=== PATIENT | male | born 1945 | race Hispanic/Latino ===

== ENCOUNTER 2018-09-01 10:08 | Emergency (ER) | payer OTHER ==
--- OUTSIDE RECORDS SUMMARY | 2018-09-01 10:10 | XMS REPORT | Clinical Summary ---
:1945 Author Organization [facility] Address [address] [place] [address] Care Team Providers Name Role Phone Asked, No Pcp Primary Care Provider Unavailable Allergies Not on File Medications Not on file Active Problems Not on file Encounters Date Type Specialty Care Team Description 07/07/2018 Hospital Encounter Radiology Alberto Gavin MD Malignant neoplasm of cecum (HCC) 07/07/2018 Lab Lab Alberto Gavin MD Malignant neoplasm of cecum (HCC) (Primary Dx) 06/29/2018 Transcribe Orders Access Alberto Gavin MD Malignant neoplasm of cecum (HCC) (Primary Dx) after 08/31/2017 Social History Tobacco Use Types Packs/Day Years Used Date Never Assessed Sex Assigned at Date Recorded Not on file Job Start Date Occupation Industry Not on file Not on file Not on file Travel History Travel Start Travel End No recent travel history available. Last Filed Vital Signs Vital Sign Reading Time Taken Blood Pressure - - Pulse - - Temperature - - Respiratory Rate - - Oxygen Saturation - - Inhaled Oxygen Concentration - - Weight 88 kg (194 lb) 07/07/2018 9:54 AM RECORD FILING CLERK Height 167.6 cm (5' 6") 07/07/2018 9:54 AM RECORD FILING CLERK Body Mass Index 31.31 07/07/2018 9:54 AM RECORD FILING CLERK Plan of Treatment Health Maintenance Due Date Last Done Comments COLON CANCER SCREENING 1993 SHINGLES VACCINES (1 of 2) 1993 INFLUENZA VACCINE 03/02/2018 PNEUMOCOCCAL-13 Completed 12/18/2015 PNEUMOCOCCAL POLYSACCHARIDE VACCINE AGE 65 AND OVER Completed 11/05/2017 Procedures Procedure Name Priority Date/Time Associated Comments Diagnosis CT CHEST WO CONTRAST Routine 07/07/2018 11:41 Malignant neoplasm Results for this ABDOMEN WO CONTRAST AM RECORD FILING CLERK of cecum (HCC) procedure are in PELVIS WO CONTRAST the results section. ESTIMATED GFR Routine 07/07/2018 9:28 Results for this AM RECORD FILING CLERK procedure are in the results section. CARCINOEMBRYONIC ANTIGEN Routine 07/07/2018 9:28 Malignant neoplasm Results for this (CEA) AM RECORD FILING CLERK of cecum (HCC) procedure are in the results section. COMPREHENSIVE METABOLIC Routine 07/07/2018 9:28 Malignant neoplasm Results for this PANEL AM RECORD FILING CLERK of cecum (HCC) procedure are in the results section. HC COMPLETE BLD COUNT Routine 07/07/2018 9:00 Malignant neoplasm Results for this W/AUTO DIFF AM RECORD FILING CLERK of cecum (HCC) procedure are in the results section. after 08/31/[address] Chest Wo Contrast Abdomen Wo Contrast Pelvis Wo Contrast (07/07/2018 11:41 AM RECORD FILING CLERK) Narrative Performed At CT CHEST WO CONTRAST ABDOMEN WO CONTRAST PELVIS WO CONTRAST HM RADIANT CLINICAL INDICATION:C18.0 Malignant neoplasm of cecum, C18.0 TECHNIQUE: Multidetector CT examination of the chest, abdomen, and pelvis was performed without iodinated contrast with automated exposure control and/or iterative reconstruction techniques to radiation dose. . COMPARISON:06/17/2017 FINDINGS: Note, exam is limited without intravenous contrast evaluation for metastatic disease. CHEST: *There are multiple calcified granulomas , largest in the anterior right lower lobe 4 mm. There is a noncalcified 3 mm nodule in the right middle lobe anterior to this nodule which is unchanged from 05/27/2016. No new pulmonary nodules are identified. *There is no pathological adenopathy in the chest. *The heart is mildly enlarged with advanced calcific coronary disease with changes of CABG. The aorta and pulmonary arteries are stable with dilated central pulmonary arteries consistent with mild pulmonary arterial hypertension. *Tyroid, trachea and central airways within normal limits. ABDOMEN: *A stable 6 mm too small to characterize probable cyst involves the lateral left hepatic lobe unchanged from 2016. No new lesions identified in liver to suggest neoplasm. *Status post cholecystectomy with stable dilatation of the common bile duct and measures 10 mm. *Pancreas, spleen, adrenal glands, and kidneys are without suspicious mass or change noting chronic atrophy of the left kidney with compensatory hypertrophic changes. *The stomach, small bowel, and colon are unchanged with multiple diverticula through the left colon. The colon is collapsed with stable changes of partial colectomy and unremarkable appearance of the ileocolic anastomosis. *There is no pathological adenopathy in the abdomen. No ascites is apparent. PELVIS: *There are multiple large calculi involving the urinary bladder as before. *Prostate and seminal vesicles are unremarkable apart from stable nonspecific calcifications. *No free fluid. *No pathological adenopathy. BONES: *No lytic or blastic osseous lesion is identified. *There is mild levo dextrocurvature of the lumbar spine. Mild retrolisthesis of L1 on L2. IMPRESSION: No findings for metastatic disease in the chest, abdomen, or pelvis. Thank you for allowing us to participate in the care of your patient. [facility]-[id number] Procedure [address] [facility], Radiology Results Incoming - 07/07/2018 2:45 PM RECORD FILING CLERK CT CHEST WO CONTRAST ABDOMEN WO CONTRAST PELVIS WO CONTRAST CLINICAL INDICATION: C18.0 Malignant neoplasm of cecum, C18.0 TECHNIQUE: Multidetector CT examination of the chest, abdomen, and pelvis was performed without iodinated contrast with automated exposure control and/or iterative reconstruction techniques to radiation dose. . COMPARISON: 06/17/2017 FINDINGS: Note, exam is limited without intravenous contrast evaluation for metastatic disease. CHEST: * There are multiple calcified granulomas , largest in the anterior right lower lobe 4 mm. There is a noncalcified 3 mm nodule in the right middle lobe anterior to this nodule which is unchanged from 05/27/2016. No new pulmonary nodules are identified. * There is no pathological adenopathy in the chest. * The heart is mildly enlarged with advanced calcific coronary disease with changes of CABG. The aorta and pulmonary arteries are stable with dilated central pulmonary arteries consistent with mild pulmonary arterial hypertension. * Tyroid, trachea and central airways within normal limits. ABDOMEN: * A stable 6 mm too small to characterize probable cyst involves the lateral left hepatic lobe unchanged from 2016. No new lesions identified in liver to suggest neoplasm. * Status post cholecystectomy with stable dilatation of the common bile duct and measures 10 mm. * Pancreas, spleen, adrenal glands, and kidneys are without suspicious mass or change noting chronic atrophy of the left kidney with compensatory hypertrophic changes. * The stomach, small bowel, and colon are unchanged with multiple diverticula through the left colon. The colon is collapsed with stable changes of partial colectomy and unremarkable appearance of the ileocolic anastomosis. * There is no pathological adenopathy in the abdomen. No ascites is apparent. PELVIS: * There are multiple large calculi involving the urinary bladder as before. * Prostate and seminal vesicles are unremarkable apart from stable nonspecific calcifications. * No free fluid. * No pathological adenopathy. BONES: * No lytic or blastic osseous lesion is identified. * There is mild levo dextrocurvature of the lumbar spine. Mild retrolisthesis of L1 on L2. IMPRESSION: No findings for metastatic disease in the chest, abdomen, or pelvis. Thank you for allowing us to participate in the care of your patient. [facility]-[id number] Performing Organization Address City/[facility]/Zipcode Phone Number [facility] [address] [place] [phone] Estimated GFR (07/07/2018 9:28 AM RECORD FILING CLERK) Estimated GFR 37 (A) mL/min/1.73 m2 [facility] Comment: HOSPITAL CatergoryUnitsInterpretation G1 >=90 Normal or high G2 60-89Mildly decreased [id number] to moderately decreased [id number] to severely decreased G4 15-29Severely decreased G5 <15Kidney failure The eGFR was calculated using the Chronic Kidney Disease Epidemiology Collaboration (CKD-EPI) equation. Interpretation is based on recommendations of the National Kidney Foundation-Kidney Disease Outcomes Quality Initiative (NKF-KDOQI) published in 2014. Specimen Plasma specimen Performing Organization Address [facility] Hospital[facility] Phone Number [facility] DEPARTMENT OF PATHOLOGY AND [address] [place] [phone] [address] Carcinoembryonic antigen (CEA) (07/07/2018 9:28 AM RECORD FILING CLERK) CEA 4.2 (H) 0.0 - 3.8 ng/mL [facility] Comment: Reference range for heavy smokers:0.0 - 5.5 ng/mL The SANDRA Ernestina 8000 CEA immunoassay was used. Results obtained with different assay methods or kits should not be used interchangeably and may be different. Specimen Serum Performing Organization Address [facility]/Zipcode Phone Number [facility] DEPARTMENT OF PATHOLOGY AND [address] [place] [phone] [address] Comprehensive metabolic panel (07/07/2018 9:28 AM RECORD FILING CLERK) Sodium 140 135 - 148 mEq/L [facility] Potassium 4.8 3.5 - 5.0 mEq/L [facility] Chloride 102 98 - 112 mEq/L [facility] CO2 24 24 - 31 mEq/L [facility] Anion gap 14@ANIO 7 - 15 mEq/L [facility] BUN 27 (H) 8 - 23 mg/dL [facility] Creatinine 1.76 (H) 0.70 - 1.20 mg/dL [facility] Glucose 172 (H) 65 - 99 mg/dL [facility] Calcium 9.9 8.8 - 10.2 mg/dL [facility] Protein 7.5 6.3 - 8.3 g/dL [facility] Comment: HOSP[facility] [place] 4.6-7.0 g/dL 1 week 4.4-7.6 g/dL 7 months-1year5.1-7.3 g/dL 1-2 years5.6-7.5 g/dL >3 years6.0-8.0 g/dL 18-150 6.3-8.3 g/dL Albumin 4.1 3.5 - 5.0 g/dL [facility] A/G ratio 1.2 0.7 - 3.8 [facility] Alkaline phosphatase 85 40 - 129 U/L [facility] AST 30 10 - 50 U/L [facility] ALT 25 5 - 50 U/L [facility] Total bilirubin 0.7 0.0 - 1.2 mg/dL [facility] Specimen Plasma specimen Performing Organization Address City/State/Zipcode Phone Number [facility] DEPARTMENT OF PATHOLOGY AND [address] [place] [address] GENOMIC MEDICINE [address] [address] CBC with platelet and differential (07/07/2018 9:00 AM RECORD FILING CLERK) WBC 7.79 4.50 - 11.00 k/uL [facility] RBC 5.34 4.40 - 6.00 m/uL [facility] HGB 15.5 14.0 - 18.0 g/dL [facility] HCT 48.0 41.0 - 51.0 % [facility] MCV 89.9 82.0 - 100.0 fL [facility] MCH 29.0 27.0 - 34.0 pg [facility] MCHC 32.3 31.0 - 37.0 g/dL [facility] RDW - SD 46.5 37.0 - 55.0 fL [facility] MPV 10.3 8.8 - 13.2 fL [facility] Platelet count 129 (L) 150 - 400 k/uL [facility] Nucleated RBC 0.00 /100 WBC [facility] Neutrophils 65.6 39.0 - 69.0 % [facility] Lymphocytes 23.9 (L) 25.0 - 45.0 % [facility] Monocytes 8.0 0.0 - 10.0 % [facility] Eosinophils 1.7 0.0 - 5.0 % [facility] Basophils 0.4 0.0 - 1.0 % [facility] Immature granulocytes 0.4Comment: "Immature 0.0 - 1.0 % [facility] granulocytes" [facility] (promyelocytes, myelocytes, metamyelocytes) Specimen Blood Performing Organization Address City/State/Zipcode Phone Number [facility] DEPARTMENT OF PATHOLOGY AND [address] [place] [address] GENOMIC MEDICINE [address] [address] after 08/31/2017 Insurance Payer Benefit Plan / Group Subscriber ID Type Phone Address MEDICARE MEDICARE PART A AND B xxxxxxxxxxx Medicare [place], [place] (Home) [place] [address] Advance Directives Patient has advance care planning documents on file. For more information, please contact:[address] [address]
[2018-09-01 11:11] LABS: Absolute Lymphocytes (CBC) 0.8 K/uL (0.7-4.9); Absolute Monocytes 0.6 K/uL (0.1-1.3); Absolute Neutrophil 6.1 K/uL (1.8-8.0); Basophils % 0.2 % (0-1.3); Lymphocytes % 10.5 % (15.3-44.8); MPV 8.8 fL (7.6-11.3); Monocytes % 7.5 % (3.3-12.3); RBC Red Blood Cell Count 5.26 M/uL (4.33-5.43)
[2018-09-01 11:27] LABS: Albumin 3.7 g/dL (3.4-5.0); Bilirubin Total 0.5 mg/dL (0.2-1.0); Potassium 3.7 mmol/L (3.5-5.1)
--- NOTE | 2018-09-01 13:16 | EDPHYS ---
Physician Documentation [facility] Name: Penelope De Leon Age: 72 yrs Sex: Male : 1945 Arrival Date: 09/01/2018 Time: 10:11 Bed 19 Private MD: ED Physician Trey Headley HPI: 09/01 10:53 This 72 yrs old Male presents to ER via EMS with complaints of Low Blood Sugar.jmm 10:53 The patient or guardian reports hypoglycemia. Onset: The symptoms/episode jmm began/occurred acutely, today. Associated signs and symptoms: Pertinent negatives: vomiting. This is a 72 year old male with a history of IDDM, HTN, CAD that presents to the ED with low blood glucose. Patient states he took his blood glucose at home this morning which was 101. Patient states then injecting 38 units of soliqua. Patient states his blood glucose dropped. Patient states he normally does not administer on an empty stomach. Patient denies other symptoms. . Historical: - Allergies: 10:43 No Known Allergies; aj1 - Home Meds: 10:43 Multaq 400 mg oral tab 1 tab 2 times per day [Active]; aspirin 81 mg Oral chew 1 tab aj1 once daily [Active]; hydralazine 25 mg Oral tab 1 tab 3 times daily [Active]; losartan 100 mg oral tab 1 tab once daily [Active]; Synthroid 88 mcg Oral tab 1 tab once daily [Active]; Januvia 25 mg oral tab at lunchtime [Active]; pravastatin 40 mg oral tab 1 tab once daily [Active]; allopurinol 300 mg Oral tab 1 tab once daily [Active]; terazosin 2 mg oral cap 1 cap once daily [Active]; soliqua 38 units [Active]; alprazolam 0.25 mg Oral tab 1 tab as needed [Active]; - PMHx: 10:43 Diabetes - NIDDM; Hypertension; Hypothyroidism; bypass x6; Atrial Fib; Hyperlipidemia; aj1 Gout; - Immunization history:: Flu vaccine is up to date. - Social history:: Smoking status: Patient/guardian denies using tobacco. - Ebola Screening: : Patient denies travel to an Ebola-affected area in the 21 days before illness onset. ROS: 10:53 Constitutional: Negative for fever, chills, and weight loss, Cardiovascular: Negative jmm for chest pain, palpitations, and edema, Respiratory: Negative for shortness of breath, cough, wheezing, and pleuritic chest pain, Neuro: Negative for headache, weakness, numbness, tingling, and seizure. 10:53 All other systems are negative. Exam: 10:53 Constitutional: This is a well developed, well nourished patient who is awake, alert, jmm and in no acute distress. Head/Face: atraumatic. Eyes: EOMI, no conjunctival erythema appreciated ENT: Moist Mucus Membranes Neck: Trachea midline, Supple Chest/axilla: Normal chest wall appearance and motion. 10:53 Abdomen/GI: Non distended, soft Back: Normal ROM Skin: General appearance color normal MS/ Extremity: Moves all extremities, no obvious deformities appreciated, no edema noted to the lower extremities Neuro: Awake and alert, normal gait Psych: Behavior is normal, Mood is normal, Patient is cooperative and pleasant 10:53 Cardiovascular: Rate: normal, Rhythm: regular. 10:53 Respiratory: the patient does not display signs of respiratory distress, Respirations: normal, Breath sounds: are clear throughout. Vital Signs: 10:43 BP 147 / 97; Pulse 65; Resp 18; Temp 98.7; Pulse Ox 97% on R/A; Weight 88.9 kg (R); aj1 Height 5 ft. 6 in. (167.64 cm) (R); Pain 0/10; 12:49 BP 177 / 80; Pulse 72; Resp 18; Pulse Ox 97% on R/A; aj1 10:43 Body Mass Index 31.63 (88.90 kg, 167.64 cm) 1 MDM: 10:51 Patient medically screened. [facility] 13:14 Data reviewed: vital signs, nurses notes. Counseling: I had a detailed discussion with martin the patient and/or guardian regarding: the historical points, exam findings, and any diagnostic results supporting the discharge/admit diagnosis, lab results, the need for outpatient follow up, to return to the emergency department if symptoms worsen or persist or if there are any questions or concerns that arise at home. ED course: BGL stable in the ER. Patient is advised to hold Januvia today and eat small frequent meals and can then continue normal medication. Patient and family understood and agree with the plan of care. . 09/01 10:51 Order name: CBC with Diff [facility] 09/01 10:51 Order name: CMP [facility] 09/01 10:51 Order name: Saline Lock; Complete Time: 10:55 [facility] 09/01 13:01 Order name: Fingerstick Glucose; Complete Time: 13:09 [facility] Administered Medications: No medications were administered Point of Care Testing: Blood Glucose: 11:02 Blood Glucose: 165 mg/dL; aj1 11:50 Blood Glucose: 128 mg/dL; dh3 12:48 Blood Glucose: 144 mg/dL; aj1 Ranges: Critical Glucose Levels:Adult <50 mg/dl or >400 mg/dl <40 mg/dl or >180 mg/dl Disposition: 16:14 Co-signature as Attending Physician, Trey Headley MD I agree with the assessment and kdr plan of care. Disposition: 09/01/18 13:15 Discharged to Home. Impression: Hypoglycemia, unspecified. - Condition is Stable. - Discharge Instructions: Hypoglycemia. - Medication Reconciliation Form, Thank You Letter, Antibiotic Education, Prescription Opioid Use form. - Follow up: Private Physician; When: 2 - 3 days; Reason: Recheck today's complaints, Continuance of care, Re-evaluation by your physician. Signatures: Dispatcher [employer] Rina Fan RN RN aj1 Trey Headley MD MD kdr Mickail, Joel, PA PA jm Kristine Weber, TRACEY RN ss Corrections: (The following items were deleted from the chart) 13:43 13:15 09/01/2018 13:15 Discharged to Home. Impression: Hypoglycemia, unspecified. ss Condition is Stable. Forms are Medication Reconciliation Form, Thank You Letter, Antibiotic Education, Prescription Opioid Use. Follow up: Private Physician; When: 2 - 3 days; Reason: Recheck today's complaints, Continuance of care, Re-evaluation by your physician. [facility]
--- NOTE | 2018-09-01 13:16 | ER ---
Nurse's Notes [facility] Name: Penelope De Leon Age: 72 yrs Sex: Male : 1945 Arrival Date: 09/01/2018 Time: 10:11 Bed 19 Private MD: Diagnosis: Hypoglycemia, unspecified Presentation: 09/01 10:34 Presenting complaint: EMS states: When he got up this morning he checked his blood aj1 sugar and it was 101, so he took his insulin, but he did not eat breakfast. He told his he was not feeling good and when she rechecked his blood sugar it was 34. She gave him a Coke and some orange juice, on EMS arrival patient's FSBS was 38. Patient was given Glucose 25 Gms PO and FSBS increased to 415, but en route dropped again to 62. Patient was started on Dextrose 10% IV solution. FSBS upon arrival to ER is 291. Patient states that he is feeling better. Transition of care: patient was not received from another setting of care. Onset of symptoms was September 01, 2018. Risk Assessment: Do you want to hurt yourself or someone else? Patient reports no desire to harm self or others. Initial Sepsis Screen: Does the patient meet any 2 criteria? No. Patient's initial sepsis screen is negative. Does the patient have a suspected source of infection? No. Patient's initial sepsis screen is negative. Care prior to arrival: None. 10:34 Method Of Arrival: EMS: [facility] aj1 10:34 Acuity: FER 3 aj1 Triage Assessment: 10:43 General: Appears in no apparent distress. comfortable, Behavior is calm. Pain: Denies aj1 pain. Historical: - Allergies: 10:43 No Known Allergies; aj1 - Home Meds: 10:43 Multaq 400 mg oral tab 1 tab 2 times per day [Active]; aspirin 81 mg Oral chew 1 tab aj1 once daily [Active]; hydralazine 25 mg Oral tab 1 tab 3 times daily [Active]; losartan 100 mg oral tab 1 tab once daily [Active]; Synthroid 88 mcg Oral tab 1 tab once daily [Active]; Januvia 25 mg oral tab at lunchtime [Active]; pravastatin 40 mg oral tab 1 tab once daily [Active]; allopurinol 300 mg Oral tab 1 tab once daily [Active]; terazosin 2 mg oral cap 1 cap once daily [Active]; soliqua 38 units [Active]; alprazolam 0.25 mg Oral tab 1 tab as needed [Active]; - PMHx: 10:43 Diabetes - NIDDM; Hypertension; Hypothyroidism; bypass x6; Atrial Fib; Hyperlipidemia; aj1 Gout; - Immunization history:: Flu vaccine is up to date. - Social history:: Smoking status: Patient/guardian denies using tobacco. - Ebola Screening: : Patient denies travel to an Ebola-affected area in the 21 days before illness onset. Screenin:45 Abuse screen: Denies threats or abuse. Denies injuries from another. Nutritional aj1 screening: No deficits noted. Tuberculosis screening: No symptoms or risk factors identified. Assessment: 10:45 General: Appears in no apparent distress. comfortable, Behavior is calm, cooperative, aj1 appropriate for age. Pain: Denies pain. Neuro: Level of Consciousness is awake, alert, obeys commands, Oriented to person, place, time, situation, Moves all extremities. Full function Speech is normal. Cardiovascular: Patient's skin is warm and dry. Respiratory: Airway is patent Respiratory effort is even, unlabored, Respiratory pattern is regular, symmetrical. GI: No signs and/or symptoms were reported involving the gastrointestinal system. : No signs and/or symptoms were reported regarding the genitourinary system. EENT: No signs and/or symptoms were reported regarding the EENT system. Derm: No signs and/or symptoms reported regarding the dermatologic system. Skin is pink, warm \T\ dry. normal. Musculoskeletal: No signs and/or symptoms reported regarding the musculoskeletal system. Circulation, motion, and sensation intact. 10:47 Reassessment: Patient given a sandwich and fruit cup. aj1 11:45 Reassessment: Patient appears in no apparent distress at this time. No changes from aj1 previously documented assessment. Patient and/or family updated on plan of care and expected duration. Pain level reassessed. Patient is alert, oriented x 3, equal unlabored respirations, skin warm/dry/pink. 12:49 Reassessment: Patient appears in no apparent distress at this time. No changes from aj1 previously documented assessment. Patient and/or family updated on plan of care and expected duration. Pain level reassessed. Patient is alert, oriented x 3, equal unlabored respirations, skin warm/dry/pink. 13:43 Reassessment: Patient appears in no apparent distress at this time. No changes from aj1 previously documented assessment. Patient and/or family updated on plan of care and expected duration. Pain level reassessed. Patient is alert, oriented x 3, equal unlabored respirations, skin warm/dry/pink. Vital Signs: 10:43 BP 147 / 97; Pulse 65; Resp 18; Temp 98.7; Pulse Ox 97% on R/A; Weight 88.9 kg (R); aj1 Height 5 ft. 6 in. (167.64 cm) (R); Pain 0/10; 12:49 BP 177 / 80; Pulse 72; Resp 18; Pulse Ox 97% on R/A; aj1 10:43 Body Mass Index 31.63 (88.90 kg, 167.64 cm) [facility] ED Course: 10:11 Patient arrived in ED. 10:33 Scott Louis PA is PHCP. [facility] 10:33 Trey Headley MD is Attending Physician. [facility] 10:33 Rina Flores, RN is Primary Nurse. aj1 10:37 Triage completed. aj1 10:43 Arm band placed on. aj1 10:45 Patient has correct armband on for positive identification. Bed in low position. Call [facility] light in reach. Side rails up X 1. 10:45 No provider procedures requiring assistance completed. aj1 10:45 Maintain EMS IV. Dressing intact. Good blood return noted. Site clean \T\ dry. Gauge \T\ aj 1 site: 20g left hand. 13:41 IV discontinued, intact, bleeding controlled, No redness/swelling at site. Pressure ss dressing applied. Administered Medications: No medications were administered Point of Care Testing: Blood Glucose: 11:02 Blood Glucose: 165 mg/dL; aj1 11:50 Blood Glucose: 128 mg/dL; dh3 12:48 Blood Glucose: 144 mg/dL; aj1 Ranges: Outcome: 13:15 Discharge ordered by . [facility] 13:41 Discharged to home with family. ss 13:41 Condition: good 13:41 Discharge instructions given to patient, family, Instructed on discharge instructions, follow up and referral plans. Demonstrated understanding of instructions, follow-up care. 13:43 Patient left the ED. ss Signatures: Rina Flores RN RN aj1 Scott Louis PA PA jmm Smirch, Shelby, RN RN ss Eleni Jackman 3
[2018-09-01 14:45] VITALS: TEMP 98.7; O2SAT 97
[2018-09-01 14:46] VITALS: BP 177/80
== END 2018-09-01 13:43 | disposition home or self-care (01) ==
LOC: ER 10:08
DX: E11.649 Type 2 diabetes mellitus with hypoglycemia without coma (principal); I25.10 Atherosclerotic heart disease of native coronary artery without angina pectoris; I10 Essential (primary) hypertension; E03.9 Hypothyroidism, unspecified; I48.91 Unspecified atrial fibrillation; Z79.82 Long term (current) use of aspirin; E78.5 Hyperlipidemia, unspecified; M10.9 Gout, unspecified
CPT/HCPCS: 36415; 80053; 82962; 85025; 99283

== ENCOUNTER 2019-03-25 04:34 | Emergency (ER) | payer OTHER ==
--- NOTE | 2019-03-25 06:30 | ER ---
Nurse's Notes [facility] Name: Penelope De Leon Age: 73 yrs Sex: Male : 1945 Arrival Date: 03/25/2019 Time: 04:36 Bed 8 Private MD: Diagnosis: Pain in right knee Presentation: 03/25 04:45 Presenting complaint: states: that 1 1/2 years ago pt fell and hit right knee on fc the ground, it got better over some time. Then 3 weeks ago he started to have the same pain on and off but no injury this time. Feels as if his knee cap is moving. Then last night the pain became constant and is now radiated up and down his leg. Transition of care: patient was not received from another setting of care. Onset of symptoms was March 2019. Risk Assessment: Do you want to hurt yourself or someone else? Patient reports no desire to harm self or others. Initial Sepsis Screen: Does the patient meet any 2 criteria? No. Patient's initial sepsis screen is negative. Does the patient have a suspected source of infection? No. Patient's initial sepsis screen is negative. Care prior to arrival: Medication(s) given: Tylenol, last at 0030. 04:45 Method Of Arrival: Wheelchair fc 04:45 Acuity: FER 4 fc Triage Assessment: 04:45 General: Appears uncomfortable, obese, well groomed, Behavior is calm, cooperative, fc appropriate for age. Pain: Complains of pain in right knee Pain radiates to up and down right leg Pain currently is 8 out of 10 on a pain scale. at worst was 10 out of 10 on a pain scale. Quality of pain is described as aching, sharp, throbbing, Is continuous, Aggravated by increased activity, repositioning, weight bearing. EENT: No deficits noted. Neuro: Level of Consciousness is awake, alert, obeys commands, Oriented to person, place, time, situation, Appropriate for age. Cardiovascular: No deficits noted. Respiratory: No deficits noted. GI: No deficits noted. : No deficits noted. Derm: Skin is pink, warm \T\ dry. Musculoskeletal: Capillary refill Range of motion: limited in right knee Reports pain in right knee. Historical: - Allergies: 05:14 NSAIDS; fc - Home Meds: 05:14 allopurinol 300 mg Oral tab 1 tab once daily [Active]; aspirin 81 mg Oral chew 1 tab fc once daily [Active]; calcium carbonate with vit D 500-200 mg daily [Active]; Co Q-10 oral oral daily [Active]; hydralazine 25 mg Oral tab 1 tab 3 times daily [Active]; Januvia 25 mg Oral tab at lunchtime [Active]; losartan 100 mg Oral tab 1 tab once daily [Active]; pravastatin 40 mg Oral tab 1 tab once daily [Active]; Soliqua 60 units daily [Active]; Synthroid 88 mcg Oral tab 1 tab once daily [Active]; terazosin 2 mg Oral cap 1 cap twice a day [Active]; Vitamin D Oral 5000 unit daily [Active]; - PMHx: 05:14 Atrial Fib; Diabetes - NIDDM; Gout; bypass x6; Hypertension; Hyperlipidemia; fc Hypothyroidism; CAD; colon cancer; Kidney stones; - PSHx: 05:14 heart bypass; Bowel resection; fc - Immunization history:: Last tetanus immunization: up to date Pneumococcal vaccine is up to date, Flu vaccine is up to date. - Social history:: Smoking status: Patient/guardian denies using tobacco, Patient/guardian denies using alcohol, street drugs. - Ebola Screening: : Patient negative for fever greater than or equal to 101.5 degrees Fahrenheit, and additional compatible Ebola Virus Disease symptoms Patient denies exposure to infectious person Patient denies travel to an Ebola-affected area in the 21 days before illness onset. Screenin:45 Abuse screen: Denies threats or abuse. Denies injuries from another. Nutritional rr5 screening: No deficits noted. Tuberculosis screening: No symptoms or risk factors identified. Fall Risk Gait- Impaired (20 pts.). Total Coronado Fall Scale indicates No Risk (0-24 pts). Assessment: 04:45 General: Appears in no apparent distress. uncomfortable, Behavior is calm, cooperative, rr5 appropriate for age. 04:45 Pain: Complains of pain in right knee Pain radiates to right leg Pain currently is 8 rr5 out of 10 on a pain scale. Quality of pain is described as aching, Pain began gradually, Is intermittent. Neuro: Level of Consciousness is awake, alert, obeys commands, Oriented to person, place, time, situation, Appropriate for age. Cardiovascular: Capillary refill < 3 seconds Patient's skin is warm and dry. Respiratory: Airway is patent Respiratory effort is even, unlabored, Respiratory pattern is regular, symmetrical. GI: No signs and/or symptoms were reported involving the gastrointestinal system. : No signs and/or symptoms were reported regarding the genitourinary system. EENT: No signs and/or symptoms were reported regarding the EENT system. Derm: Skin is intact, Skin temperature is warm. Musculoskeletal: Circulation, motion, and sensation intact. Capillary refill < 3 seconds, Range of motion: limited in right knee Swelling present in right knee. 05:30 Reassessment: ED provider informed patient complaining of right knee pain. without rr5 orders made as of this time. cold compress applied and elevation.. 06:15 Reassessment: Patient appears in no apparent distress at this time. Patient is alert, rr5 oriented x 3, equal unlabored respirations, skin warm/dry/pink. Patient states feeling better. Patient states symptoms have improved. 07:00 Reassessment: Patient appears in no apparent distress at this time. Patient is alert, rr5 oriented x 3, equal unlabored respirations, skin warm/dry/pink. discharge instruction given and explained without complaints made, verbalized understanding. Vital Signs: 04:45 BP 173 / 91; Pulse 78; Resp 18; Temp 98.0(O); Pulse Ox 97% on R/A; Weight 90.72 kg (R); fc Height 5 ft. 6 in. (167.64 cm) (R); Pain 8/10; 06:20 BP 195 / 112; Pulse 79; Resp 16; Pulse Ox 100% ; Pain 8/10; rr5 07:00 BP 172 / 90; Pulse 75; Resp 17; Pulse Ox 99% ; Pain 4/10; rr5 04:45 Body Mass Index 32.28 (90.72 kg, 167.64 cm) ED Course: 04:36 Patient arrived in ED. ds1 04:45 Arm band placed on Patient placed in an exam room, on a stretcher. fc 04:45 Patient has correct armband on for positive identification. Bed in low position. Call rr5 light in reach. 05:06 Triage completed. fc 05:33 Knee Right 3 View XRAY In Process Unspecified. EDMS 05:34 Omar Molina RN is Primary Nurse. rr5 05:54 Darcie Anderson FNP-C is PHCP. kraig 05:54 Gustavo Benson MD is Attending Physician. kb 06:50 Knee immobilizer applied on right knee. rr5 07:04 No provider procedures requiring assistance completed. Patient did not have IV access rr5 during this emergency room visit. Administered Medications: 06:46 Drug: traMADol 50 mg Route: PO; rr5 07:05 Follow up: Response: Medication administered at discharge. rr5 Outcome: 06:30 Discharge ordered by . kraig 07:04 Discharged to home via wheelchair, with family. rr5 07:04 Condition: stable 07:04 Discharge instructions given to patient, family, Instructed on discharge instructions, follow up and referral plans. medication usage, Demonstrated understanding of instructions, follow-up care, medications, Prescriptions given X 1. 07:05 Patient left the ED. rr5 Signatures: Dispatcher [employer] EDMS Darcie Anderson FNP-C FNP-Ckb Chretien, Felicia, RN RN fc Sanford, Demi ds Omar Molina RN RN rr5
--- NOTE | 2019-03-25 06:31 | EDPHYS ---
Physician Documentation [facility] Name: Penelope De Leon Age: 73 yrs Sex: Male : 1945 Arrival Date: 03/25/2019 Time: 04:36 Bed 8 Private MD: ED Physician Gustavo Benson HPI: 03/25 06:23 This 73 yrs old Male presents to ER via Wheelchair with complaints of Knee kb Pain. 06:23 The patient presents with pain, that is acute, swelling, tenderness. The complaints kb affect the right knee. 06:26 Context: The problem was sustained at an unknown site, resulted from an unknown cause, kb believes it was from a fall 18 months ago, the patient can fully bear weight, the patient is able to ambulate. Onset: The symptoms/episode began/occurred 3 week(s) ago. Modifying factors: The symptoms are alleviated by nothing. the symptoms are aggravated by nothing. 06:26 Associated signs and symptoms: Pertinent positives: swelling, Pertinent negatives calf kb tenderness, fever, nausea, numbness, rash, tingling, vomiting, warmth, weakness. Treatment prior to arrival includes: no previous treatment. Severity of symptoms: At their worst the symptoms were moderate, in the emergency department the symptoms are unchanged. The patient has not experienced similar symptoms in the past. The patient has not recently seen a physician. reports pt fell 18 months ago onto the right knee and had pain for about 10 days that went away on its own. Started having the pain again 3 weeks ago without accident or trauma that has been getting worse. . Historical: - Allergies: 05:14 NSAIDS; fc - Home Meds: 05:14 allopurinol 300 mg Oral tab 1 tab once daily [Active]; aspirin 81 mg Oral chew 1 tab fc once daily [Active]; calcium carbonate with vit D 500-200 mg daily [Active]; Co Q-10 oral oral daily [Active]; hydralazine 25 mg Oral tab 1 tab 3 times daily [Active]; Januvia 25 mg Oral tab at lunchtime [Active]; losartan 100 mg Oral tab 1 tab once daily [Active]; pravastatin 40 mg Oral tab 1 tab once daily [Active]; Soliqua 60 units daily [Active]; Synthroid 88 mcg Oral tab 1 tab once daily [Active]; terazosin 2 mg Oral cap 1 cap twice a day [Active]; Vitamin D Oral 5000 unit daily [Active]; - PMHx: 05:14 Atrial Fib; Diabetes - NIDDM; Gout; bypass x6; Hypertension; Hyperlipidemia; fc Hypothyroidism; CAD; colon cancer; Kidney stones; - PSHx: 05:14 heart bypass; Bowel resection; fc - Immunization history:: Last tetanus immunization: up to date Pneumococcal vaccine is up to date, Flu vaccine is up to date. - Social history:: Smoking status: Patient/guardian denies using tobacco, Patient/guardian denies using alcohol, street drugs. - Ebola Screening: : Patient negative for fever greater than or equal to 101.5 degrees Fahrenheit, and additional compatible Ebola Virus Disease symptoms Patient denies exposure to infectious person Patient denies travel to an Ebola-affected area in the 21 days before illness onset. ROS: 06:22 Constitutional: Negative for fever, chills, and weight loss, Cardiovascular: Negative kb for chest pain, palpitations, and edema, Respiratory: Negative for shortness of breath, cough, wheezing, and pleuritic chest pain, Abdomen/GI: Negative for abdominal pain, nausea, vomiting, diarrhea, and constipation, Skin: Negative for injury, rash, and discoloration, Neuro: Negative for headache, weakness, numbness, tingling, and seizure. 06:22 MS/extremity: Positive for pain, swelling, tenderness, Negative for decreased range of motion. Exam: 06:21 Constitutional: This is a well developed, well nourished patient who is awake, alert, kb and in no acute distress. Head/Face: Normocephalic, atraumatic. Neck: Trachea midline, no thyromegaly or masses palpated, and no cervical lymphadenopathy. Supple, full range of motion without nuchal rigidity, or vertebral point tenderness. No Meningismus. Chest/axilla: Normal chest wall appearance and motion. Nontender with no deformity. No lesions are appreciated. Cardiovascular: Regular rate and rhythm with a normal S1 and S2. No gallops, murmurs, or rubs. Normal PMI, no JVD. No pulse deficits. Respiratory: Lungs have equal breath sounds bilaterally, clear to auscultation and percussion. No rales, rhonchi or wheezes noted. No increased work of breathing, no retractions or nasal flaring. Abdomen/GI: Soft, non-tender, with normal bowel sounds. No distension or tympany. No guarding or rebound. No evidence of tenderness throughout. Back: No spinal tenderness. No costovertebral tenderness. Full range of motion. Skin: Warm, dry with normal turgor. Normal color with no rashes, no lesions, and no evidence of cellulitis. Neuro: Awake and alert, GCS 15, oriented to person, place, time, and situation. Cranial nerves II-XII grossly intact. Motor strength 5/5 in all extremities. Sensory grossly intact. Cerebellar exam normal. Normal gait. 06:21 Musculoskeletal/extremity: Extremities: grossly normal except: noted in the right knee: pain, swelling, tenderness, ROM: intact in all extremities, Circulation is intact in all extremities. Sensation intact. Weight bearing: able to fully bear weight. Vital Signs: 04:45 BP 173 / 91; Pulse 78; Resp 18; Temp 98.0(O); Pulse Ox 97% on R/A; Weight 90.72 kg (R); fc Height 5 ft. 6 in. (167.64 cm) (R); Pain 8/10; 06:20 BP 195 / 112; Pulse 79; Resp 16; Pulse Ox 100% ; Pain 8/10; rr5 07:00 BP 172 / 90; Pulse 75; Resp 17; Pulse Ox 99% ; Pain 4/10; rr5 04:45 Body Mass Index 32.28 (90.72 kg, 167.64 cm) MDM: 05:54 Patient medically screened. kb 06:21 Data reviewed: vital signs, nurses notes. Data interpreted: Pulse oximetry: on room air kb is 97 %. Interpretation: normal. Counseling: I had a detailed discussion with the patient and/or guardian regarding: the historical points, exam findings, and any diagnostic results supporting the discharge/admit diagnosis, radiology results, the need for outpatient follow up, a family practitioner, a orthopedic surgeon, to return to the emergency department if symptoms worsen or persist or if there are any questions or concerns that arise at home. 03/25 05:14 Order name: Knee Right 3 View XRAY 03/25 06:31 Order name: Knee Immobilizer; Complete Time: 06:45 kb Administered Medications: 06:46 Drug: traMADol 50 mg Route: PO; rr5 07:05 Follow up: Response: Medication administered at discharge. rr5 Disposition: 03/26 01:54 Co-signature as Attending Physician, Gustavo Benson MD I agree with the assessment and tw4 plan of care. Disposition: 03/25/19 06:30 Discharged to Home. Impression: Pain in right knee. - Condition is Stable. - Discharge Instructions: Knee Pain, [id number]. - Prescriptions for Tramadol 50 mg Oral Tablet - take 1 tablet by ORAL route every 8 hours as needed; 12 tablet. - Medication Reconciliation Form, Thank You Letter, Antibiotic Education, Prescription Opioid Use form. - Follow up: Private Physician; When: 2 - 3 days; Reason: Recheck today's complaints, Continuance of care, Re-evaluation by your physician. Follow up: Emergency Department; When: As needed; Reason: Worsening of condition. Signatures: Dispatcher [employer] EDUT Darcie Anderson, Annabella Nguyen RN RN Gustavo Tavarez MD MD tw4 Omar Molina RN RN rr5 Corrections: (The following items were deleted from the chart) 03/25 07:05 06:30 03/25/2019 06:30 Discharged to Home. Impression: Pain in right knee. Condition is rr5 Stable. Forms are Medication Reconciliation Form, Thank You Letter, Antibiotic Education, Prescription Opioid Use. Follow up: Private Physician; When: 2 - 3 days; Reason: Recheck today's complaints, Continuance of care, Re-evaluation by your physician. Follow up: Emergency Department; When: As needed; Reason: Worsening of condition. kb
[2019-03-25] MEDS ORDERED: TRAMADOL HCL 50 MG TAB ONE (06:34)
[2019-03-25 07:34] VITALS: TEMP 98
[2019-03-25 07:36] VITALS: BP 172/90; O2SAT 99
--- NOTE | 2019-03-25 09:33 | RAD REPORT ---
EXAM DESCRIPTION: RAD - Knee Right 3 View - 03/25/2019 5:32 am CLINICAL HISTORY: Persistent nontraumatic right pain, history of knee injury remotely. COMPARISON: None. FINDINGS: No fracture, dislocation or periosteal reaction.Joint effusion is present [id number] in degree. No fat fluid level seen. No joint space narrowing. No abnormal bony spurring. No suspicio us soft tissue finding. IMPRESSION: Joint effusion without acute bone finding. Clinical concerns for internal derangement or occult bony injury could be further assessed with MR im aging.
== END 2019-03-25 07:05 | disposition home or self-care (01) ==
LOC: ER 04:34
DX: M25.561 Pain in right knee (principal); I10 Essential (primary) hypertension; E11.9 Type 2 diabetes mellitus without complications; I48.91 Unspecified atrial fibrillation; I25.10 Atherosclerotic heart disease of native coronary artery without angina pectoris; E03.9 Hypothyroidism, unspecified; Z95.1 Presence of aortocoronary bypass graft; Z85.038 Personal history of other malignant neoplasm of large intestine
CPT/HCPCS: 99284

== ENCOUNTER 2020-03-25 13:55 | Inpatient (IN) | payer OTHER ==
--- OUTSIDE RECORDS SUMMARY | 2020-03-25 14:00 | XMS REPORT | Clinical Summary ---
:1945 Author Organization [facility] Address [address] [place] [address] Care Team Providers Name Role Phone Barrett Harvey Primary Care Provider Allergies No Known Allergies Medications Not on file Active Problems Not on file Encounters Date Type Specialty Care Team Description 08/25/2019 Hospital Encounter Cardiology Kp Beavers Roberto, MD unspecified typ e (HCC) 08/24/2019 Outside Orders Central Scheduling Keri Beavers l Sundar moyer MD unspecified typ e (HCC) (Primary Dx) after 03/25/2019 Social History Tobacco Use Types Packs/Day Years Used Date Never Assessed Sex Assigned at Date Recorded Not on file Job Start Date Occupation Industry Not on file Not on file Not on file Travel History Travel Start Travel End No recent travel history available. Last Filed Vital Signs Vital Sign Reading Time Taken Blood Pressure 110/61 08/25/2019 3:25 PM [employer] Pulse 52 08/25/2019 3:25 PM [employer] Temperature - - Respiratory Rate 18 08/25/2019 3:25 PM [employer] Oxygen Saturation 96% 08/25/2019 3:25 PM [employer] Inhaled Oxygen Concentration - - Weight - - Height - - Body Mass Index - - Plan of Treatment Not on file Procedures Procedure Name Priority Date/Time Associated Comments Diagnosis RHYTHM STRIP - SCAN 08/29/2019 12:22 PM [employer] ECHOCARDIOGRAM REPORT - 08/28/2019 9:13 SCAN PM [employer] TRANSESOPHAGEAL ECHO Routine 08/25/2019 1:53 Atrial flutter, Results for this PM [employer] ENGINEER unspecified type procedure a re in (HCC) the results section. CARDIOVERSION Routine 08/25/2019 1:30 Atrial Flutter, PM [employer] ENGINEER Unspecified Type (Hcc) COLOR-FLOW MAPPING Routine 08/25/2019 1:30 Atrial Flutter, PM [employer]IST ENGINEER Unspecified Type (Hcc) CONT WAVE PULSED Routine 08/25/2019 1:30 Atrial Flutter, DOPPLER PM [employer]IST ENGINEER Unspecified Type (Hcc) after 03/25/2019 Results RHYTHM STRIP - SCAN (08/29/2019 12:22 PM METHODS SPECIALIST ENGINEER) Narrative Performed At This result has an attachment that is no t available. ECHOCARDIOGRAM REPORT - SCAN (08/28/2019 9:13 PM METHODS SPECIALIST ENGINEER) Narrative Performed At This result has an attachment that is no t available. 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 Clinical History A-FIB,DM,CKD,CABG X 5 10 YRS AGO, HTN Height: 65 inches Weight: 80.74 kg (178 lbs) BSA: 1.88 m^2 BMI: 29.62 kg/m^2 HR: 85 bpm BP: 217/98 mmHg Procedure Informed Consent NORMA procedure notes Moderate sedation by performing MD using 10 mg IV versed and 100 mcg IV fentanyl. . Signature Findings Rhythm/BPAtrial flutter with controlled ventricular response Left The left ventricle is chamber size (by vol index) is normal. VentricleOverall LV systolic function normal by available views. Left AtriumLA is enlarged but severity assessment is unreliable due to known NORMA sector size limitation. No LA appendage Thrombus visualized. LA appendage velocities are normal range (> 40 cm/s) . RightRV chamber size is mildly enlarged . Global RV systolic Ventriclefunction is normal . Right Atrium RA cavity size is enlarged but severity assessment is unreliable . Atrial Aneurysmal interatrial septum. IV saline contrast injection Septum demostrates a PFO (patent foramen ovale) at rest . Aortic Valve Mild AoV cusp thickening. Mild AoV cusp calcification. Mild aortic stenosis. AoV area by planimtery is in the range of 1.6 cm2. Mild aortic regurgitation. Mitral Valve Mild MV leaflet thickening. No evidence of mitral stenosis. Trace mitral regurgitation. TricuspidMild TV leaflet thickening. No evidence of tricuspid Valvestenosis. Mild tricuspid regurgitation. Estimated peak systolic PA pressure is 30-35 mmHg + RA pressure. (RA pressure indeterminate on this exam) Pulmonic Mild PV leaflet thickening. No evidence of PV stenosis. A Valvetrace of pulmonary regurgitation. AortaAortic root size (SInus of Valsalva diameter) is normal . Proximal ascending aorta size is normal . Grade 2 plaque (extensive intimal thickening) in the descending thoracic aorta . PericardiumNo pericardial effusion is visualized. Chambers/Structures Left Atrium LA Volume: 68.63 ml LA Area: 20.99 cm^2 LA Vol. Index: 37 ml/m^2 Left Ventricle LVEDV Farrell's:59.22 ml LVESV Farrell's:23.7 ml LVEF Farrell's: 60 % LVEDVI: 3 2 ml/m^2 LVESVI: 1 3 ml/m^2 Right Atrium RA Vol. (Sngl Plane): 3 2.06 ml Right Ventricle RV Diast Dim.: 4.45 cm RV Area Systolic: 11.98 cm^2 RV Area Diastolic: 20.84 cm^2 Aorta Ascending Aorta: 3.5 cm Doppler/Quantitative Measurements Aortic Valve Area (2D): 1 .59 cm^2 Tricuspid Valve TR Velocity: 2.86 m/s TR Gradient: 32.65 mmHg Procedure Note Interface, External Ris In - 08/28/2019 6:12 PM METHODS SPECIALIST ENGINEER Transesophageal Echocardiography Report (NORMA) Demographics Patient Name HERNANDEZ, Date of Study 08/25/2019 PENELOPE Gender Male Visit Number [id number] Race Other Room Num gisella OP Number Date of 1945 Young cordero Physician Ruthann Kwok Age 73 year(s) Sonograp her Tigre [facility] serene Jennifer Crowe MD Fellow PHUONG Gordon Procedure Type of Study NORMA procedure:TRANSESOPHAGEAL ECHO Indications:Atrial fibrillation. Clinical History A-FIB,DM,CKD,CABG X 5 10 YRS AGO, HTN Height: 65 inches Weight: 80.74 kg (178 lbs) BSA: 1.88 m^2 BMI: 29.62 kg/m^2 HR: 85 bpm BP: 217/98 mmHg Procedure Informed Consent NORMA procedure notes Moderate sedation by performing MD gricel cordero 10 mg IV versed and 100 mcg IV fentanyl. . Signature Findings Rhythm/BP Atrial flutter with contro lled ventricular response Left The left ventricle is anali gisella size (by vol index) is normal. Ventricle Overall LV systolic functi on normal by available views. Left Atrium LA is enlarged but severit y assessment is unreliable due to known NORMA sector size limi tation. No LA appendage Thrombus visualized. LA appendage v elocities are normal range (>40 cm/s) . Right RV chamber size is mildly enlarged . Global RV systolic Ventricle function is normal . Right Atrium RA cavity size is enlarged but severity assessment is unreliable . Atrial Aneurysmal interatrial sep ovidio. IV saline contrast injection Septum demostrates a PFO (patent foramen ovale) at rest . Aortic Valve Mild AoV cusp thickening. Mild AoV cusp calcification. Mild aortic stenosis. AoV area by planimtery is in the range of 1.6 cm2. Mild aortic regur gitation. Mitral Valve Mild MV leaflet thickening . No evidence of mitral stenosis. Trace mitral regurgitation . Tricuspid Mild TV leaflet thickening . No evidence of tricuspid Valve stenosis. Mild tricuspid r egurgitation. Estimated peak systolic PA pressure is 30 -35 mmHg + RA pressure. (RA pressure indeterminate on this exam) Pulmonic Mild PV leaflet thickening . No evidence of PV stenosis. A Valve trace of pulmonary regurgi tation. Aorta Aortic root size (SInus of Valsalva diameter) is normal . Proximal ascending aorta s ize is normal . Grade 2 plaque (extensive intimal thicken ing) in the descending thoracic aorta . Pericardium No pericardial effusion is visualized. Chambers/Structures Left Atrium LA Volume: 68.63 ml LA Area: 20.99 cm^2 LA Vol. Index: 37 ml/m^2 Left Ventricle LVEDV Farrell's:59.22 ml LVESV Farrell's:23.7 ml LVEF Farrell's: 60 % LVEDVI: 32 ml/m^2 LVESVI: 13 ml/m^2 Right Atrium RA Vol. (Sngl Plane): 32.06 ml Right Ventricle RV Diast Dim.: 4.45 cm RV Area Systolic: 11.98 cm^2 RV Area Diastolic: 20.84 cm^2 Aorta Ascending Aorta: 3.5 cm Doppler/Quantitative Measurements Aortic Valve Area (2D): 1.59 cm^2 Tricuspid Valve TR Velocity: 2.86 m/s TR Gradient: 32.65 mmHg Performing Organization Address City/State/Zipcode Phone Number [facility] after 03/25/2019 Insurance Payer Benefit Plan / Group Subscriber ID Type Phone A ddress MEDICARE MEDICARE A B xxxxxxxxxxx Medicare Advance Directives For more information, please contact:[address] [phone] Code Status Date Activated Date Inactivated Comments Full Code 06/26/2015 10:30 AM 06/26/2015 11:36 AM This code status was determined by: Patient
--- OUTSIDE RECORDS SUMMARY | 2020-03-25 14:00 | XMS REPORT | Clinical Summary ---
:1945 Author Organization [facility] Address [address] [place] [address] Care Team Providers Name Role Phone Asked, No Pcp Primary Care Provider Unavailable Allergies Not on File Medications Not on file Active Problems Not on file Encounters Date Type Specialty Care Team Description 07/12/2019 Hospital Encounter Radiology Alberto Gavin MD M alignant neoplasm of cecum (HCC) 07/12/2019 Lab Lab Alberto Gavin MD Maligna nt neoplasm of cecum (HCC) (Pr imary Dx) 06/07/2019 Transcribe Orders Access Alberto Gavin MD Ma lignant neoplasm of cecum (HCC) (Pr imary Dx) after 03/25/2019 Social History Tobacco Use Types Packs/Day Years Used Date Never Assessed Sex Assigned at Date Recorded Not on file Job Start Date Occupation Industry Not on file Not on file Not on file Travel History Travel Start Travel End No recent travel history available. Last Filed Vital Signs Not on file Plan of Treatment Health Maintenance Due Date Last Done Comments DIABETIC RETINAL EYE EXAM 1945 DIABETIC FOOT EXAM 1953 URINE MICROALBUMIN 1953 COLONOSCOPY SCREENING 1993 SHINGLES VACCINES (#1) 1993 INFLUENZA VACCINE 05/02/2020 65+ PNEUMOCOCCAL VACCINE Completed 11/05/2017, 12/18/2015 Procedures Procedure Name Priority Date/Time Associated Comments Diagnosis CT CHEST WO CONTRAST STAT 07/12/2019 11:41 Malignant neopla sm Results for this ABDOMEN WO CONTRAST AM [facility] of cecum (HCC) proced ure are in PELVIS WO CONTRAST the resul ts section. ESTIMATED GFR STAT 07/12/2019 10:18 Results fo r this AM [facility] procedure are i n the results section. CARCINOEMBRYONIC ANTIGEN STAT 07/12/2019 10:18 Malignant ne oplasm Results for this (CEA) AM [facility] of cecum (HCC) procedure are in the results section. HC COMPLETE BLD COUNT STAT 07/12/2019 10:18 Malignant neopl asm Results for this W/AUTO DIFF AM [facility] of cecum (HCC) procedure are in the results section. COMPREHENSIVE METABOLIC STAT 07/12/2019 10:18 Malignant frederick plasm Results for this PANEL AM [facility] of cecum (HCC) procedure are in the results section. 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 Absence of contrast decreases sensitivity for detection of focal lesions and vascular pathology. CT imaging was performed with iterative reconstruction techniques and/or automated exposure control to reduce rad iation dose. FINDINGS: CHEST: LUNGS and PLEURA: There is a 3 mm right middle lobe nodule (series 3, image 67) which is stable from 2016]. An adjacent 2 mm right middle lobe nodule (series 3, image 65) is new and nonspecific. A couple of tiny clustered nodules in the right lower lob e are new and may reflect some bronchiolitis. Attention on follow-up. There are a few scattered calcified granulomas. There are some mild areas of scarring and atelectasis bilaterally. No cons olidation or effusion. HEART and MEDIASTINUM: Midline sternotomy wires. Pro minent atherosclerotic disease in the thoracic aorta which is nonaneurysmal. The main pulmonary artery is slightly prominent measur ing 3.4 cm. Advanced coronary artery calcifications and moderate global cardiac enlargement, stable. No t horacic adenopathy. ABDOMEN AND PELVIS: HEPATOBILIARY: Subcentimeter hypodense lesion in seg ment 2/3 of the left lobe the liver is too small to characterize. It i s stable from 2016 and may represent a small cyst. Cholecys tectomy. SPLEEN: No splenomegaly. PANCREAS: No focal masses or ductal di lation. ADRENALS: No adrenal nodules. KIDNEYS: Left kidney is markedly atrophic, similar t o prior. 1.7 cm cyst right kidney. GI TRACT: Status post right hemicolectomy. The neote rminal ileum is in the right upper quadrant. There are some left-sided co lonic diverticula without CT evidence of diverticulitis. N o obstruction. PERITONEUM/RETROPERITONEUM: No free ai r or fluid. No lymphadenopathy. VASCULATURE: Prominent atherosclerotic disease of the abdominal aorta which is nonaneurysmal. PELVIC ORGANS/BLADDER: There are couple of large keanu culi within the bladder measuring up to 2.1 cm. Prostate is enlarged m easuring 6.3 cm with some mass effect on the base of the bladder. No p elvic adenopathy or fluid. BONES AND SOFT TISSUES: Degenerative changes in the spine and shoulders. IMPRESSION: 1.Status post right hemicolectomy with neoterminal ile um in the right upper quadrant with expectant postoperat claritza appearance. 2.There is no evidence of recurrent or metastatic dise ase within the chest, abdomen and pelvis. 3.Multiple additional findings as above. OPC-[id number] Procedure Note Hm Interface, Radiology Results Incoming - 07/12/2019 2:32 PM [facility] EXAMINATION: CT CHEST WO CONTRAST ABDOMEN WO CONTRAST PELVIS WO CONTRAST CLINICAL HISTORY: C18.0 Malignant neopl asm of cecum, C18.0 COMPARISON: Priors dating back to 05/27 TECHNIQUE: CT of the chest, abdomen and pelvis without intravenous contrast. Absence of contrast decreases sensitivity for detection of focal lesions and vascular pathology. CT imaging was performed with iterative reconstruction techniques and/or automated exposure control to reduce radiation dose. FINDINGS: CHEST: LUNGS and PLEURA: There is a 3 mm right middle lobe nodule (series 3, image 67) which is stable from 2016]. An adjacent 2 mm right middle lobe nodule (series 3, image 65) is new and nonspecific. A couple of tiny clustered nodules in the right lower lob e are new and may reflect some bronchioli tis. Attention on follow-up. There are a few scattered calcified granulomas. There are some mild areas of scarring and atelectasis bilaterally. No consolidation or effusion. HEART and MEDIASTINUM: Midline sternoto my wires. Prominent atherosclerotic disease in the thoracic aorta which is nonaneurysmal. The main pulmonary artery is slightly prominent measuring 3.4 cm. Advanced coronary artery calcifications and moderate global cardiac enlargement, stable. No t horacic adenopathy. ABDOMEN AND PELVIS: HEPATOBILIARY: Subcentimeter hypodense lesion in segment 2/3 of the left lobe the liver is too small to characterize. It is stable from 2016 and may represent a small cyst. Cholecystectomy. SPLEEN: No splenomegaly. PANCREAS: No focal masses or ductal dil ation. ADRENALS: No adrenal nodules. KIDNEYS: Left kidney is markedly atroph ic, similar to prior. 1.7 cm cyst right kidney. GI TRACT: Status post right hemicolecto my. The neoterminal ileum is in the right upper quadrant. There are some left-sided colonic diverticula without CT evidence of diverticulitis. No obstruction. PERITONEUM/RETROPERITONEUM: No free air or fluid. No lymphadenopathy. VASCULATURE: Prominent atherosclerotic d isease of the abdominal aorta which is nonaneurysmal. PELVIC ORGANS/BLADDER: There are couple of large calculi within the bladder measuring up to 2.1 cm. Prostate is enlarged measuring 6.3 cm with some mass effect on the base of the bladder. No pelvic adenopathy or fluid. BONES AND SOFT TISSUES: Degenerative ch anges in the spine and shoulders. IMPRESSION: 1.Status post right hemicolectomy with n eoterminal ileum in the right upper quadrant with expectant postoperative appearance. 2.There is no evidence of recurrent or m etastatic disease within the chest, abdomen and pelvis. 3.Multiple additional findings as above. [id number] Performing Organization Address City/[facility]/Zipcode Phone Number [facility] [address] [place] [phone] Estimated GFR (07/12/2019 10:18 AM [facility]) Estimated GFR 43 (A) mL/min/1.73 [facility] Comment: HOSPITAL Catergory Units Interpretation G1 >=90 Normal or high G2 60-89 Mildly decreased G3a 45-59 Mildly to moderately decreas ed G3b 30-44 Moderately to severely decre ased G4 15-29 Severely decreased G5 <15 Kidney failure The eGFR was calculated using the Chronic Kidney Disea se Epidemiology Collaboration (CKD-EPI) equation. Interpretation is based on recommendations of the National Kidney Foundation-Kidney Disease Outcomes Ankush lity Initiative (NKF-KDOQI) published in 2014. Specimen Plasma specimen Performing Organization Address City/State/Zipcode Phone Number [facility] DEPARTMENT OF PATHOLOGY AND [address], [place] [address] [facility] MEDICINE [address] [address] CBC with platelet and differential (07/12/2019 10:18 AM [facility]) WBC 7.71 4.50 - 11.00 [facility] k/uL HOSPITAL RBC 5.33 4.40 - 6.00 [facility] m/uL HOSPITAL HGB 14.9 14.0 - 18.0 [facility] g/dL [facility] HCT 48.2 41.0 - 51.0 % [facility] MCV 90.4 82.0 - 100.0 [facility] MCH 28.0 27.0 - 34.0 pg [facility] MCHC 30.9 (L) 31.0 - 37.0 [facility] g/dL [facility] RDW - SD 47.6 37.0 - 55.0 fL [facility] MPV 10.6 8.8 - 13.2 fL [facility] Platelet count 165 150 - 400 k/uL [facility] Nucleated RBC 0.00 /100 WBC [facility] Neutrophils 72.0 (H) 39.0 - 69.0 % [facility] Lymphocytes 18.4 (L) 25.0 - 45.0 % [facility] Monocytes 7.7 0.0 - 10.0 % [facility] Eosinophils 1.2 0.0 - 5.0 % [facility] Basophils 0.3 0.0 - 1.0 % [facility] Immature granulocytes 0.4Comment: 0.0 - 1.0 % [facility] "Immature [facility] granulocytes" (promyelocytes , myelocytes, metamyelocytes ) Specimen Blood Performing Organization Address City/[facility] Phone Number [facility] DEPARTMENT OF PATHOLOGY AND [address] [place] [address] 0 [facility] MEDICINE [address] [address] Carcinoembryonic antigen (CEA) (07/12/2019 10:18 AM [facility]) CEA 4.6 (H) 0.0 - 3.8 [facility] Comment: ng/mL HOSPITAL Reference range for heavy smokers: 0.0 - 5.5 ng/mL The SANDRA Ernestina 8000 CEA immunoassay was used. Results obtained with different assay methods or kits should not be used interchangeably and may be differen t. Specimen Serum Performing Organization Address City/[facility] Phone Number [facility] DEPARTMENT OF PATHOLOGY AND [address] [place], [place] [address] 0 [facility] [address] [place] [phone] Comprehensive metabolic panel (07/12/2019 10:18 AM [facility]) Sodium 140 135 - 148 [facility] mEq/L [facility] Potassium 4.8 3.5 - 5.0 [facility] mEq/[facility] Chloride 103 98 - 112 mEq/L [facility] CO2 28 24 - 31 mEq/L [facility] Anion gap 9@ANIO 7 - 15 mEq/L [facility] BUN 27 (H) 8 - 23 mg/dL [facility] Creatinine 1.55 (H) 0.70 - 1.20 [facility] mg/dL [facility] Glucose 139 (H) 65 - 99 mg/dL [facility] Calcium 9.6 8.8 - 10.2 [facility] mg/dL [facility] Protein 7.3 6.3 - 8.3 g/dL [facility] Comment: HOSPITAL Umaadoj3122.6-7.0 g/dL 1 zuqt1145.4-7.6 g/dL 7 months-4uumh892.1-7.3 g/dL 1-2 uytoc889.6-7.5 g/dL >3 xvnme275.0-8.0 g/dL 18-2974613.3-8.3 g/dL Albumin 3.9 3.5 - 5.0 g/dL [facility] A/G ratio 1.1 0.7 - 3.8 [facility] Alkaline phosphatase 84 40 - 129 U/L [facility] AST 22 10 - 50 U/L [facility] ALT 20 5 - 50 U/L [facility] Total bilirubin 0.7 0.0 - 1.2 [facility] mg/dL [facility] Specimen Plasma specimen Performing Organization Address City/State/Zipcode Phone Number [facility] DEPARTMENT OF PATHOLOGY AND [address], [place] [address] [address] after 03/25/2019 Insurance Payer Benefit Plan / Subscriber ID Effective Dates Phone Addre ss Type Group MEDICARE MEDICARE PART A xxxxxxxxxxx 2008-Present [facility] [place] B Advance Directives For more information, please contact: [phone] Type Date Recorded Patient Manager Community Explanati on Advance Directives, Living Will and Medical Power of Data Modeling Specialist
--- OUTSIDE RECORDS SUMMARY | 2020-03-25 14:01 | XMS REPORT ---
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.9 Active complications Problem Acute gout M10.9 Active Problem Hyperlipidemia E78.5 Active Problem Diabetes type 2, 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 36246709087 400 MG Orally Active 1 tabl et with Twice a day meals Azithromycin [facility] 64417303369 250 MG Orally Mar 21Mar Active 2 tablets on Once a day 2019, the first 2019, then 1 tablet daily for [address] [facility] 93986132738 25 MG Orally Active as dire cted Jublia [facility] 30809231981 10 % Externally Active 1 ap plication Once a day Losartan ND 47904827154 100 MG Orally Active 1 tab let Potassium Once a day Pravachol ND 92797068802 40 MG Orally Active 1 tab let Once a day Xarelto [facility] 15877477780 15 MG Orally Active 1 table t with Once a day food HydrALAZINE HCl [facility] 40468003376 25 MG Orally Active 1 tablet with Three times a food day Benicar [facility] 70834702961 40 MG Orally Active 1 table t Once a day Aspirin Adult [facility] 93388339717 81 MG Orally Active 1 tablet Low Dose Once a day Synthroid [facility] 93165099154 88 MCG Orally Active 1 ta blet in Once a day the morning on an empty stomach Allopurinol [facility] 41662168522 300 MG Orally Active 1 tablet Once a day Hytrin ND 0 Active not defined Tricor [facility] 40710279521 48 MG Orally Active 1 table t Once a day Terazosin HCl [facility] 37511355017 2 MG Orally Active 1 capsule at Once a day bedtime Amiodarone HCl [facility] 81315585050 200 MG Orally Active 1 tablet Once a day Benzonatate [facility] 82966546890 100 MG Orally Mar 23Apr Active 1 capsule as two times a day 2019, needed prn cough [address] [facility] 14111119492 100-33 Active as directed UNT-MCG/ML Subcutaneous Januvia [facility] 38142762201 25 MG Orally Active 1 table t Once a day Results No Known Results Summary Purpose [employer]ClinicalWorks Submission
--- OUTSIDE RECORDS SUMMARY | 2020-03-25 14:01 | XMS REPORT | Continuity of Care Document ---
:1945 Author Organization Formerly [facility] t Address [address] [place] [address] Care Team Providers Name Role Phone Violetteace Barrett Primary Care Physician Sundar Beavers MD Attending Clinician [phone] Stanley Gavin MD Attending Clinician Payers Payer Name Policy Policy Number Effective Expiration Source Type Date Date MEDICAREMEDICARE A xxxxxxxxxxx [facility] [place] [facility] [place] MEDICAREMEDICARE PART A xxxxxxxxxxx 2008 [place] AND 00:00:00 [facility] [place] Problems Condition Condition Condition Status Onset Resolution Last Treating Co mments Source Name Details Category Date Date Treatment Clinician Date Bladder Bladder Problem Active [facility] calculus calculus [facility] detention detention Problem Active [facility] (current) (current) [facility] - use of use of Memoria insulin insulin l [facility] BPH BPH Problem Active [facility] (benign (benign [facility] - prostatic prostatic Dario ana hyperplasi hyperplasi l a) a) [facility] Arterioscl Arterioscl Problem Active [facility] erosis of erosis of Luke s - coronary coronary Memori a artery artery l [facility] Hyperlipid Hyperlipid Problem Active [facility] emia emia [facility] Sexual Sexual Problem Active [facility] dysfunctio dysfunctio Janay kes - n n [facility] Benign Benign Problem Active [facility] essential essential [facility] - HTN HTN [facility] GERD GERD Problem Active [facility] (gastroeso (gastroeso Janay kes - phageal phageal Memoria reflux reflux l disease) disease) [facility]pat i ent Clinics Diabetes Diabetes Problem Active [facility] type 2, no type 2, no Janay kes - ocular ocular Memoria involvemen involvemen l t t [facility] Allergic Allergic Problem Active [facility] rh[facility]initis [facility] Anemia, Anemia, Problem Active [facility] chronic chronic [facility] - disease disease [facility] Chronic Chronic Problem Active [facility] atrial atrial [facility] fibrillati fibrillati Me moria on on l [facility] Acute gout Acute gout Problem Active [facility] Chronic Chronic Problem Active [facility] renal renal [facility] disease disease [facility] Depression Depression Problem Active [facility] with with [facility] anxiety anxiety [facility] Cholelithi Cholelithi Problem Active [facility] ases ases [facility] Nephrolith Nephrolith Problem Active [facility] iasis iasis [facility] Colon Colon Problem Active [facility] cancer cancer [facility] Osteoarthr Osteoarthr Problem Active [facility] itis itis [facility] Allergies, Adverse Reactions, Alerts Allergy Allergy Status Severity Reaction(s) Onset Inactive Treating Comm ents Source Name Type Date Date Clinician Lisinopr Adverse Active Info Not [facility] Reaction Available [facility] Social History Social Habit Start Date Stop Date Quantity Comments Source Sex Assigned At Ovidio Gonzalez Medications Ordered Filled Start Stop Current Ordering Indication Dosage Frequency Signature Comments Components Source Medication Medication Date Date Medication? Clinician (SIG) Name Name Benzonatate Benzonatate 2019- Yes Na Valencia [address] [facility] 03-23 as needed [facility] 00:[facility]: 00:00 [facility] 00 :[facility] Azithromyci Azithromyci 2020-0 2020- Yes Na Valencia [address] [facility] n n 8-03-26 on the [facility] - 00:00: 00:00 first day, Memori a 00 :00 then 1 l tablet Outpati daily for ent 4 days Clinics Otiliaok Letakyree 2020- No Na Valencia 1 [facility] 10[facility] applicatio [facility] - 00:[facility]: 00:00 n [facility]oria 00 :00 l [facility] ent [facility]ics HydrALAZINE HydrALAZINE Yes Na Valencia [address] [facility] HCl HCl with food [facility] Yes Na Valencia [address] [facility]ics Aspirin Aspirin Yes Na Valencia [address] Adult Low Adult Low [facility] - Dose Dose Memoria l [facility]pat[facility] ent Clinics [facility] Yes Na Valencia as [facility] directed [facility] Allopurinol Allopurinol Yes Na Valencia [address] [facility] Losartan Losartan Yes Na Valencia [address] [facility] Potassium Potassium [facility] Hytrin Hytrin Yes Na Valencia not [facility] defined [facility]ics Benicar Benicar Yes Na Valencia [address] [facility] Amiodarone Amiodarone Yes Na Valencia [address] [facility] HCl HCl [facility] Xarelto Xarelto Yes Na Valencia [address] with food [facility] Pravachol Pravachol Yes Na Valencia [address] [facility] Synthroid Synthroid Yes Na Valencia [address] [facility] in the [facility] - morning on Memoria an empty l stomach Outpati ent Clinics Multaq Multaq Yes Na Valencia [address] [facility] with meals [facility] Terazosin Terazosin Yes Na Valencia [address] [facility] HCl HCl at bedtime [facility] Tricor Tricor Yes Na Valencia [address] [facility] Vital Signs Vital Name Observation Time Observation Value Comments Source Systolic blood 2019-08-25 15:25:00 110 mm[Hg] [facility] Diastolic blood 2019-08-25 15:25:00 61 mm[Hg] [facility] Heart rate 2019-08-25 15:25:00 52 /min [facility] Respiratory rate 2019-08-25 15:25:00 18 /min [facility] Oxygen saturation in 2019-08-25 15:25:00 96 /min [facility] Arterial blood by Medical Ce nter Pulse oximetry Procedures Procedure Date / Time Performing Clinician Source Performed RHYTHM STRIP - SCAN 2019-08-29 12:22:11 Provider, Default [facility] ECHOCARDIOGRAM REPORT - 2019-08-28 21:13:14 Provider, Default [facility] TRANSESOPHAGEAL ECHO 2019-08-25 13:53:42 Ruthann [facility] COLOR-FLOW MAPPING 2019-08-25 13:30:28 Ruthann [facility] CARDIOVERSION 2019-08-25 13:30:28 Ruthann [facility] CONT WAVE PULSED DOPPLER 2019-08-25 13:30:27 Ruthann [facility] CT CHEST WO CONTRAST 2019-07-12 11:41:00 Stanley Gavin ABDOMEN WO CONTRAST PELVIS WO CONTRAST COMPREHENSIVE METABOLIC 2019-07-12 10:18:00 Stanley Gavin PANEL HC COMPLETE BLD COUNT 2019-07-12 10:18:00 Stanley Gavin on Confucianist W/AUTO DIFF CARCINOEMBRYONIC ANTIGEN 2019-07-12 10:18:00 Stanley Gavin (CEA) ESTIMATED GFR 2019-07-12 10:18:00 Stanley Gavin Met miguel Plan of Care Planned Activity Planned Date Details Comments Source Future Scheduled 2020-05-02 INFLUENZA VACCINE Guerda Gonzalez Test 00:00:00 [code = INFLUENZA VACCINE] Future Scheduled 1993 COLONOSCOPY SCREENING Faustino Gonzalez Test 00:00:00 [code = COLONOSCOPY SCREENING] Future Scheduled 1993 SHINGLES VACCINES (#1) [place] [facility] Test 00:00:00 [code = SHINGLES VACCINES (#1)] Future Scheduled 1953 DIABETIC FOOT EXAM [place] [facility] Test 00:00:00 [code = DIABETIC FOOT EXAM] Future Scheduled 1955 URINE MICROALBUMIN [place] [facility] Test 00:00:00 [code = URINE MICROALBUMIN] Future Scheduled 1945 DIABETIC RETINAL EYE Ovidio ston Confucianist Test 00:00:00 EXAM [code = DIABETIC RETINAL EYE EXAM] Encounters Start End Encounter Admission Attending Care Care Encounter Source Date/Time Date/Time Type Type Clinicians Facility Department ID 2020-03-23 2020-03-23 [facility] [id number] [facility] 12:42:00 12:42:00 [employer] [facility] 2020-03-21 2020-03-21 [facility] [id number] [facility] 12:00:00 12:00:00 [employer] [facility] Outpati ent Clinics 2020-03-21 2020-03-21 [facility] [id number] [address] 08:39[facility]00 08:39:00 [employer] [facility] 2019-10-04 2019-10-04 [facility] [id number] [address] 10:00:00 10:00:00 [employer] [facility] 2019-07-12 2019-07-12 Outpatient [facility] [id number] [address] [place] [address] 00:00:00 00:00:00 STANLEY [address] Results Test Description Test Test Results Result Source Time Comments Comments Transesophageal FractionSLE [facility] echo 27 ECHO [facility] - Medical 18:12:49 [facility] CPACSInterface, External Ris In - 08/28/2019 6:12 PM CSTTransesophageal Echocardiography Report (NORMA) Demographics Patient Name CULTRERA, Date of Study 08/25/2019 RON Gender Male Visit Number [id number] Race Other Room Number OP Number Date of 1945 Referring Physician Ruthann Kwok Age 73 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 . Signature Findings Rhythm/BP Atrial flutter with controlled ventricular response Left The left ventricle is chamber size (by vol index) is normal. Ventricle Overall LV systolic function normal by available views. Left Atrium LA is enlarged but severity assessment is unreliable due to known NORMA sector size limitation. No LA appendage Thrombus visualized. LA appendage velocities are normal range (>40 cm/s) . Right [...] evidence of mitral stenosis. Trace mitral regurgitation. Tricuspid Mild TV leaflet thickening. No evidence of tricuspid Valve stenosis. Mild tricuspid regurgitation. Estimated peak systolic PA pressure is 30-35 mmHg + RA pressure. (RA pressure indeterminate on this exam) Pulmonic Mild PV leaflet thickening. No evidence of PV stenosis. A Valve trace of pulmonary regurgitation. Aorta Aortic root size (SInus of Valsalva diameter) is normal . Proximal ascending aorta size is normal . Grade 2 plaque (extensive intimal thickening) in the descending thoracic aorta . Pericardium [...] Velocity: 2.86 m/s TR Gradient: 32.[address] Chest 2019-07- [facility] Contrast Abdomen Wo 11 Radiology Results Confucianist Contrast Pelvis Wo 14:29:29 Incoming - 07/12/2019 Contrast 2:32 PM CSTEXAMINATION: CT CHEST WO CONTRAST ABDOMEN WO CONTRAST PELVIS WO CONTRASTCLINICAL HISTORY: C18.0 Malignant neoplasm of cecum, C18.0COMPARISON: Priors dating back to 05/27/2016TECHNIQUE: CT of the chest, abdomen and pelvis without intravenous contrast. Absence of contrast decreases sensitivity for detection of focal lesions and vascular pathology. CT imaging was performed with iterative reconstruction techniques and/or automated exposure control to reduce radiation dose. FINDINGS:CHEST:LUNGS and PLEURA: There is a 3 mm right middle lobe nodule (series 3, image 67) which is stable from 2016]. An adjacent 2 mm right middle lobe nodule (series 3, image 65) is new and nonspecific. A couple of tiny clustered nodules in the right lower lobe are new and may reflect some bronchiolitis. Attention on follow-up. There are a few scattered calcified granulomas. There are some mild areas of scarring and atelectasis bilaterally. No consolidation or effusion.HEART and MEDIASTINUM: Midline sternotomy wires. Prominent atherosclerotic disease in the thoracic aorta which is nonaneurysmal. The main pulmonary artery is slightly prominent measuring 3.4 cm. Advanced coronary artery calcifications and moderate global cardiac enlargement, stable. No thoracic adenopathy.ABDOMEN AND PELVIS:HEPATOBILIARY: Subcentimeter hypodense lesion in segment 2/3 of the left lobe the liver is too small to characterize. It is stable from 2016 and may represent a small cyst. Cholecystectomy.SPLEEN : No splenomegaly.PANCREAS: No focal masses or ductal dilation.ADRENALS: No adrenal nodules.KIDNEYS: Left kidney is markedly atrophic, similar to prior. 1.7 cm cyst right kidney.GI TRACT: Status post right hemicolectomy. The neoterminal ileum is in the right upper quadrant. There are some left-sided colonic diverticula without CT evidence of diverticulitis. No obstruction.PERITONEUM /RETROPERITONEUM: No free air or fluid. No lymphadenopathy.VASCUL ATURE: Prominent atherosclerotic disease of the abdominal aorta which is nonaneurysmal.PELVIC ORGANS/BLADDER: There are couple of large calculi within the bladder measuring up to 2.1 cm. Prostate is enlarged measuring 6.3 cm with some mass effect on the base of the bladder. No pelvic adenopathy or fluid.BONES AND SOFT TISSUES: Degenerative changes in the spine and shoulders.IMPRESSION:1 .Status post right hemicolectomy with neoterminal ileum in the right upper quadrant with expectant postoperative appearance.2.There is no evidence of recurrent or metastatic disease within the chest, abdomen and pelvis.3.Multiple additional findings as above.[id number] Carcinoembryonic antigen (CEA) 2019-07-12 12:30:17 Test Item Value Reference Range Interpretation Comme nts CEA (test code = 2039-6) 4.6 ng/mL 0-3.8 H Ref erence range for heavy smokers: 0.0 - 5.5 ng/m LThe SANDRA Ernestina 8000 CEA immuno assay was used. Results obtaine d with different assay methods o r kits should not be used interch angeably and may be different. Lab Interpretation (test code = Abnormal 24467-3) [place] [facility] [id number] 11:21:51 Test Item Value Reference Range Interpretation Comments Sodium (test code = 140 135- 148 mEq/L 2951-2) Potassium (test code = 4.8 3.5- 5.0 mEq/L 2823-3) Chloride (test code = 103 98- 112 mEq/L 5-0) CO2 (test code = 2027-9) 28 24- 31 mEq/L Anion gap (test code = 9@ANIO 7- 15 mEq/L 00442-3) BUN (test code = 3094-0) 27 mg/dL 8-23 H Creatinine (test code = 1.55 mg/dL 0.7-1.2 H 2160-0) Glucose (test code = 139 mg/dL 65-99 H 2345-7) Calcium (test code = 9.6 mg/dL 8.8-10.2 76925-7) Protein (test code = 7.3 g/dL 6.3-8.3 [place] 9994.6-7.0 2885-2) g/dL1 drvx4325.4-7.6 g/dL7 months-9ykyw930 .1- 7.3 g/dL1-2 ricex109.6-7.5 g/dL>3 wnonh031.0-8.0 g/fQ98-3994050. 3-8 .3 g/dL Albumin (test code = 3.9 g/dL 3.5-5 1751-7) A/G ratio (test code = 1.1 0.7-3.8 1759-0) Alkaline phosphatase 84 U/L 40-129 (test code = 6768-6) AST (test code = 1920-8) 22 U/L 10-50 ALT (test code = 1742-6) 20 U/L 5-50 Total bilirubin (test 0.7 mg/dL 0-1.2 code = 1974-2) Lab Interpretation (test Abnormal code = 50086-4) [place] [facility] [id number] 11:21:50 Test Item Value Reference Range Interpretation Comments Estimated GFR (test 43 mL/min/1.73 m2 Ralph waite Units code = 5488) InterpretationG 1 >=90 Evangelina l or highG2 60-89 Mildly decrease dG3a 45-59 Mil dly to moderately decr cpfuiZ2w 30-44 Moderately to s everely decreasedG4 15-29 Severe ly decreasedG5 <15 Kidney esthela lureThe eGFR was calcul ated using the Chron ic Kidney Disease Epidemiology Collaboration ( CKD-EPI) equation. Interpretation is based on recommendati ons of the National dney [facility]-Kidn ey Disease Outcome s Quality Initiat claritza (NKF-KDOQI) pub lished in 2013. Lab Interpretation Abnormal (test code = 70860-2) Carlos GonzalezCBC with platelet and [id number] 11:05:29 Test Item Value Reference Range Interpretation Comments WBC (test code = 29284-9) 7.71 4.50- 11.00 k/uL RBC (test code = 30509-0) 5.33 m/uL 4.4-6 HGB (test code = 718-7) 14.9 g/dL 14-18 HCT (test code = 4544-3) 48.2 % 41-51 MCV (test code = 787-2) 90.4 fL 82-100 MCH (test code = 785-6) 28.0 pg 27-34 MCHC (test code = 786-4) 30.9 g/dL 31-37 L RDW - SD (test code = 47.6 fL 37-55 74861-6) MPV (test code = 38284-0) 10.6 fL 8.8-13.2 Platelet count (test code 165 150- 400 k/uL = 32066-6) Nucleated RBC (test code 0.00 /100 WBC = 02800-6) Neutrophils (test code = 72.0 % 39-69 H 91455-2) Lymphocytes (test code = 18.4 % 25-45 L 69748-2) Monocytes (test code = 7.7 % 0-10 54428-9) Eosinophils (test code = 1.2 % 0-5 13879-9) Basophils (test code = 0.3 % 0-1 52053-9) Immature granulocytes 0.4 % 0-1 "Immat ure (test code = 55155-6) granul ocytes" (promyelocytes, myelocytes, metamyelocytes) Lab Interpretation (test Abnormal code = 26585-1) Carlos Gonzalez
--- OUTSIDE RECORDS SUMMARY | 2020-03-25 14:01 | XMS REPORT ---
:1945 Author Organization [employer] Care Team Providers Name Role Phone Valencia, Na Provider Role Unavailable Allergies, Adverse Reactions, Alerts Substance Reaction Event Type Lisinopril Info Not Available Drug Allergy Problems Problem Type Condition Code Onset Dates Condition Statu s Problem Benign essential HTN I10 Active Problem Allergic rhinitis J30.9 Active Problem Diabetes E11.9 Active Problem porter head (current) use of insulin Z79.4 Active Problem [...] Problem BPH (benign prostatic hyperplasia) N40.0 Active Assessment Viral URI with cough J06.9 Active Problem Colon cancer C18.9 Active Problem Sexual dysfunction R37 Active Assessment Contact with and (suspected) Z20.828 Active exposure to other viral communicable diseases Problem Osteoarthritis M19.90 Active Problem GERD (gastroesophageal reflux K21.9 Active disease) Medications Medication Code Code Instructions Start End Status Dosage System Date Date Allopurinol [facility] 80048783442 300 MG Orally Active 1 tablet Once a day Soliqua [facility] 65275289216 100-33 Active as directed UNT-MCG/ML Subcutaneous Hytrin ND 0 Active not defined Amiodarone HCl [facility] 26003164072 200 MG Orally Active 1 tablet Once a day Pravachol [facility] 91747505452 40 MG Orally Active 1 tab let Once a day Aspirin Adult [facility] 63539774214 81 MG Orally Active 1 tablet Low Dose Once a day Januvia [facility] 61387131281 25 MG Orally Active as dire cted Benicar [facility] 26104590303 40 MG Orally Active 1 table t Once a day Xarelto [facility] 03696779803 15 MG Orally Active 1 table t with Once a day food Januvia [facility] 42216500237 25 MG Orally Active 1 table t Once a day Terazosin HCl [facility] 01754130127 2 MG Orally Active 1 capsule at Once a day bedtime Multaq [facility] 54659661515 400 MG Orally Active 1 tabl et with Twice a day meals Tricor [facility] 31236885855 48 MG Orally Active 1 table t Once a day Losartan ND 40483306315 100 MG Orally Active 1 tab let Potassium Once a day Jublia [facility] 63987717158 10 % Externally Active 1 ap plication Once a day Synthroid [facility] 90504191807 88 MCG Orally Active 1 ta blet in Once a day the morning on an empty stomach HydrALAZINE HCl [facility] 13817582845 25 MG Orally Active 1 tablet with Three times a food day Azithromycin [facility] 27503684504 250 MG Orally Mar 21Mar Active 2 tablets on Once a day 2019, the first 2019, then 1 tablet daily for 4 days Results No Known Results Summary Purpose eClinicalWorks Submission
--- OUTSIDE RECORDS SUMMARY | 2020-03-25 14:01 | XMS REPORT ---
:1945 Author Organization [employer] Care Team Providers Name Role Phone Valencia, Na Provider Role Unavailable Allergies No Known Allergies Problems Problem Type Condition Code Onset Dates Condition Statu s Problem Benign essential HTN I10 Active Problem Allergic rhinitis J30.9 Active Problem Diabetes E11.9 Active Problem intermediate (current) use of insulin Z79.4 Active Problem [...] GERD (gastroesophageal reflux K21.9 Active disease) Medications No Known Medications Results No Known Results Summary Purpose eClinicalWorks Submission
[2020-03-25] MEDS ORDERED: dexAMETHasone 4 MG/ML VIAL ONE (14:50)
[2020-03-25] MEDS ORDERED: LEVALBUTEROL 0.63 MG/3 ML NEB ONE (14:52)
[2020-03-25] MEDS ORDERED: CEFTRIAXONE/SWI 1gm 1 GM/10 ML SYR ONE (14:53)
[2020-03-25 15:31] LABS: Absolute Lymphocytes (CBC) 0.2 K/uL (0.7-4.9); Basophils % 0.2 % (0-1.3); Lymphocytes % 3.5 % (15.3-44.8); MPV 9.7 fL (7.6-11.3); RBC Red Blood Cell Count 5.02 M/uL (4.33-5.43)
[2020-03-25 15:32] LABS: Protime INR 3.71
[2020-03-25 16:01] LABS: Albumin 3.2 g/dL (3.4-5.0); Bilirubin Direct 0.5 mg/dL (0-0.2); Bilirubin Total 1.2 mg/dL (0.2-1.0); Ferritin 1956.9 ng/mL (26-388); Potassium 4.4 mmol/L (3.5-5.1); Protein, Total 7.7 g/dL (6.4-8.2); Troponin (Emerg Dept Use Only) 0.09 ng/mL (0.0-0.045)
[2020-03-25 16:14] LABS: Blood Morphology Comment NOT SEEN (NOT SEEN); Platelet Estimate DECR; White Blood Cell Scan OK
--- NOTE | 2020-03-25 16:32 | RAD REPORT ---
EXAM DESCRIPTION: Penny Single View03/25/2020 4:24 pm CLINICAL HISTORY: Shortness breath COMPARISON: 1999 FINDINGS: Bilateral patchy lung opacities The heart is moderately enlarged. Postsurgical changes involve the chest. IMPRESSION: Bilateral patchy lung opacities likely pneumonia
--- NOTE | 2020-03-25 16:41 | ER ---
Nurse's Notes [facility] Name: Penelope De Leon Age: 74 yrs Sex: Male : 1945 Arrival Date: 03/25/2020 Time: 13:59 Bed 13 Private MD: Carol Valencia Diagnosis: Pneumonia, unspecified organism Presentation: 03/25 14:13 Chief complaint: Patient states: Tested positive for covid last . Started to ll1 have SOB past two days getting progressively worse. + fever. Coronavirus screen: Client denies travel out of the [place] in the last 14 days. cough unrelated to allergies, difficulty breathing, fatigue, fever, shortness of breath, sore throat, Client presents with at least one sign or symptom that may indicate coronavirus-19. Standard/surgical mask placed on the client. Ebola Screen: Patient denies travel to an Ebola-affected area in the 21 days before illness onset. Initial Sepsis Screen: Does the patient meet any 2 criteria? RR > 20 per min. HR > 90 bpm. Yes. Risk Assessment: Do you want to hurt yourself or someone else? Patient reports no desire to harm self or others. Onset of symptoms was March 22, 2020. 14:13 Method Of Arrival: Ambulatory ll1 14:13 Acuity: FER 2 ll1 16:26 Initial Sepsis Screen: Does the patient have a suspected source of infection? No. jd3 Patient's initial sepsis screen is negative. Triage Assessment: 14:22 Respiratory: Onset: The symptoms/episode began/occurred gradually, the patient has jd3 moderate shortness of breath. Historical: - Allergies: 14:16 NSAIDS; ll1 - PMHx: 14:16 Gout; CAD; Hypertension; Kidney stones; Hyperlipidemia; colon cancer; Diabetes - NIDDM; ll1 Hypothyroidism; Atrial Fib; bypass x6; - PSHx: 14:16 heart bypass; Bowel resection; ll1 - Immunization history:: Adult Immunizations up to date. - Social history:: Smoking status: Patient denies any tobacco usage or history of. Screenin:25 Abuse screen: Denies threats or abuse. Nutritional screening: No deficits noted. jd3 Tuberculosis screening: No symptoms or risk factors identified. Fall Risk Ambulatory Aid- None/Bed Rest/Nurse Assist (0 pts). Gait- Normal/Bed Rest/Wheelchair (0 pts) Mental Status- Oriented to own ability (0 pts). Total Coronado Fall Scale indicates No Risk (0-24 pts). Assessment: 14:33 General: Appears uncomfortable, Behavior is cooperative, appropriate for age. Pain: jd3 Denies pain. Neuro: Level of Consciousness is awake, alert, obeys commands, Oriented to person, place, time, situation. Cardiovascular: Denies chest pain, Capillary refill < 3 seconds Patient's skin is warm and dry. Rhythm is irregular. Respiratory: Reports shortness of breath at rest Airway is patent Respiratory effort is labored, shallow, Respiratory pattern is symmetrical, tachypnea Breath sounds are diminished bilaterally. GI: No signs and/or symptoms were reported involving the gastrointestinal system. : No signs and/or symptoms were reported regarding the genitourinary system. EENT: No signs and/or symptoms were reported regarding the EENT system. Derm: Skin is intact, Skin is dry, Skin is normal, Skin temperature is warm. Musculoskeletal: Circulation, motion, and sensation intact. Range of motion: intact in all extremities. 15:42 Reassessment: No changes from previously documented assessment. Patient and/or family jd3 updated on plan of care and expected duration. Pain level reassessed. pt with continued shortness of breath, provider notified. 16:20 Reassessment: pt finished breathing tx at 1513. O2 sats dropped to 86%, Dr. Headley was jd3 notified and patient was placed on nasal cannula at 5L. O2 sats increased to 95%. 17:44 Reassessment: Patient and/or family updated on plan of care and expected duration. Pain jd3 level reassessed. Patient states symptoms have improved. Neuro: Level of Consciousness is awake, alert, obeys commands, Oriented to person, place, time, situation. Cardiovascular: Capillary refill < 3 seconds Patient's skin is warm and dry. Respiratory: Airway is patent Respiratory effort is even, labored, Respiratory pattern is symmetrical, tachypnea Breath sounds are diminished bilaterally. 19:09 Reassessment: Assumed patient care from TRACEY Conroy. vc 19:19 Reassessment: Patient and/or family updated on plan of care and expected duration. Pain vc level reassessed. Patient states feeling better. Patient states symptoms have improved. 20:00 Reassessment: Patient appears in no apparent distress at this time. Patient and/or vc family updated on plan of care and expected duration. Pain level reassessed. Patient states symptoms have improved. Vital Signs: 14:13 BP 188 / 87; Pulse 93; Resp 26; Temp 99.9; Pulse Ox 84% on R/A; Pain 0/10; ll1 15:45 BP 137 / 65; Pulse 99; Resp 26 S; Pulse Ox 96% on 5 lpm NC; jd3 16:45 BP 142 / 58; Pulse 97; Resp 20 S; Temp 101.1(O); Pulse Ox 97% on 5 lpm NC; jd3 17:45 BP 135 / 71; Pulse 97; Resp 20 S; Pulse Ox 95% on 5 lpm NC; jd3 19:10 BP 131 / 80; Pulse 83; Resp 20; Pulse Ox 100% on R/A; vc 19:17 Temp 98.1(O); vc 20:40 BP 146 / 93; Pulse 97; Resp 21; Pulse Ox 97% on R/A; vc ED Course: 13:59 Patient arrived in ED. mr 14:00 Carol Valencia MD is Private Physician. mr 14:11 Trey Headley MD is Attending Physician. kdr 14:16 Triage completed. ll1 14:16 Arm band placed on Patient placed in an exam room, on a stretcher. ll1 14:22 Patient has correct armband on for positive identification. Bed in low position. Call jd3 light in reach. Side rails up X2. Adult w/ patient. 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 Pulse ox on. NIBP on. 14:33 Donato Alvarado RN is Primary Nurse. jd3 14:33 Inserted saline lock: 20 gauge in right forearm, using aseptic technique. Blood jd3 collected. 16:25 CXR XRAY In Process Unspecified. EDMS 16:40 Dinesh Tse MD is Hospitalizing Provider. kdr 17:11 CT Chest For PE Angio In Process Unspecified. EDMS 22:23 No provider procedures requiring assistance completed. Patient admitted, IV remains in vc place. Administered Medications: 14:34 CANCELLED (Patient Refused): Decadron - Dexamethasone 10 mg IVP once jd3 15:07 Drug: Decadron - Dexamethasone 6 mg Route: IVP; Site: right forearm; jd3 16:00 Follow up: Response: No adverse reaction jd3 19:19 Follow up: Response: No adverse reaction vc 15:08 Drug: Rocephin - (cefTRIAXone) 1 grams Route: IVPB; Infused Over: 30 mins; Site: right jd3 forearm; 16:00 Follow up: Response: No adverse reaction; IV Status: Completed infusion jd3 15:08 Drug: Xopenex (3) 0.63 mg Route: Inhalation; jd3 16:00 Follow up: Response: No adverse reaction jd3 16:54 Drug: NS 0.9% 500 ml Route: IV; Rate: bolus; Site: right forearm; jd3 17:00 Follow up: Response: No adverse reaction; IV Status: Completed infusion jd3 16:55 Drug: Tylenol 1000 mg Route: PO; jd3 19:18 Follow up: Response: Temperature is decreased vc Outcome: 16:40 Decision to Hospitalize by Provider. kdr 22:23 Admitted to ICU accompanied by nurse, accompanied by tech, via stretcher, room 3, with vc oxygen, on monitor, with chart, Report called to TRACEY gasca 22:23 Condition: good 22:23 Instructed on the need for admit. 22:28 Patient left the ED. tt3 Signatures: Dispatcher [employer] EDMS Trye Headley MD MD [facility], Xenia ChristianoDonato RN RN jd3 Calcote, Vanessa, RN RN vc Lewis, Lynsay, RN RN llTed Osborn tt3 Corrections: (The following items were deleted from the chart) 15:46 15:45 BP 137 / 65; Pulse 99bpm; Resp 26bpm; Spontaneous; Pulse Ox 96% RA; jd3 jd3 16:26 16:26 Patient has correct armband on for positive identification. Bed in low position. jd3 Call light in reach. Side rails up X2. Adult w/ patient. 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 Pulse ox on. NIBP on. jd3 jd3 16:43 16:42 Inserted saline lock: 20 gauge in right forearm, using aseptic technique. Blood jd3 collected. jd3 17:56 16:45 BP 142 / 58; Pulse 97bpm; Resp 20bpm; Pulse Ox 97% 5 lpm Nasal Cannula; jd3 jd3
--- NOTE | 2020-03-25 16:41 | EDPHYS ---
Physician Documentation [facility] Name: Penelope De Leon Age: 74 yrs Sex: Male : 1945 Arrival Date: 03/25/2020 Time: 13:59 Bed 13 Private MD: Carol Valencia ED Physician Trey Headley HPI: 03/25 14:34 This 74 yrs old Male presents to ER via Ambulatory with complaints of COVID+, kdr Breathing Difficulty, Cough. 14:34 The patient has shortness of breath at rest, with light activity. Onset: The kdr symptoms/episode began/occurred gradually, 1 week(s) ago. Duration: The symptoms are continuous, and are steadily getting worse. The patient's shortness of breath is aggravated by coughing, eating, exertion, light activity, talking, walking. Associated signs and symptoms: Pertinent positives: productive cough, fever. Severity of symptoms: At their worst the symptoms were moderate severe just prior to arrival, incapacitating in the emergency department the symptoms are unchanged. The patient has not experienced similar symptoms in the past. The patient began to have symptoms last Wednesday () and was swabbed on () and confirmed positive on Wednesday (). The patient continues to be SOB with fevers to 102 and aches all over.. 16:44 Micheal patient was 84% on RA on arrival and with talking and on oxygen, his saturation was kdr no more than 90%. Historical: - Allergies: 14:16 NSAIDS; ll1 - PMHx: 14:16 Gout; CAD; Hypertension; Kidney stones; Hyperlipidemia; colon cancer; Diabetes - NIDDM; ll1 Hypothyroidism; Atrial Fib; bypass x6; - PSHx: 14:16 heart bypass; Bowel resection; ll1 - Immunization history:: Adult Immunizations up to date. - Social history:: Smoking status: Patient denies any tobacco usage or history of. ROS: 14:37 Constitutional: Negative for weight loss - has had fever and chills Eyes: Negative for kdr injury, pain, redness, and discharge, Neck: Negative for injury, pain, and swelling, Cardiovascular: Negative for chest pain, palpitations, and edema, Abdomen/GI: Negative for abdominal pain, nausea, vomiting, diarrhea, and constipation, Back: Negative for injury and pain, : Negative for injury, bleeding, discharge, and swelling, MS/Extremity: Negative for injury and deformity, Skin: Negative for injury, rash, and discoloration, Neuro: Negative for headache, weakness, numbness, tingling, and seizure activity. Psych: Negative for depression, anxiety, suicide ideation, homicidal ideation, and hallucinations, Allergy/Immunology: Negative for hives, rash, and allergies, Endocrine: Negative for neck swelling, polydipsia, polyuria, polyphagia, and marked weight changes, Hematologic/Lymphatic: Negative for swollen nodes, abnormal bleeding, and unusual bruising. 14:37 Respiratory: Positive for cough, with clear sputum, dyspnea on exertion, hemoptysis, shortness of breath, at rest. Exam: 14:39 Constitutional: This is a well developed, well nourished patient who is awake, alert, kdr and in mild to moderate distress. Head/Face: Normocephalic, atraumatic. Eyes: Pupils equal round and reactive to light, extra-ocular motions intact. Lids and lashes normal. Conjunctiva and sclera are non-icteric and not injected. Cornea within normal limits. Periorbital areas with no swelling, redness, or edema. Neck: Trachea midline, no thyromegaly or masses palpated, and no cervical lymphadenopathy. Supple, full range of motion without nuchal rigidity, or vertebral point tenderness. No Meningismus. Chest/axilla: Normal chest wall appearance and motion. Nontender with no deformity. No lesions are appreciated. Respiratory: Lungs have equal breath sounds bilaterally, clear to auscultation and percussion. No rales, rhonchi or wheezes noted. No increased work of breathing, no retractions or nasal flaring. Abdomen/GI: Soft, non-tender, with normal bowel sounds. No distension or tympany. No guarding or rebound. No evidence of tenderness throughout. Back: No spinal tenderness. No costovertebral tenderness. Full range of motion. Skin: Warm, dry with normal turgor. Normal color with no rashes, no lesions, and no evidence of cellulitis. MS/ Extremity: Pulses equal, no cyanosis. Neurovascular intact. Full, normal range of motion. Neuro: Awake and alert, GCS 15, oriented to person, place, time, and situation. Cranial nerves II-XII grossly intact. Motor strength 5/5 in all extremities. Sensory grossly intact. Cerebellar exam normal. Normal gait. Psych: Awake, alert, with orientation to person, place and time. Behavior, mood, and affect are within normal limits. 14:39 Cardiovascular: Rate: normal, Rhythm: irregularly irregular, Pulses: no pulse deficits are appreciated, Heart sounds: normal, Edema: is not appreciated, JVD: is not appreciated. 14:39 ECG was reviewed by the Attending Physician. Vital Signs: 14:13 BP 188 / 87; Pulse 93; Resp 26; Temp 99.9; Pulse Ox 84% on R/A; Pain 0/10; ll1 15:45 BP 137 / 65; Pulse 99; Resp 26 S; Pulse Ox 96% on 5 lpm NC; jd3 16:45 BP 142 / 58; Pulse 97; Resp 20 S; Temp 101.1(O); Pulse Ox 97% on 5 lpm NC; jd3 17:45 BP 135 / 71; Pulse 97; Resp 20 S; Pulse Ox 95% on 5 lpm NC; jd3 19:10 BP 131 / 80; Pulse 83; Resp 20; Pulse Ox 100% on R/A; vc 19:17 Temp 98.1(O); vc 20:40 BP 146 / 93; Pulse 97; Resp 21; Pulse Ox 97% on R/A; vc MDM: 15:35 ED course: The patient will be admitted. kdr 16:40 Patient medically screened. kdr 16:40 Data reviewed: vital signs, nurses notes, lab test result(s), EKG, radiologic studies. kdr Counseling: I had a detailed discussion with the patient and/or guardian regarding: the historical points, exam findings, and any diagnostic results supporting the discharge/admit diagnosis, lab results, radiology results, the need for further work-up and treatment in the hospital. 03/25 14:31 Order name: Blood Culture Adult (2) kdr 03/25 14:31 Order name: BMP; Complete Time: 16:32 kdr 03/25 14:31 Order name: C-Reactive Protein; Complete Time: 16:32 kdr 03/25 14:31 Order name: CBC with Diff; Complete Time: 16:32 kdr 03/25 14:31 Order name: D-Dimer; Complete Time: 16:32 kdr 03/25 14:31 Order name: Ferritin; Complete Time: 16:32 kdr 03/25 14:31 Order name: Flu; Complete Time: 16:32 kdr 03/25 14:31 Order name: Lactate; Complete Time: 16:32 kdr 03/25 14:31 Order name: LFT's; Complete Time: 16:32 kdr 03/25 14:31 Order name: Lipase; Complete Time: 16:32 kdr 03/25 14:31 Order name: Procalcitonin; Complete Time: 16:32 kdr 03/25 14:31 Order name: PT-INR; Complete Time: 16:32 kdr 03/25 14:31 Order name: Ptt, Activated; Complete Time: 16:32 kdr 03/25 14:31 Order name: Troponin (emerg Dept Use Only); Complete Time: 16:32 kdr 03/25 15:42 Order name: CBC Smear Scan; Complete Time: 16:32 EDMS 03/25 17:25 Order name: CBC with Automated Diff EDMS 03/25 17:25 Order name: CBC with Automated Diff EDMS 03/25 17:25 Order name: Comprehensive Metabolic Panel EDMS 03/25 17:25 Order name: Comprehensive Metabolic Panel EDMS 03/25 17:25 Order name: Lactate EDMS 03/25 17:25 Order name: Lactate EDMS 03/25 17:25 Order name: Lipid Profile EDMS 03/25 17:25 Order name: Lipid Profile EDMS 03/25 17:25 Order name: Magnesium EDMS 03/25 17:25 Order name: Magnesium EDMS 03/25 17:25 Order name: NT PRO-BNP EDMS 03/25 17:26 Order name: NT PRO-BNP EDMS 03/25 17:26 Order name: Phosphorus EDMS 03/25 17:26 Order name: Phosphorus EDMS 03/25 17:27 Order name: C-Reactive Protein EDMS 03/25 14:31 Order name: CXR XRAY; Complete Time: 16:43 kdr 03/25 14:31 Order name: EKG; Complete Time: 14:31 kdr 03/25 14:31 Order name: Cardiac monitoring; Complete Time: 15:06 kdr 03/25 14:31 Order name: Document PUI#; Complete Time: 15:06 kdr 03/25 14:31 Order name: Droplet/Contact Precautions; Complete Time: 15: kdr 03/25 14:31 Order name: EKG - Nurse/Tech; Complete Time: 15:06 [facility] 03/25 14:31 Order name: IV Start; Complete Time: 15:06 [facility] 03/25 14:31 Order name: Labs collected and sent; Complete Time: 15:06 [facility] 03/25 14:31 Order name: Notify Health Dept [phone]/ ; Complete Time: 15:06 kdr 03/25 14:31 Order name: O2 Per Protocol; Complete Time: 15:06 [facility] 03/25 14:31 Order name: O2 Sat Monitoring; Complete Time: 15:06 kdr 03/25 14:31 Order name: Urine Dipstick-Ancillary (obtain specimen); Complete Time: 22:20 kdr 03/25 16:38 Order name: CT Chest For PE Angio [facility] 03/25 17:25 Order name: CONS Physician Consult [facility] 03/25 17:25 Order name: Regular [facility] 03/25 17:27 Order name: D-Dimer [facility] 03/25 17:27 Order name: Ferritin [facility] 03/25 17:27 Order name: Lactic Dehydrogenase [facility] 03/25 17:27 Order name: Procalcitonin [facility] 03/25 21:08 Order name: Urine Dipstick-Ancillary [facility] 03/25 21:22 Order name: Urine Dipstick--Ancillary (enter results) tt3 03/25 21:33 Order name: Urine Dipstick-Ancillary EDMI EC:39 Rate is 95 beats/min. Rhythm is irregularly irregular, A fib with No ectopy, Right kdr bundle branch block. QRS Lee is Normal. [place] interval is normal. QRS interval is normal. QT interval is normal. Clinical impression: Atrial Fibrillation. Administered Medications: 14:34 CANCELLED (Patient Refused): Decadron - Dexamethasone 10 mg IVP once jd3 15:07 Drug: Decadron - Dexamethasone 6 mg Route: IVP; Site: right forearm; jd3 16:00 Follow up: Response: No adverse reaction jd3 19:19 Follow up: Response: No adverse reaction vc 15:08 Drug: Rocephin - (cefTRIAXone) 1 grams Route: IVPB; Infused Over: 30 mins; Site: right jd3 forearm; 16:00 Follow up: Response: No adverse reaction; IV Status: Completed infusion jd3 15:08 Drug: Xopenex (3) 0.63 mg Route: Inhalation; jd3 16:00 Follow up: Response: No adverse reaction jd3 16:54 Drug: NS 0.9% 500 ml Route: IV; Rate: bolus; Site: right forearm; jd3 17:00 Follow up: Response: No adverse reaction; IV Status: Completed infusion jd3 16:55 Drug: Tylenol 1000 mg Route: PO; jd3 19:18 Follow up: Response: Temperature is decreased vc Disposition: 03/25/20 16:40 Hospitalization ordered by Dinesh Tse for Inpatient Admission. Preliminary diagnosis is Pneumonia, unspecified organism. - Bed requested for Intensive Care Unit. - Status is Inpatient Admission. tt3 - Condition is Serious. - Problem is an ongoing problem. - Symptoms have improved. Signatures: Dispatcher [employer] EDMS Michaelle Calvert Kevin, MD MD kdr Leigh Morris RN RN cg Donato Alvarado RN RN jMady Amos RN RN ll1 Trim, Ted tt3 Viri Fitzgerald RN vc Corrections: (The following items were deleted from the chart) 14:34 14:32 Decadron - Dexamethasone 10 mg IVP once ordered. kdr jd3 17:27 17:27 Magnesium ordered. EDMS EDMS 17:27 17:27 Phosphorus ordered. EDMI EDMS 18:00 16:40 Hospitalization Ordered by Dinesh Tse MD for Inpatient Admission. Preliminary bd diagnosis is Pneumonia, unspecified organism. Bed requested for Telemetry/MedSurg (Inpatient). Status is Inpatient Admission. Condition is Serious. Problem is an ongoing problem. Symptoms have improved. kdr 19:21 14:31 Velasquez ordered. kdr vc 21:53 18:00 03/25/2020 16:40 Hospitalization Ordered by Dinesh Tse MD for Inpatient cg Admission. Preliminary diagnosis is Pneumonia, unspecified organism. Bed requested for Intensive Care Unit. Status is Inpatient Admission. Condition is Serious. Problem is an ongoing problem. Symptoms have improved. bd 22:28 21:53 03/25/2020 16:40 Hospitalization Ordered by Dinesh Tse MD for Inpatient tt3 Admission. Preliminary diagnosis is Pneumonia, unspecified organism. Bed requested for Intensive Care Unit. Status is Inpatient Admission. Condition is Serious. Problem is an ongoing problem. Symptoms have improved. cg
[2020-03-25] MEDS ORDERED: NA CHLORIDE 0.9% 500 ML ONE (16:58)
[2020-03-25] MEDS ORDERED: ACETAMINOPHEN 500 MG TAB ONE (17:03)
[2020-03-25] MEDS ORDERED: ONDANSETRON 4 MG/2 ML VIAL IV PRN (17:20)
[2020-03-25] MEDS ORDERED: ACETAMINOPHEN 500 MG TAB PO PRN (17:20)
[2020-03-25] MEDS ORDERED: ALBUTEROL INHALER 60 PUFF/8 GM IH PRN (17:20)
[2020-03-25] MEDS ORDERED: D50W 25 GM/50 ML SYRINGE/VIAL IV PRN (17:25)
[2020-03-25] MEDS ORDERED: GLUCAGON 1 MG/VIAL IM PRN (17:25)
--- NOTE | 2020-03-25 17:31 | RAD REPORT ---
EXAM DESCRIPTION: CT - Chest For Pe Angio - 03/25/2020 5:11 pm CLINICAL HISTORY: cough . TECHNIQUE: Dynamically enhanced axial 3 mm thick images of the chest were obtained during administra tion of <100> mL Isovue 370 IV contrast. Coronal and oblique reconstruction images were generated and reviewed. Exam utilizes a protocol for optimal evaluation of pulmonary arterial tree. The creatinine is 2.2. The referring physician wanted to proceed with the IV contrast in order to detect a pulmonar y embolus. Maximum intensity projections 3D imaging was utilized All CT scans are performed using dose optimization technique as appropriate and may include automated exposure control or mA/KV adjustment according to patient size. FINDINGS: A pulmonary embolus is not seen. A thoracic aortic aneurysm is not noted. Small pleural effusions. A pericardial effusion is not seen. Mild to moderate left and [id number] right ground-glass opacities. IMPRESSION: Negative for a pulmonary embolism. Mild to moderate left and [id number] right ground-glass opacities can be seen with Covid pneu monia
[2020-03-25] MEDS ORDERED: clonazePAM 0.5 MG TAB PO SCH (18:00)
[2020-03-25] MEDS: METHYLPREDNISOLONE 125 MG INJ IV SCH ×2 (18:00→23:19)
[2020-03-25] MEDS ORDERED: ATORVASTATIN 10 MG TAB PO SCH (21:00)
[2020-03-25] MEDS ORDERED: PRAVASTATIN PO SCH (21:00)
[2020-03-25 21:08] LABS: Urine Blood TRACE (NEG); Urine Glucose NEGATIVE (NEG); Urine Protein 2+ (NEG); Urine Specific Gravity 1.025 (1.005-1.030)
[2020-03-25 21:33] LABS: Urine Blood NEGATIVE (NEG); Urine Glucose NEGATIVE (NEG); Urine Protein 1+ (NEG); Urine pH 5.5 (5.0-7.0)
[2020-03-25] MEDS: AZITHROMYCIN IV 500 MG in NA CHLORIDE 0.9% 250 ML IVPB SCH (23:10)
[2020-03-25] MEDS: HYDRALAZINE HCL 25 MG TABLET PO SCH (23:15)
[2020-03-25] MEDS: SOTALOL HCL 80 MG TAB PO SCH (23:15)
[2020-03-25] MEDS: CEFTRIAXONE/SWI 1gm 1 GM/10 ML SYR IVP SCH (23:19)
[2020-03-25] MEDS: ENOXAPARIN 100 MG/ML SYR SQ SCH (23:54)
[2020-03-26] MEDS: METHYLPREDNISOLONE 125 MG INJ IV SCH ×4 (05:19→23:54)
[2020-03-26 05:34] LABS: Absolute Lymphocytes (CBC) 0.3 K/uL (0.7-4.9); Basophils % 0.1 % (0-1.3); Hematocrit 39.9 % (39.6-49.0); Lymphocytes % 4.2 % (15.3-44.8); MPV 9.1 fL (7.6-11.3); RBC Red Blood Cell Count 4.63 M/uL (4.33-5.43)
--- NOTE | 2020-03-26 05:50 | P.HP ---
Certification for Inpatient Patient admitted to: Inpatient With expected LOS: >2 Midnights Patient will require the following post-hospital care: None Practitioner: I am a practitioner with admitting privileges, knowledge of patient current condition, hospital course, and medical plan of care. Services: Services provided to patient in accordance with Admission requirements found in Title 42 Section 412.3 of the Code of Federal Regulations Patient History Date of Service: 03/25/20 Reason for admission: COVID-19 PNEUMONIA History of Present Illness: PATIENT IS A 74-YEAR-OLD GENTLEMAN WHO CAME THE HOSPITAL WITH SHORTNESS OF BREATH WITH LIGHT ACTIVITY. PATIENT HAS BEEN DIAGNOSED WITH COVID-19. HIS SYMPTOMS HAVE BEEN GETTING GRADUALLY WORSE. PATIENT CAME INTO THE ER FOR FURTHER EVALUATION. IN THE ER PATIENT HAD CT OF THE CHEST AND CHEST X-RAY WHICH REVEALED DIFFUSE INFILTRATES BILATERALLY. PATIENT IS HYPOXIC AND HIS INFLAMMATORY MARKERS ARE SIGNIFICANTLY ELEVATED. PATIENT WILL BE ADMITTED TO THE HOSPITAL FOR IV ANTIBIOTIC AND IV STEROID THERAPY. PATIENT WILL NEED AGGRESSIVE TREATMENT AT THIS TIME AND HOPEFULLY HE WILL TURN AROUND. WE WILL GET PULMONARY CONSULTATION TO ASSIST IN PATIENT'S CARE. WE WILL ALSO DISCUSS WITH PLASMA FOR PATIENT WELL. Allergies No Known Allergies Allergy (Verified 03/26/20 00:56) Home Medications: Allopurinol 300 mg PO DAILY 03/26/20 Amiodarone HCl [Cordarone Tab] 200 mg PO BID 03/26/20 Benzonatate 100 mg PO BID PRN 03/26/20 Hydralazine [Apresoline] 25 mg PO TID 03/26/20 Insulin Glargine/Lixisenatide [Soliqua 100 Unit-33 Mcg/ml Pen] 60 units SQ DAILY 03/26/20 Levothyroxine Sodium [Euthyrox] 100 mcg PO DAILY 03/26/20 Loratadine [Claritin] 10 mg PO DAILY 03/26/20 Losartan Potassium 100 mg PO DAILY 03/26/20 Pravastatin Sodium 40 mg PO BEDTIME 03/26/20 Rivaroxaban [Xarelto] 15 mg PO BID 03/26/20 Sitagliptin Phosphate [Januvia] 100 mg PO DAILY 03/26/20 Terazosin HCl 2 mg PO BID 03/26/20 - Past Medical/Surgical History Has patient received pneumonia vaccine in the past: No Diabetic: Yes -: DM -: KIDNEY STONES -: HTN -: AFIB -: CAD -: hyperlipidemia -: hypothyroidism -: CABG -: HEART CATH -: TONSILECTOMY -: KIDNEY STONES REMOVED -: bowel resection - Family History Father Family History: Reviewed- Non-Contributory - Social History Smoking Status: Never smoker Alcohol use: No CD- Drugs: No Caffeine use: No Place of Residence: Home Review of Systems 10-point ROS is otherwise unremarkable Physical Examination - Vital Signs Temperature: 98.3 F Blood Pressure: 145/91 Pulse: 65 Respirations: 28 Pulse Ox (%): 91 - Physical Exam General: Alert, In no apparent distress, Oriented x3 HEENT: Atraumatic, PERRLA, Mucous membr. moist/pink, EOMI, Sclerae nonicteric Neck: Supple, 2+ carotid pulse no bruit, No LAD, Without JVD or thyroid abnormality Respiratory: Diminished, Expiratory wheezes Cardiovascular: Regular rate/rhythm, Normal S1 S2, Systolic murmur Gastrointestinal: Normal bowel sounds, Soft and benign, Non-distended, No tenderness Musculoskeletal: No clubbing, No swelling, No tenderness Integumentary: No rashes Neurological: Normal gait, Normal speech, Normal tone, Sensation intact, Cranial nerves 3-12 intact, Normal affect, Abnormal strength Lymphatics: No axilla or inguinal lymphadenopathy - Studies Laboratory Data (last 24 hrs) 03/25/20 14:52: PT 42.7 H, INR 3.71, APTT 40.1 H 03/25/20 14:52: WBC 6.9, Hgb 14.1, Hct 43.0, Plt Count 103 L 03/25/20 14:52: Sodium 133 L, Potassium 4.4, BUN 45 H, Creatinine 2.20 H, Glucose 240 H, Total Bilirubin 1.2 H, AST 70 H, ALT 60, Alkaline Phosphatase 95, Lipase 50 L Microbiology Data (last 24 hrs): 03/25/20 14:54 Nasopharnyx Influenza Type A Antigen Screen - Final 03/25/20 14:54 Nasopharnyx Influenza Type B Antigen Screen - Final Assessment & Plan - Problems (Diagnosis) (1) Pneumonia due to COVID-19 virus Current Visit: Yes Status: Acute (2) Hypoxemia Current Visit: Yes Status: Acute (3) Diabetes mellitus Onset Date: 09/25/14 Current Visit: No Status: Acute - Plan PLAN: 1. CHECK COVID-19 TEST RESULTS 2. IV STEROIDS 3. ZITHROMYCIN 250 MG IVPB DAILY TIMES 24-48 HOURS 4. FULL DOSE LOVENOX THERAPY 5. O2 PER PROTOCOL; HIGH-FLOW OXYGEN/BIPAP IF NECESSARY 6. CHECK LABS INCLUDING FERRITIN, CRP, D-DIMER, LACTIC ACID, LDH, PROCALCITONIN 7. PULMONARY CONSULTATION 8. GI PROPHYLAXIS Discharge Plan: Home Plan to discharge in: Greater than 2 days - Advance Directives Does patient have a Living Will: No Does patient have a Durable POA for Healthcare: No - Code Status/Comfort Care Code Status Assessed: Yes Code Status: Full Code Critical Care: No Time Spent Managing PTS Care (In Minutes): 45
[2020-03-26 05:55] LABS: Albumin 2.7 g/dL (3.4-5.0); Bilirubin Total 0.6 mg/dL (0.2-1.0); Magnesium 2.6 mg/dL (1.8-2.4); Phosphorus 4.7 mg/dL (2.5-4.9); Potassium 4.9 mmol/L (3.5-5.1)
[2020-03-26 06:22] LABS: Troponin I 0.08 ng/mL (0.0-0.045)
[2020-03-26] MEDS ORDERED: PNEUMOCOCCAL VACCINE 0.5 ML IMVAC ONE (08:00)
--- NOTE | 2020-03-26 08:49 | P.CNS ---
Date of Consult: 03/26/20 Chief Complaint: COVID-19 PNEUMONIA History of Present Illness: Patient is 74 years a sense Congolese-speaking only admitted with shortness of breath history of castelan virus infection in became progressively worse hypoxic chest x-ray consistent with castelan virus pneumonia he is currently stable patient is diabetic hypertensive Allergies No Known Allergies Allergy (Verified 03/26/20 00:56) Home Medications: Allopurinol 300 mg PO DAILY 03/26/20 Amiodarone HCl [Cordarone Tab] 200 mg PO BID 03/26/20 Benzonatate 100 mg PO BID PRN 03/26/20 Hydralazine [Apresoline] 25 mg PO TID 03/26/20 Insulin Glargine/Lixisenatide [Soliqua 100 Unit-33 Mcg/ml Pen] 60 units SQ DAILY 03/26/20 Levothyroxine Sodium [Euthyrox] 100 mcg PO DAILY 03/26/20 Loratadine [Claritin] 10 mg PO DAILY 03/26/20 Losartan Potassium 100 mg PO DAILY 03/26/20 Pravastatin Sodium 40 mg PO BEDTIME 03/26/20 Rivaroxaban [Xarelto] 15 mg PO BID 03/26/20 Sitagliptin Phosphate [Januvia] 100 mg PO DAILY 03/26/20 Terazosin HCl 2 mg PO BID 03/26/20 - Past Medical/Surgical History Diabetic: Yes -: DM -: KIDNEY STONES -: HTN -: AFIB -: CAD -: hyperlipidemia -: hypothyroidism -: CABG -: HEART CATH -: TONSILECTOMY -: KIDNEY STONES REMOVED -: bowel resection - Family History Father Family History: Reviewed- Non-Contributory - Social History Alcohol use: No CD- Drugs: No Caffeine use: No Place of Residence: Home Review of Systems General: Weakness Respiratory: Shortness of Breath Physical Examination Temp Pulse Resp BP Pulse Ox 98.3 F 72 24 H 99/83 96 03/26/20 05:50 03/26/20 08:00 03/26/20 08:00 03/26/20 08:00 03/26/20 08:00 Laboratory Data (last 24 hrs) 03/25/20 14:52: PT 42.7 H, INR 3.71, APTT 40.1 H 03/25/20 14:52: WBC 6.9, Hgb 14.1, Hct 43.0, Plt Count 103 L 03/25/20 14:52: Sodium 133 L, Potassium 4.4, BUN 45 H, Creatinine 2.20 H, Glucose 240 H, Total Bilirubin 1.2 H, AST 70 H, ALT 60, Alkaline Phosphatase 95, Lipase 50 L - Problems (1) Pneumonia due to COVID-19 virus Current Visit: Yes Status: Acute Plan: Patient is 74 years of age admitted with pneumonia due to castelan virus does have acute on chronic renal failure no evidence of infection can Dc antibiotics continue with steroids monitor CRP and ferritin levels vital signs are stable he is 90% sat on 6 L once is down to 4 L can be discharged home on prednisone antibiotics not needed
[2020-03-26] MEDS ORDERED: OLMESARTAN MEDOXOMIL 40 MG PO SCH (09:00)
[2020-03-26] MEDS ORDERED: HOME MED 1 EA UNK (Linagliptin [Tradjenta] 5 MG) PO SCH (09:00)
[2020-03-26] MEDS: FENOFIBRATE 48 MG TAB PO SCH (10:01)
[2020-03-26] MEDS: CEFTRIAXONE/SWI 1gm 1 GM/10 ML SYR IVP SCH ×2 (10:02→20:49)
[2020-03-26] MEDS: INSULIN GLARGINE 100 UNITS/ML SQ SCH (10:02)
[2020-03-26] MEDS: AZITHROMYCIN IV 500 MG in NA CHLORIDE 0.9% 250 ML IVPB SCH (10:02)
[2020-03-26] MEDS: THIAMINE 200 MG/2 ML INJ IVP SCH (10:03)
[2020-03-26] MEDS: SOTALOL HCL 80 MG TAB PO SCH ×2 (10:03→20:50)
[2020-03-26] MEDS: VITAMIN D 1000 UNIT TAB PO SCH (10:03)
[2020-03-26] MEDS: VALSARTAN 160 MG TAB PO SCH (10:04)
[2020-03-26] MEDS: HYDRALAZINE HCL 25 MG TABLET PO SCH ×3 (10:04→20:49)
[2020-03-26] MEDS: ASCORBIC ACID 500 MG TABLET PO SCH ×3 (10:04→20:49)
[2020-03-26] MEDS: ASPIRIN 81 MG CHEWABLE TABLET PO SCH (10:05)
--- NOTE | 2020-03-26 10:46 | EKG ---
Test Date: 2020-03-25 Test Time: 14:37:31 [employer]: HOMER MEASUREMENT RESULTS: Intervals: Rate: 95 [place]: QRSD: 156 QT: 396 QTc: 497 [place]: P: [place]: QRS: 192 T: 29 INTERPRETIVE STATEMENTS: Atrial fibrillation Right bundle branch block Possible Lateral infarct, age undetermined Inferior infarct, age undetermined Abnormal ECG Compared to ECG 09/26/2014 06:40:39 Right bundle-branch block now present Myocardial infarct finding now present Sinus bradycardia no longer present Sinus arrhythmia no longer present First degree AV block no longer present Left-axis deviation no longer present ST (T wave) deviation no longer present Possible ischemia no longer present Electronically Signed On 03-26-20 10:43:34 CDT by Quang Perez
[2020-03-26] MEDS: allopurinoL 300 MG TAB PO SCH (11:05)
[2020-03-26] MEDS ORDERED: D50W 25 GM/50 ML SYRINGE/VIAL IV PRN (16:11)
[2020-03-26] MEDS ORDERED: GLUCAGON 1 MG/VIAL IM PRN (16:11)
[2020-03-26] MEDS: INSULIN -REGULAR HUMAN 50 UNIT/0.5 ML ML SQ SCH ×2 (17:24→20:48)
[2020-03-26] MEDS: MELATONIN 3 MG TABLET PO SCH (20:49)
[2020-03-26] MEDS: ATORVASTATIN 40 MG TAB PO SCH (20:49)
[2020-03-26] MEDS: ENOXAPARIN 100 MG/ML SYR SQ SCH (23:08)
[2020-03-27] MEDS: METHYLPREDNISOLONE 125 MG INJ IV SCH ×4 (05:55→23:26)
[2020-03-27] MEDS: INSULIN -REGULAR HUMAN 50 UNIT/0.5 ML ML SQ SCH ×4 (07:30→20:30)
--- NOTE | 2020-03-27 08:01 | P.PN ---
Subjective Date of Service: 03/26/20 Patient is very short of breath. We tried high-flow but he was still tachypneic so we went ahead and started BiPAP support. CT scan with diffuse bilateral infiltrates. Review of Systems 10-point ROS is otherwise unremarkable Physical Examination - Vital Signs Temperature: 97.9 F Blood Pressure: 115/64 Pulse: 72 Respirations: 25 Pulse Ox (%): 93 - Physical Exam General: Alert, In no apparent distress, Oriented x3 Respiratory: Other (Patient tachypneic) Cardiovascular: Regular rate/rhythm, Normal S1 S2 Musculoskeletal: No tenderness Neurological: Sensation intact, Cranial nerves 3-12 intact, Abnormal strength - Studies Medications List Reviewed: Yes Assessment & Plan - Problems (Diagnosis) (1) Pneumonia due to COVID-19 virus Current Visit: Yes Status: Acute (2) Hypoxemia Current Visit: Yes Status: Acute (3) Diabetes mellitus Onset Date: 09/25/14 Current Visit: No Status: Acute - Plan PLAN: 1. TRIED HIGH-FLOW AND HAD TO GO UP TO BIPAP SUPPORT 2. IV STEROIDS 3. PULMONARY RECOMMENDED DC ANTIBIOTICS 4. FULL DOSE LOVENOX THERAPY 5. BIPAP 6. CHECK LABS INCLUDING FERRITIN, CRP, D-DIMER, LACTIC ACID, LDH, PROCALCITONIN 7. PULMONARY CONSULTATION 8. GI PROPHYLAXIS Discharge Plan: Home Plan to discharge in: Greater than 2 days - Advance Directives Does patient have a Living Will: No Does patient have a Durable POA for Healthcare: No - Code Status/Comfort Care Code Status: Full Code Critical Care: No Time Spent Managing PTS Care (In Minutes): 35
[2020-03-27 09:11] LABS: Ferritin 4176.4 ng/mL (26-388); Magnesium 2.7 mg/dL (1.8-2.4); Phosphorus 4.2 mg/dL (2.5-4.9); Potassium 4.6 mmol/L (3.5-5.1)
[2020-03-27] MEDS: AZITHROMYCIN IV 500 MG in NA CHLORIDE 0.9% 250 ML IVPB SCH (10:18)
[2020-03-27] MEDS: CEFTRIAXONE/SWI 1gm 1 GM/10 ML SYR IVP SCH (10:18)
[2020-03-27] MEDS: allopurinoL 300 MG TAB PO SCH (10:19)
[2020-03-27] MEDS: FENOFIBRATE 48 MG TAB PO SCH (10:19)
[2020-03-27] MEDS: THIAMINE 200 MG/2 ML INJ IVP SCH (10:19)
[2020-03-27] MEDS: SOTALOL HCL 80 MG TAB PO SCH ×2 (10:19→20:30)
[2020-03-27] MEDS: ASPIRIN 81 MG CHEWABLE TABLET PO SCH (10:19)
[2020-03-27] MEDS: VALSARTAN 160 MG TAB PO SCH (10:20)
[2020-03-27] MEDS: HYDRALAZINE HCL 25 MG TABLET PO SCH ×3 (10:21→20:31)
[2020-03-27] MEDS: ASCORBIC ACID 500 MG TABLET PO SCH ×3 (10:21→20:31)
[2020-03-27] MEDS: VITAMIN D 1000 UNIT TAB PO SCH (10:21)
[2020-03-27] MEDS: INSULIN GLARGINE 100 UNITS/ML SQ SCH (11:14)
--- NOTE | 2020-03-27 11:44 | P.PN ---
Subjective Date of Service: 03/27/20 Chief Complaint: COVID-19 PNEUMONIA Patient's condition is stable he is requiring BiPAP did non tolerate high-flow oxygen ever he does not appear to be any distress currently on 50% FiO2 Physical Examination - Vital Signs Temperature: 97.9 F Blood Pressure: 133/74 Pulse: 67 Respirations: 25 Pulse Ox (%): 93 - Physical Exam General: Alert, Cooperative - Studies Medications List Reviewed: Yes Assessment & Plan - Problems (Diagnosis) (1) Pneumonia due to COVID-19 virus Current Visit: Yes Status: Acute Plan: Patient admitted with pneumonia due to respiratory failure agree with high doses of steroids patient's CRP is declining still has respiratory distress continue with BiPAP halted with high-flow as tolerated Dc antibiotics renal function is worse agree with full-dose anticoagulation
[2020-03-27] MEDS: ATORVASTATIN 40 MG TAB PO SCH (20:30)
[2020-03-27] MEDS: MELATONIN 3 MG TABLET PO SCH (20:31)
[2020-03-27] MEDS: ENOXAPARIN 100 MG/ML SYR SQ SCH (23:26)
[2020-03-28] MEDS: METHYLPREDNISOLONE 125 MG INJ IV SCH ×4 (05:04→23:31)
[2020-03-28 06:01] LABS: Absolute Lymphocytes (CBC) 0.4 K/uL (0.7-4.9); Hematocrit 38.9 % (39.6-49.0); Lymphocytes % 3.4 % (15.3-44.8); MPV 9.4 fL (7.6-11.3); RBC Red Blood Cell Count 4.53 M/uL (4.33-5.43)
[2020-03-28 06:27] LABS: Bilirubin Total 0.4 mg/dL (0.2-1.0); Phosphorus 5.3 mg/dL (2.5-4.9); Potassium 4.6 mmol/L (3.5-5.1); Protein, Total 6.3 g/dL (6.4-8.2)
[2020-03-28 06:28] LABS: Albumin 2.3 g/dL (3.4-5.0); Ferritin 4310.8 ng/mL (26-388); Magnesium 2.7 mg/dL (1.8-2.4)
[2020-03-28 07:04] LABS: Blood Morphology Comment NOT SEEN (NOT SEEN); Platelet Estimate ADEQ; Platelets, Giant FEW
[2020-03-28] MEDS: INSULIN GLARGINE 100 UNITS/ML SQ SCH (08:07)
[2020-03-28] MEDS: THIAMINE 200 MG/2 ML INJ IVP SCH (08:07)
[2020-03-28] MEDS: VITAMIN D 1000 UNIT TAB PO SCH (08:08)
[2020-03-28] MEDS: SOTALOL HCL 80 MG TAB PO SCH ×2 (08:08→20:17)
[2020-03-28] MEDS: INSULIN -REGULAR HUMAN 50 UNIT/0.5 ML ML SQ SCH ×4 (08:08→21:43)
[2020-03-28] MEDS: VALSARTAN 160 MG TAB PO SCH (08:09)
[2020-03-28] MEDS: FENOFIBRATE 48 MG TAB PO SCH (08:09)
[2020-03-28] MEDS: ASPIRIN 81 MG CHEWABLE TABLET PO SCH (08:09)
[2020-03-28] MEDS: allopurinoL 300 MG TAB PO SCH (08:09)
[2020-03-28] MEDS: ASCORBIC ACID 500 MG TABLET PO SCH ×3 (08:09→20:17)
[2020-03-28] MEDS: HYDRALAZINE HCL 25 MG TABLET PO SCH ×2 (08:09→14:00)
[2020-03-28] MEDS: NA CHLORIDE 0.9% 1,000 ML IV SCH (08:14)
--- NOTE | 2020-03-28 09:12 | P.PN ---
Subjective Date of Service: 03/27/20 Patient is very short of breath. We tried high-flow but he was still tachypneic so we went ahead and started BiPAP support. CT scan with diffuse bilateral infiltrates. Physical Examination - Vital Signs Temperature: 97.5 F Blood Pressure: 127/63 Pulse: 61 Respirations: 20 Pulse Ox (%): 93 - Studies Medications List Reviewed: Yes Assessment & Plan - Problems (Diagnosis) (1) Pneumonia due to COVID-19 virus Current Visit: Yes Status: Acute (2) Hypoxemia Current Visit: Yes Status: Acute (3) Diabetes mellitus Onset Date: 09/25/14 Current Visit: No Status: Acute - Plan PLAN: 1. TRIED HIGH-FLOW AND HAD TO GO UP TO BIPAP SUPPORT 2. IV STEROIDS 3. PULMONARY RECOMMENDED DC ANTIBIOTICS 4. FULL DOSE LOVENOX THERAPY 5. BIPAP 6. CHECK LABS INCLUDING FERRITIN, CRP, D-DIMER, LACTIC ACID, LDH, PROCALCITONIN 7. PULMONARY CONSULTATION 8. GI PROPHYLAXIS - Advance Directives Does patient have a Living Will: No Does patient have a Durable POA for Healthcare: No - Code Status/Comfort Care Code Status: Full Code
[2020-03-28] MEDS: HYDRALAZINE HCL 10 MG TABLET PO SCH (20:17)
[2020-03-28] MEDS: ATORVASTATIN 40 MG TAB PO SCH (20:17)
[2020-03-28] MEDS: MELATONIN 3 MG TABLET PO SCH (20:17)
[2020-03-28] MEDS: ENOXAPARIN 100 MG/ML SYR SQ SCH (23:30)
[2020-03-29] MEDS: NA CHLORIDE 0.9% 1,000 ML IV SCH (02:08)
[2020-03-29 05:50] LABS: Absolute Lymphocytes (CBC) 0.3 K/uL (0.7-4.9); Basophils % 0.3 % (0-1.3); Hematocrit 38.8 % (39.6-49.0); Lymphocytes % 2.1 % (15.3-44.8); MPV 9.3 fL (7.6-11.3); RBC Red Blood Cell Count 4.48 M/uL (4.33-5.43)
[2020-03-29] MEDS: METHYLPREDNISOLONE 125 MG INJ IV SCH ×2 (05:51→17:02)
[2020-03-29 06:01] LABS: Albumin 2.2 g/dL (3.4-5.0); Bilirubin Total 0.4 mg/dL (0.2-1.0); Magnesium 2.9 mg/dL (1.8-2.4); Potassium 4.6 mmol/L (3.5-5.1)
[2020-03-29] MEDS: INSULIN GLARGINE 100 UNITS/ML SQ SCH (08:13)
[2020-03-29] MEDS: INSULIN -REGULAR HUMAN 50 UNIT/0.5 ML ML SQ SCH ×4 (08:14→21:18)
[2020-03-29] MEDS: ASCORBIC ACID 500 MG TABLET PO SCH ×3 (08:15→20:53)
[2020-03-29] MEDS: ASPIRIN 81 MG CHEWABLE TABLET PO SCH (08:15)
[2020-03-29] MEDS: allopurinoL 100 MG TAB PO SCH (08:15)
[2020-03-29] MEDS: THIAMINE 200 MG/2 ML INJ IVP SCH (08:16)
[2020-03-29] MEDS: HYDRALAZINE HCL 10 MG TABLET PO SCH ×3 (08:16→21:00)
[2020-03-29] MEDS: SOTALOL HCL 80 MG TAB PO SCH ×2 (08:16→20:52)
[2020-03-29] MEDS: FENOFIBRATE 48 MG TAB PO SCH (08:17)
[2020-03-29] MEDS: VITAMIN D 1000 UNIT TAB PO SCH (08:18)
--- NOTE | 2020-03-29 10:00 | P.PN ---
Subjective Date of Service: 03/29/20 Chief Complaint: COVID-19 PNEUMONIA Condition stable no change still requiring high concentrations of oxygen renal function is worse Physical Examination - Vital Signs Temperature: 97.2 F Blood Pressure: 126/64 Pulse: 67 Respirations: 22 Pulse Ox (%): 92 - Studies Medications List Reviewed: Yes Assessment & Plan - Problems (Diagnosis) (1) Pneumonia due to COVID-19 virus Current Visit: Yes Status: Acute Plan: Patient admitted with respiratory failure secondary to castelan virus also has acute on chronic renal failure patient's CRP is declining (2) Renal failure (ARF), acute on chronic Current Visit: Yes Status: Acute Plan: Patient has acute on chronic renal failure I suspect is combination of diabetes hypertension I have added some Lasix Consul nephrology renal function is becoming worse renal ultrasound urinary creatinine and sodium Qualifiers: Chronic kidney disease stage: unspecified stage
[2020-03-29] MEDS: FUROSEMIDE 40 MG/4 ML VIAL IV SCH (10:54)
--- NOTE | 2020-03-29 12:17 | RAD REPORT ---
EXAM DESCRIPTION: US - Renal Ultrasound-Complete - 03/29/2020 11:30 am CLINICAL HISTORY: Renal failure COMPARISON: RP EXAM COMPLETE dated 09/25/2014 FINDINGS: The right kidney measures 11.6 x 6.1 x 4.5 cm. The left kidney measures 8.9 x 3.9 x 3.5 c m. Right renal cortical thickness and echogenicity are normal. No right-sided hydronephrosis or mass lesion. Left kidney is atrophic relative to the right with thin cortex and increased cortical echogen icity. No hydronephrosis or mass. Multiple echogenic foci air seen in the bladder with dense posterior acoustic shadowing. These are mo st likely multiple bladder calcifications. These appear to be within the lumen and not within the wal l of the bladder. IMPRESSION: No right kidney abnormality identifiable. Left kidney is atrophic relative to the right and shows evidence for medical renal disease. Cortex is thinned. No left-sided hydronephrosis or mass. Multiple bladder calculi present. Bladder is contracted which somewhat limits assessment.
--- NOTE | 2020-03-29 16:17 | P.CNS ---
Date of Consult: 03/29/20 Reason for Consult: JUAN/ CKD Requesting Physician: Tremayne Brady Chief Complaint: COVID-19 PNEUMONIA History of Present Illness: 74 yo Upper Sorbian male admitted to the [facility] ICU with 1-2 weeks of moderate, progressive dyspnea with associated hypoxia in the setting COVID19. Found to have JUAN/ CKD IV since admission. PATIENT IS A 74-YEAR-OLD GENTLEMAN WHO CAME THE HOSPITAL WITH SHORTNESS OF BREATH WITH LIGHT ACTIVITY. PATIENT HAS BEEN DIAGNOSED WITH COVID-19. HIS SYMPTOMS HAVE BEEN GETTING GRADUALLY WORSE. PATIENT CAME INTO THE ER FOR FURTHER EVALUATION. IN THE ER PATIENT HAD CT OF THE CHEST AND CHEST X-RAY WHICH REVEALED DIFFUSE INFILTRATES BILATERALLY. PATIENT IS HYPOXIC AND HIS INFLAMMATORY MARKERS ARE SIGNIFICANTLY ELEVATED. PATIENT WILL BE ADMITTED TO THE HOSPITAL FOR IV ANTIBIOTIC AND IV STEROID THERAPY. PATIENT WILL NEED AGGRESSIVE TREATMENT AT THIS TIME AND HOPEFULLY HE WILL TURN AROUND. WE WILL GET PULMONARY CONSULTATION TO ASSIST IN PATIENT'S CARE. WE WILL ALSO DISCUSS WITH PLASMA FOR PATIENT WELL. 14:34 This 74 yrs old Male presents to ER via Ambulatory with complaints of COVID+, kdr Breathing Difficulty, Cough. 14:34 The patient has shortness of breath at rest, with light activity. Onset: The kdr symptoms/episode began/occurred gradually, 1 week(s) ago. Duration: The symptoms are continuous, and are steadily getting worse. The patient's shortness of breath is aggravated by coughing, eating, exertion, light activity, talking, walking. Associated signs and symptoms: Pertinent positives: productive cough, fever. Severity of symptoms: At their worst the symptoms were moderate severe just prior to arrival, incapacitating in the emergency department the symptoms are unchanged. The patient has not experienced similar symptoms in the past. The patient began to have symptoms last Wednesday () and was swabbed on () and confirmed positive on Wednesday (). The patient continues to be SOB with fevers to 102 and aches all over.. 16:44 Micheal patient was 84% on RA on arrival and with talking and on oxygen, his saturation was kdr no more than 90%. Allergies No Known Allergies Allergy (Verified 03/26/20 00:56) Home medications list reviewed: Yes Home Medications: Allopurinol 300 mg PO DAILY 03/26/20 Amiodarone HCl [Cordarone Tab] 200 mg PO BID 03/26/20 Benzonatate 100 mg PO BID PRN 03/26/20 Hydralazine [Apresoline] 25 mg PO TID 03/26/20 Insulin Glargine/Lixisenatide [Soliqua 100 Unit-33 Mcg/ml Pen] 60 units SQ DAILY 03/26/20 Levothyroxine Sodium [Euthyrox] 100 mcg PO DAILY 03/26/20 Loratadine [Claritin] 10 mg PO DAILY 03/26/20 Losartan Potassium 100 mg PO DAILY 03/26/20 Pravastatin Sodium 40 mg PO BEDTIME 03/26/20 Rivaroxaban [Xarelto] 15 mg PO BID 03/26/20 Sitagliptin Phosphate [Januvia] 100 mg PO DAILY 03/26/20 Terazosin HCl 2 mg PO BID 03/26/20 - Past Medical/Surgical History Diabetic: Yes -: DM -: KIDNEY STONES -: HTN -: AFIB -: CAD -: hyperlipidemia -: hypothyroidism -: CABG -: HEART CATH -: TONSILECTOMY -: KIDNEY STONES REMOVED -: bowel resection - Family History Father Family History: Reviewed- Non-Contributory - Social History Alcohol use: No CD- Drugs: No Caffeine use: No Place of Residence: Home Review of Systems 10-point ROS is otherwise unremarkable Respiratory: Shortness of Breath Physical Examination Temp Pulse Resp BP Pulse Ox 97.8 F 60 22 H 118/73 92 03/29/20 12:00 03/29/20 14:19 03/29/20 14:19 03/29/20 14:19 03/29/20 14:19 General: In no apparent distress, Cooperative HEENT: Atraumatic Neck: Supple Respiratory: Clear to auscultation bilaterally Cardiovascular: No edema, Regular rate/rhythm Gastrointestinal: Soft and benign, Non-distended Musculoskeletal: No clubbing, No contractures Integumentary: No rashes, No cyanosis Neurological: Normal speech Blood work reviewed in the chart. Imagings Data: EXAM DESCRIPTION: US - Renal Ultrasound-Complete - 03/29/2020 11:30 am CLINICAL HISTORY: Renal failure COMPARISON: RP EXAM COMPLETE dated 09/25/2014 FINDINGS: The right kidney measures 11.6 x 6.1 x 4.5 cm. The left kidney measures 8.9 x 3.9 x 3.5 cm. Right renal cortical thickness and echogenicity are normal. No right-sided hydronephrosis or mass lesion. Left kidney is atrophic relative to the right with thin cortex and increased cortical echogenicity. No hydronephrosis or mass. Multiple echogenic foci air seen in the bladder with dense posterior acoustic shadowing. These are most likely multiple bladder calcifications. These appear to be within the lumen and not within the wall of the bladder. IMPRESSION: No right kidney abnormality identifiable. Left kidney is atrophic relative to the right and shows evidence for medical renal disease. Cortex is thinned. No left-sided hydronephrosis or mass. Multiple bladder calculi present. Bladder is contracted which somewhat limits assessment. EXAM DESCRIPTION: CT - Chest For Pe Angio - 03/25/2020 5:11 pm CLINICAL HISTORY: cough TECHNIQUE: Dynamically enhanced axial 3 mm thick images of the chest were obtained during administration of <100> mL Isovue 370 IV contrast. Coronal and oblique reconstruction images were generated and reviewed. Exam utilizes a protocol for optimal evaluation of pulmonary arterial tree. The creatinine is 2.2. The referring physician wanted to proceed with the IV contrast in order to detect a pulmonary embolus. Maximum intensity projections 3D imaging was utilized All CT scans are performed using dose optimization technique as appropriate and may include automated exposure control or mA/KV adjustment according to patient size. FINDINGS: A pulmonary embolus is not seen. A thoracic aortic aneurysm is not noted. Small pleural effusions. A pericardial effusion is not seen. Mild to moderate left and [id number] right ground-glass opacities. IMPRESSION: Negative for a pulmonary embolism. Mild to moderate left and [id number] right ground-glass opacities can be seen with Covid pneumonia. EXAM DESCRIPTION: [facility] Single View03/25/2020 4:24 pm CLINICAL HISTORY: Shortness breath COMPARISON: 1999 FINDINGS: Bilateral patchy lung opacities The heart is moderately enlarged. Postsurgical changes involve the chest. IMPRESSION: Bilateral patchy lung opacities likely pneumonia Conclusions/Impression: A/ JUAN in the setting of acute illness. Hyponatremia. Hypocalcemia CKD IV with proteinuria HTN with CKD/ CHF. Diastolic CHF, chronic. DM II with CKD. Moderate malnutrition. Nephrolithiasis Acute hyoxic respiratory failure due to COVID19 PNA P/ Continue current POC and Medications. COVID19 Protocol/ Oxygen supplementation. Wean steroid therapy as tolerated. Continue Vitamin D. Stop Hydralazine and Fenofibrate. Increase Lantus. Encourage nutrition. No NSAIDs. AM labs. Daily weight. Thank you kindly for the consultation.
--- NOTE | 2020-03-29 16:38 | P.PN ---
Subjective Date of Service: 03/29/20 Patient is feeling somewhat better. Been able to gradually wean off of high- flow oxygen. Renal function has worsened somewhat. Monitor closely. Patient's not eating and drinking that well. Will continue monitoring closely. Review of Systems 10-point ROS is otherwise unremarkable Physical Examination - Vital Signs Temperature: 97.8 F Blood Pressure: 115/59 Pulse: 63 Respirations: 21 Pulse Ox (%): 93 - Physical Exam General: Alert, In no apparent distress, Oriented x3 Respiratory: Clear to auscultation bilaterally, Normal air movement Cardiovascular: Regular rate/rhythm, Normal S1 S2, No murmurs Gastrointestinal: Normal bowel sounds, Soft and benign, Non-distended, No tenderness Musculoskeletal: No clubbing, No swelling, No tenderness Neurological: Sensation intact, Cranial nerves 3-12 intact - Studies Medications List Reviewed: Yes Assessment & Plan - Problems (Diagnosis) (1) Pneumonia due to COVID-19 virus Current Visit: Yes Status: Acute (2) Hypoxemia Current Visit: Yes Status: Acute (3) Diabetes mellitus Onset Date: 09/25/14 Current Visit: No Status: Acute (4) Acute renal insufficiency Current Visit: Yes Status: Acute - Plan PLAN: 1. ON HIGH-FLOW AND GRADUALLY WEANING OFF-DOWN TO FIO2 0F 75% AT A FLOW RATE OF 35L/MINUTE; OFF BIPAP SUPPORT 2. IV STEROIDS; GRADUALLY WEANED DOWN 3. PULMONARY RECOMMENDED DC ANTIBIOTICS 4. FULL DOSE LOVENOX THERAPY; MAY NEED TO CHANGE TO ELIQUIS WITH RENAL FUNCTION 5. MONITOR INFLAMMATORY MARKERS BELOW AND MONITOR RENAL FUNCTION 6. CHECK LABS INCLUDING FERRITIN, CRP, D-DIMER, LACTIC ACID, LDH, PROCALCITONIN 7. GI PROPHYLAXIS Discharge Plan: Home Plan to discharge in: Greater than 2 days - Advance Directives Does patient have a Living Will: No Does patient have a Durable POA for Healthcare: No - Code Status/Comfort Care Code Status: Full Code Critical Care: No Time Spent Managing PTS Care (In Minutes): 30
--- NOTE | 2020-03-29 16:41 | P.PN ---
Subjective Date of Service: 03/28/20 CLINICALLY APPEARS TO BE DOING SOMEWHAT BETTER. THEY CHANGED HER FROM BIPAP TO HIGH-FLOW AND HE HAS BEEN ABLE TO MAINTAIN HIS OXYGEN SATS TO 95%. CURRENTLY ON A HIGH-FLOW AT 40 L A MIN AT FIO2 OF 90%. Review of Systems 10-point ROS is otherwise unremarkable Physical Examination - Vital Signs Temperature: 97.5 F Blood Pressure: 127/63 Pulse: 61 Respirations: 20 Pulse Ox (%): 93 - Physical Exam General: Alert, In no apparent distress, Oriented x3 Respiratory: Clear to auscultation bilaterally, Normal air movement Cardiovascular: Regular rate/rhythm, Normal S1 S2, No murmurs Gastrointestinal: Normal bowel sounds, Soft and benign, Non-distended, No tenderness Musculoskeletal: No clubbing, No swelling, No tenderness Integumentary: No rashes Neurological: Sensation intact, Cranial nerves 3-12 intact, Normal affect - Studies Medications List Reviewed: Yes Assessment & Plan - Problems (Diagnosis) (1) Pneumonia due to COVID-19 virus Current Visit: Yes Status: Acute (2) Hypoxemia Current Visit: Yes Status: Acute (3) Diabetes mellitus Onset Date: 09/25/14 Current Visit: No Status: Acute - Plan PLAN: 1. PATIENT IS BACK DOWN ON HIGH-FLOW OXYGEN. WAS NOT KEEPING HIS SATS UP ON B IPAP. 2. CONTINUE WITH IV STEROIDS 3. HOLDING ANTIBIOTICS 4. FULL DOSE LOVENOX THERAPY 5. MONITOR RENAL FUNCTION CLOSELY 6. CHECK LABS INCLUDING FERRITIN, CRP, D-DIMER, LACTIC ACID, LDH, PROCALCITONIN 7. PULMONARY CONSULTATION APPRECIATED 8. GI PROPHYLAXIS Discharge Plan: Home Plan to discharge in: Greater than 2 days - Advance Directives Does patient have a Living Will: No Does patient have a Durable POA for Healthcare: No - Code Status/Comfort Care Code Status: Full Code Critical Care: No Time Spent Managing PTS Care (In Minutes): 30
[2020-03-29] MEDS: ATORVASTATIN 40 MG TAB PO SCH (20:53)
[2020-03-29] MEDS: MELATONIN 3 MG TABLET PO SCH (20:54)
[2020-03-30] MEDS: ENOXAPARIN 100 MG/ML SYR SQ SCH (00:08)
[2020-03-30] MEDS: METHYLPREDNISOLONE 125 MG INJ IV SCH ×3 (00:09→16:59)
[2020-03-30 05:30] LABS: Absolute Lymphocytes (CBC) 0.3 K/uL (0.7-4.9); Basophils % 0.1 % (0-1.3); Hematocrit 37.6 % (39.6-49.0); Lymphocytes % 2.4 % (15.3-44.8); MPV 9.2 fL (7.6-11.3)
[2020-03-30 06:35] LABS: C-Reactive Protein 66.5 mg/L (<3.00); Ferritin 2644.1 ng/mL (26-388); Magnesium 2.9 mg/dL (1.8-2.4); Phosphorus 3.1 mg/dL (2.5-4.9); Potassium 4.1 mmol/L (3.5-5.1)
[2020-03-30] MEDS: THIAMINE 200 MG/2 ML INJ IVP SCH (08:11)
[2020-03-30] MEDS: ASPIRIN 81 MG CHEWABLE TABLET PO SCH (08:12)
[2020-03-30] MEDS: VITAMIN D 1000 UNIT TAB PO SCH (08:12)
[2020-03-30] MEDS: allopurinoL 100 MG TAB PO SCH (08:12)
[2020-03-30] MEDS: ASCORBIC ACID 500 MG TABLET PO SCH ×3 (08:12→20:25)
[2020-03-30] MEDS: SOTALOL HCL 80 MG TAB PO SCH ×2 (08:14→20:24)
[2020-03-30] MEDS: INSULIN -REGULAR HUMAN 50 UNIT/0.5 ML ML SQ SCH ×4 (08:14→20:26)
[2020-03-30] MEDS: FUROSEMIDE 40 MG/4 ML VIAL IV SCH (08:14)
[2020-03-30] MEDS ORDERED: INSULIN GLARGINE 100 UNITS/ML SQ SCH (09:00)
--- NOTE | 2020-03-30 11:29 | P.PN ---
Subjective Date of Service: 03/30/20 (Telephone visit) Chief Complaint: COVID-19 PNEUMONIA Condition stable still requiring high concentrations of oxygen renal function is improving patient is constipated Physical Examination - Vital Signs Temperature: 98.6 F Blood Pressure: 167/79 Pulse: 61 Respirations: 16 Pulse Ox (%): 96 - Studies Medications List Reviewed: Yes Assessment & Plan - Problems (Diagnosis) (1) Pneumonia due to COVID-19 virus Current Visit: Yes Status: Acute Plan: Patient admitted with castelan virus pneumonia and ARDS condition stable still requiring high concentrations of oxygen recommend titrate down to 85-90% prone position patient's CRP is declining (2) Renal failure (ARF), acute on chronic Current Visit: Yes Status: Acute Plan: P renal function is improving Qualifiers: Chronic kidney disease stage: unspecified stage
[2020-03-30] MEDS ORDERED: LACTULOSE 20 GM/30 ML UCUP PO PRN (12:30)
--- NOTE | 2020-03-30 12:40 | P.PN ---
Subjective Date of Service: 03/30/20 Chief Complaint: COVID-19 PNEUMONIA Subjective: Improving (Patient on high-flow oxygen.) Physical Examination - Vital Signs Temperature: 98.6 F Blood Pressure: 167/79 Pulse: 61 Respirations: 16 Pulse Ox (%): 96 - Physical Exam General: Alert HEENT: Atraumatic Neck: Supple Respiratory: Other (Patient currently on high-flow oxygen) Cardiovascular: Irregular heart rate/rhythm (AFib rate controlled) Neurological: Normal speech, Normal strength at 5/5 x4 extr, Normal tone, Normal affect - Studies Medications List Reviewed: Yes Assessment & Plan Discharge Plan: Home Plan to discharge in: 48 Hours Physician Review Additional Text: Impression: Bilateral COVID 19 pneumonia with hypoxia Acute on chronic renal disease stage II Diabetes mellitus type 2 insulin-dependent Chronic atrial fibrillation on chronic anti coagulation therapy Hyperlipidemia Hypothyroidism Plan: Bilateral COVID 19 pneumonia with hypoxia: CRP improved. Continue to wean off oxygen. Currently on high-flow oxygen. Case discussed with pulmonology. Pulmonology plans to wean down to nasal cannula today. Continue IV Solu-Medrol. Will adjust Solu-Medrol accordingly based on CRP. Continue supplementation. Patient will likely require home oxygen at discharge. Patient shows sign of improvement. Will provide medication for constipation. Anticipate improvement over the next 48 hr. Acute on chronic renal disease stage II: Patient on IV Lasix. Renal function appears stable. Continue with Nephrology recommendations. Continue off TISH- inhibitor. Diabetes mellitus type 2 insulin-dependent: Will adjust diet. Will continue to adjust basal insulin for better diabetic control. Hopefully this will improve once IV Solu-Medrol can be changed to oral. Chronic atrial fibrillation on chronic anti coagulation therapy: Patient no longer on amiodarone. Patient now on sotalol. Patient on Lovenox. Will likely transition to Eliquis today. Patient previously on Xarelto. Hyperlipidemia: Continue medication Hypothyroidism: Resume home medication Time Spent Managing Pts Care (In Minutes): 55
--- NOTE | 2020-03-30 19:21 | PN ---
Date of Progress Note: 03/30/2020 Subjective: Patient is seen at the bedside. Remains in ICU. Remains on 60% FiO2, 35 L a minute jocelyn w rate. Patient looks well. He is conversating well. Denies any acute complaints. Objective: Vital Signs: Blood pressure 167/69, pulse 61, afebrile. General: Per report taken from nursing crepitations on the right side. No significant edema. Laboratory Data: Chloride 109, BUN 91, creatinine 2.55, glucose 264, calcium 8.3, phosphorus 3.1, ma gnesium 2.9. LDH is 497. CRP is improving. Current Medications: Have been reviewed. Of note, patient is on furosemide 40 mg IV daily since yes terday. Also continue Solu-Medrol 80 mg IV q.8, also on sotalol 40 mg p.o. b.i.d. Impression: 1.Acute kidney injury on chronic kidney disease. 2.COVID-19 pneumonia. 3.Acute hypoxemic respiratory failure. 4.Hyponatremia. 5.Hypocalcemia. Plan: Continue Lasix per Pulmonary. Avoid all NSAIDs, avoid iodinated contrast. We will reinitiate some of patient's antihypertensive therapy once blood pressure trend is noted as stable. Monitor st rict Is and Os, daily weights. SE/MODL Voice ID: [id number] Report ID: [id number]
[2020-03-30] MEDS: ATORVASTATIN 40 MG TAB PO SCH (20:24)
[2020-03-30] MEDS: MELATONIN 3 MG TABLET PO SCH (20:25)
[2020-03-30] MEDS: APIXABAN 2.5 MG TABLET PO SCH (20:26)
[2020-03-31] MEDS: METHYLPREDNISOLONE 125 MG INJ IV SCH ×4 (00:29→16:00)
[2020-03-31] MEDS: LEVOTHYROXINE SOD 0.1 MG TAB PO SCH (07:30)
[2020-03-31] MEDS: APIXABAN 2.5 MG TABLET PO SCH ×2 (07:49→20:18)
[2020-03-31] MEDS: VITAMIN D 1000 UNIT TAB PO SCH (07:56)
[2020-03-31] MEDS: SOTALOL HCL 80 MG TAB PO SCH ×2 (07:57→20:18)
[2020-03-31] MEDS: ASPIRIN 81 MG CHEWABLE TABLET PO SCH (07:57)
[2020-03-31] MEDS: DOCUSATE NA 100 MG CAP PO SCH (07:57)
[2020-03-31] MEDS: allopurinoL 100 MG TAB PO SCH (07:57)
[2020-03-31] MEDS: INSULIN -REGULAR HUMAN 50 UNIT/0.5 ML ML SQ SCH ×4 (08:00→20:21)
[2020-03-31] MEDS: THIAMINE 200 MG/2 ML INJ IVP SCH (08:00)
[2020-03-31] MEDS: FUROSEMIDE 40 MG/4 ML VIAL IV SCH (08:00)
[2020-03-31] MEDS: ASCORBIC ACID 500 MG TABLET PO SCH ×3 (08:01→20:18)
[2020-03-31 08:17] LABS: C-Reactive Protein 45.6 mg/L (<3.00); Ferritin 1880.9 ng/mL (26-388)
[2020-03-31] MEDS: INSULIN GLARGINE 100 UNITS/ML SQ SCH (09:07)
--- NOTE | 2020-03-31 09:21 | P.PN ---
Subjective Date of Service: 03/31/20 Chief Complaint: COVID-19 PNEUMONIA Subjective: Other (Patient is slowly improving. On high-flow oxygen with less Fi02.) Physical Examination - Vital Signs Temperature: 97.6 F Blood Pressure: 132/58 Pulse: 57 Respirations: 16 Pulse Ox (%): 91 - Physical Exam General: Alert, Cooperative HEENT: Atraumatic Neck: Supple Respiratory: Other (Patient currently on high-flow) Cardiovascular: Irregular heart rate/rhythm (AFib rate controlled) Neurological: Normal speech, Normal strength at 5/5 x4 extr, Normal tone, Normal affect - Studies Microbiology Data (last 24 hrs): 03/25/20 14:52 Blood - Blood Aerobic Blood Culture - Final No growth in 5 days. 03/25/20 14:52 Blood - Blood Anaerobic Blood Culture - Final No growth in 5 days. Medications List Reviewed: Yes Assessment & Plan Discharge Plan: Home Plan to discharge in: 24 Hours Physician Review Additional Text: Impression: Bilateral COVID 19 pneumonia with hypoxia Acute on chronic renal disease stage II Diabetes mellitus type 2 insulin-dependent Chronic atrial fibrillation on chronic anti coagulation therapy Hyperlipidemia Hypothyroidism Plan: Bilateral COVID 19 pneumonia with hypoxia: CRP continues to improve. Will decrease Solu-Medrol to 60 mg IV 3 times a day. Continue to wean off high-flow oxygen. Patient currently on 60% FiO2. Will transition to nasal cannula. Anticipate continued improvement. Encourage ambulation. Provide incentive spirometer. Anticipate possible discharge as early as tomorrow. Will discuss further with pulmonology. Patient desires to go home once is able to go home. Acute on chronic renal disease stage II: Patient on IV Lasix. Renal function appears stable. Continue with Nephrology recommendations. Continue off TISH- inhibitor. Diabetes mellitus type 2 insulin-dependent: Diet adjusted. Will continue to adjust basal insulin for better diabetic control. IV Solu-Medrol will be decreased. Chronic atrial fibrillation on chronic anti coagulation therapy: Patient no longer on amiodarone. Patient now on sotalol. Patient now on Eliquis. Rate controlled. Hyperlipidemia: Continue medication Hypothyroidism: Continue medication Time Spent Managing Pts Care (In Minutes): 55
--- NOTE | 2020-03-31 15:52 | PN ---
Date of Progress Note: 03/31/2020 Subjective: The patient is seen in the ICU, sitting upright in the chair, eating his meal. He feels well, conversating appropriately. He remains on high-flow oxygen. No other events reported. Objective: Vital Signs: Blood pressure is 132/58, pulse 57, afebrile. General: No acute distress. Nasal cannula in place. Physical exam deferred. Report taken from [facility] secondary to COVID-19 precautions. Laboratory Data: Reviewed. BUN and creatinine are 73/2.2 respectively, chloride 109, potassium 4. Current Medications: Reviewed. Impression: 1.Acute kidney injury on chronic kidney disease. 2.COVID-19 pneumonia. 3.Acute hypoxemic respiratory failure. 4.Hyponatremia, hypocalcemia. Plan: Mr. De Leon is showing improvement in renal function. He is currently showing evidence of fr ee water deficit. Please encourage p.o. water intake. Avoid NSAIDs. Avoid contrast. Continue COVID-19 management per primary team and we will continue to follow. SE/MODL Voice ID: [id number] Report ID: [id number]
--- NOTE | 2020-03-31 16:38 | P.PN ---
Subjective Date of Service: 03/31/20 (Telephone visit) Chief Complaint: COVID-19 PNEUMONIA Condition stable still hypoxic requiring high concentrations of oxygen although he does improve and move to sitting or prone position otherwise fairly comfortable Physical Examination - Vital Signs Temperature: 97.6 F Blood Pressure: 133/56 Pulse: 62 Respirations: 20 Pulse Ox (%): 94 - Studies Microbiology Data (last 24 hrs): 03/25/20 14:52 Blood - Blood Aerobic Blood Culture - Final No growth in 5 days. 03/25/20 14:52 Blood - Blood Anaerobic Blood Culture - Final No growth in 5 days. Medications List Reviewed: Yes Assessment & Plan - Problems (Diagnosis) (1) Pneumonia due to COVID-19 virus Current Visit: Yes Status: Acute Plan: Admitted with pneumonia due to coronal virus continue titrating O2 saturation down 85-90% inflammatory parameters are improving renal function is also improvi ng continue with steroids (2) Renal failure (ARF), acute on chronic Current Visit: Yes Status: Acute Plan: P renal function is improving Qualifiers: Chronic kidney disease stage: unspecified stage
[2020-03-31] MEDS: ATORVASTATIN 40 MG TAB PO SCH (20:18)
[2020-03-31] MEDS: MELATONIN 3 MG TABLET PO SCH (20:18)
[2020-04-01] MEDS: METHYLPREDNISOLONE 125 MG INJ IV SCH ×3 (00:10→17:14)
--- NOTE | 2020-04-01 01:37 | PN ---
Date of Progress Note: 03/31/2020 Subjective: The patient is seen at the bedside. The patient remains in ICU on high-flow oxygen. He feels he has no acute complaints at this time, states that his dyspnea is improving, however, has no t yet resolved. Objective: Vital Signs: Reviewed. General: Elderly, no acute distress. Remainder of physical exam report taken from nursing. Heart: Regular rate and rhythm. No murmurs, rubs, gallops. Lungs: Scattered crepitations noted. Extremities: Trace edema. Laboratory Data: Reviewed. Impression: 1.Acute kidney injury. 2.COVID-19 pneumonia. 3.Electrolyte imbalance. 4.Acute hypoxemic respiratory failure. Plan: Mr. De Leon has nonoliguric JUAN, which is responding to improvement in sepsis as well as impr ovement in volume status. We will continue Lasix at the current dose. Monitor electrolytes with goa l potassium greater than 4, magnesium greater than 2. SE/MODL Voice ID: [id number] Report ID: [id number]
[2020-04-01 05:44] LABS: C-Reactive Protein 30.3 mg/L (<3.00); Ferritin 1583.3 ng/mL (26-388); Potassium 4.3 mmol/L (3.5-5.1)
[2020-04-01 06:11] VITALS: BMI 32.0
[2020-04-01] MEDS: INSULIN -REGULAR HUMAN 50 UNIT/0.5 ML ML SQ SCH ×4 (08:12→20:18)
[2020-04-01] MEDS: LEVOTHYROXINE SOD 0.1 MG TAB PO SCH (08:12)
[2020-04-01] MEDS: INSULIN GLARGINE 100 UNITS/ML SQ SCH (08:13)
[2020-04-01] MEDS: SOTALOL HCL 80 MG TAB PO SCH ×2 (09:21→20:17)
[2020-04-01] MEDS: DOCUSATE NA 100 MG CAP PO SCH (09:22)
[2020-04-01] MEDS: VITAMIN D 1000 UNIT TAB PO SCH (09:22)
[2020-04-01] MEDS: APIXABAN 2.5 MG TABLET PO SCH ×2 (09:23→20:17)
[2020-04-01] MEDS: allopurinoL 100 MG TAB PO SCH (09:23)
[2020-04-01] MEDS: ASPIRIN 81 MG CHEWABLE TABLET PO SCH (09:23)
[2020-04-01] MEDS: ASCORBIC ACID 500 MG TABLET PO SCH ×3 (09:23→20:17)
[2020-04-01] MEDS: FUROSEMIDE 40 MG/4 ML VIAL IV SCH (09:24)
[2020-04-01] MEDS: THIAMINE 200 MG/2 ML INJ IVP SCH (09:26)
--- NOTE | 2020-04-01 12:46 | P.PN ---
Subjective Date of Service: 04/01/20 (Telephone visit) Chief Complaint: COVID-19 PNEUMONIA No change patient is still requiring high concentrations of oxygen renal function is improving Physical Examination - Vital Signs Temperature: 97.7 F Blood Pressure: 152/69 Pulse: 69 Respirations: 22 Pulse Ox (%): 86 - Studies Medications List Reviewed: Yes Assessment & Plan - Problems (Diagnosis) (1) Pneumonia due to COVID-19 virus Current Visit: Yes Status: Acute Plan: The condition stable continue to titrate O2 down he does experience desaturation is still requiring about 50% of oxygen continue to titrate down to 4 L CRP has declined significantly (2) Renal failure (ARF), acute on chronic Current Visit: Yes Status: Acute Plan: renal function is improving Qualifiers: Acute renal failure type: unspecified Chronic kidney disease stage: unspecified stage Qualified Code(s): N17.9 - Acute kidney failure, unspecified; N18.9 - Chronic kidney disease, unspecified Physician Review Additional Text: Impression: Bilateral COVID 19 pneumonia with hypoxia Acute on chronic renal disease stage II Diabetes mellitus type 2 insulin-dependent Chronic atrial fibrillation on chronic anti coagulation therapy Hyperlipidemia Hypothyroidism Plan: Bilateral COVID 19 pneumonia with hypoxia: CRP continues to improve. Will decrease Solu-Medrol to 60 mg IV 3 times a day. Continue to wean off high-flow oxygen. Patient currently on 60% FiO2. Will transition to nasal cannula. Anticipate continued improvement. Encourage ambulation. Provide incentive spirometer. Anticipate possible discharge as early as tomorrow. Will discuss further with pulmonology. Patient desires to go home once is able to go home. Acute on chronic renal disease stage II: Patient on IV Lasix. Renal function appears stable. Continue with Nephrology recommendations. Continue off TISH-inhibitor. Diabetes mellitus type 2 insulin-dependent: Diet adjusted. Will continue to adjust basal insulin for better diabetic control. IV Solu-Medrol will be decreased. Chronic atrial fibrillation on chronic anti coagulation therapy: Patient no longer on amiodarone. Patient now on sotalol. Patient now on Eliquis. Rate controlled. Hyperlipidemia: Continue medication Hypothyroidism: Continue medication
--- NOTE | 2020-04-01 13:53 | P.PN ---
Subjective Date of Service: 04/01/20 Chief Complaint: COVID-19 PNEUMONIA Subjective: Doing well Physical Examination - Vital Signs Temperature: 97.7 F Blood Pressure: 152/69 Pulse: 69 Respirations: 22 Pulse Ox (%): 86 - Physical Exam General: Alert, Cooperative HEENT: Atraumatic Neck: Supple Respiratory: Other (Still high-flow oxygen.) Cardiovascular: Irregular heart rate/rhythm (AFib rate controlled) Gastrointestinal: Normal bowel sounds Neurological: Normal speech, Normal strength at 5/5 x4 extr, Normal tone, Normal affect - Studies Medications List Reviewed: Yes Assessment & Plan Discharge Plan: Home Plan to discharge in: 72 Hours Physician Review Additional Text: Impression: Bilateral COVID 19 pneumonia with hypoxia Acute on chronic renal disease stage II Diabetes mellitus type 2 insulin-dependent Chronic atrial fibrillation on chronic anti coagulation therapy Hyperlipidemia Hypothyroidism Plan: Bilateral COVID 19 pneumonia with hypoxia: Continue monitor CRP. Case discussed with pulmonology. Continue IV Solu-Medrol. Continue wean off high- flow oxygen. Continue incentive spirometer. Continue ambulation. Anticipate improvement over the next 48-72 hr. Will need to get diabetes under control. Will adjust insulin therapy. Acute on chronic renal disease stage II: Patient on IV Lasix. Renal function appears stable. Continue with Nephrology recommendations. Continue off TISH- inhibitor. Diabetes mellitus type 2 insulin-dependent: Diet adjusted. Will continue to adjust basal insulin for better diabetic control. IV Solu-Medrol will be decreased. Chronic atrial fibrillation on chronic anti coagulation therapy: Patient no longer on amiodarone. Patient now on sotalol. Patient now on Eliquis. Rate controlled. Hyperlipidemia: Continue medication Hypothyroidism: Continue medication Time Spent Managing Pts Care (In Minutes): 55
--- NOTE | 2020-04-01 20:01 | P.PN ---
Date of Service: 04/01/20 Vital Signs Temp Pulse Resp BP Pulse Ox 97.7 F 64 18 185/75 H 93 04/01/20 13:53 04/01/20 19:00 04/01/20 19:00 04/01/20 19:00 04/01/20 18:00 Medications Acetaminophen (Tylenol -Extra Strength) 500 mg PO Q4HP PRN PRN Reason: pain/fever Stop: 04/24/20 17:21 Allopurinol (Zyloprim) 100 mg PO DAILY JEREMÍAS Stop: 04/28/20 09:01 Last Admin: 04/01/20 09:23 Dose: 100 mg Documented by: Apixaban (Eliquis) 2.5 mg PO BID JEREMÍAS Stop: 04/29/20 21:01 Last Admin: 04/01/20 09:23 Dose: 2.5 mg Documented by: Ascorbic Acid (Vitamin C) 500 mg PO TID JEREMÍAS Stop: 04/25/20 09:01 Last Admin: 04/01/20 14:45 Dose: 500 mg Documented by: Aspirin (Aspirin Chewable) 81 mg PO DAILY JEREMÍAS Stop: 04/25/20 09:01 Last Admin: 04/01/20 09:23 Dose: 81 mg Documented by: Atorvastatin Calcium (Lipitor) 40 mg PO BEDTIME JEREMÍAS Stop: 04/25/20 21:01 Last Admin: 03/31/20 20:18 Dose: 40 mg Documented by: Cholecalciferol (Vitamin D 1000 Iu Tab) 2,000 unit PO DAILY JEREMÍAS Stop: 04/25/20 09:01 Last Admin: 04/01/20 09:22 Dose: 2,000 unit Documented by: Clonazepam (Klonopin) 0.5 mg PO Q8HP JEREMÍAS Stop: 04/24/20 18:01 Dextrose (Dextrose 50% Syringe/Vial) 12.5 gm IV PRN PRN; Protocol PRN Reason: HYPOGLYCEMIA Stop: 04/25/20 16:12 Docusate Sodium (Colace Cap) 100 mg PO DAILY JEREMÍAS Stop: 04/30/20 09:01 Last Admin: 04/01/20 09:22 Dose: 100 mg Documented by: Furosemide (Lasix) 40 mg IV DAILY JEREMÍAS Stop: 04/28/20 09:01 Last Admin: 04/01/20 09:24 Dose: 40 mg Documented by: Glucagon (Glucagen) 1 mg IM 1X PRN; Protocol PRN Reason: HYPOGLYCEMIA Stop: 04/25/20 16:12 Insulin Glargine (Lantus) 35 units SQ DAILY JEREMÍAS Stop: 05/02/20 09:01 Insulin Human Regular (Novolin -R) 0 unit SQ ACHS JEREMÍAS; Protocol Stop: 04/25/20 16:31 Last Admin: 04/01/20 17:13 Dose: 9 unit Documented by: Lactulose (Cephulac) 10 gm PO BID PRN PRN Reason: CONSTIPATION Stop: 04/29/20 12:31 Levothyroxine Sodium (Synthroid) 0.1 mg PO DAILYAC JEREMÍAS Stop: 05/02/20 06:31 Melatonin (Melatonin) 3 mg PO BEDTIME JEREMÍAS Stop: 04/25/20 21:01 Last Admin: 03/31/20 20:18 Dose: 3 mg Documented by: Methylprednisolone Sodium Succinate (Solu-Medrol) 60 mg IV Q8HR JEREMÍAS Stop: 04/30/20 10:01 Last Admin: 04/01/20 17:14 Dose: 60 mg Documented by: Ondansetron HCl (Zofran) 4 mg IV Q6HP PRN PRN Reason: NAUSEA / VOMITING Stop: 04/24/20 17:21 Sodium Chloride (Normal Saline Flush) 10 ml IV BID [facility] Stop: 04/24/20 21:01 Last Admin: 04/01/20 09:25 Dose: 10 ml Documented by: Sotalol HCl (Betapace) 40 mg PO BID JEREMÍAS Stop: 04/24/20 21:01 Last Admin: 04/01/20 09:21 Dose: 40 mg Documented by: Thiamine HCl (Vitamin B-1) 100 mg IVP DAILY JEREMÍAS Stop: 04/25/20 09:01 Last Admin: 04/01/20 09:26 Dose: 100 mg Documented by: Microbiology Results 03/25/20 14:52 Blood - Blood Aerobic Blood Culture - Final No growth in 5 days. 03/25/20 14:52 Blood - Blood Anaerobic Blood Culture - Final No growth in 5 days. 03/25/20 14:54 Nasopharnyx Influenza Type A Antigen Screen - Final 03/25/20 14:54 Nasopharnyx Influenza Type B Antigen Screen - Final Assessment/ Plan: Nephrology CPS improving without CP. +SOB Feeling a little better. Still requiring Oxygen. Blood in sputum. No acute events overnight. Vitals, medications, blood work and imaging reviewed in the chart. General: In no apparent distress, Cooperative HEENT: Atraumatic Neck: Supple Respiratory: Clear to auscultation bilaterally Cardiovascular: No edema, Regular rate/rhythm Gastrointestinal: Soft and benign, Non-distended Musculoskeletal: No clubbing, No contractures Integumentary: No rashes, No cyanosis Neurological: Normal speech Blood work reviewed in the chart. Imagings Data: EXAM DESCRIPTION: US - Renal Ultrasound-Complete - 03/29/2020 11:30 am CLINICAL HISTORY: Renal failure COMPARISON: RP EXAM COMPLETE dated 09/25/2014 FINDINGS: The right kidney measures 11.6 x 6.1 x 4.5 cm. The left kidney measures 8.9 x 3.9 x 3.5 cm. Right renal cortical thickness and echogenicity are normal. No right-sided hydronephrosis or mass lesion. Left kidney is atrophic relative to the right with thin cortex and increased cortical echogenicity. No hydronephrosis or mass. Multiple echogenic foci air seen in the bladder with dense posterior acoustic shadowing. These are most likely multiple bladder calcifications. These appear to be within the lumen and not within the wall of the bladder. IMPRESSION: No right kidney abnormality identifiable. Left kidney is atrophic relative to the right and shows evidence for medical renal disease. Cortex is thinned. No left-sided hydronephrosis or mass. Multiple bladder calculi present. Bladder is contracted which somewhat limits assessment. EXAM DESCRIPTION: CT - Chest For Pe Angio - 03/25/2020 5:11 pm CLINICAL HISTORY: cough TECHNIQUE: Dynamically enhanced axial 3 mm thick images of the chest were obtained during administration of <100> mL Isovue 370 IV contrast. Coronal and oblique reconstruction images were generated and reviewed. Exam utilizes a protocol for optimal evaluation of pulmonary arterial tree. The creatinine is 2.2. The referring physician wanted to proceed with the IV contrast in order to detect a pulmonary embolus. Maximum intensity projections 3D imaging was utilized All CT scans are performed using dose optimization technique as appropriate and may include automated exposure control or mA/KV adjustment according to patient size. FINDINGS: A pulmonary embolus is not seen. A thoracic aortic aneurysm is not noted. Small pleural effusions. A pericardial effusion is not seen. Mild to moderate left and [id number] right ground-glass opacities. IMPRESSION: Negative for a pulmonary embolism. Mild to moderate left and [id number]-[id number] right ground-glass opacities can be seen with Covid pneumonia. EXAM DESCRIPTION: Penny Single View03/25/2020 4:24 pm CLINICAL HISTORY: Shortness breath COMPARISON: 1999 FINDINGS: Bilateral patchy lung opacities The heart is moderately enlarged. Postsurgical changes involve the chest. IMPRESSION: Bilateral patchy lung opacities likely pneumonia Conclusions/Impression: A/ JUAN in the setting of acute illness. Hyponatremia. Hypocalcemia CKD IV with proteinuria HTN with CKD/ CHF. Diastolic CHF, chronic. DM II with CKD. Moderate malnutrition. Nephrolithiasis Acute hyoxic respiratory failure due to COVID19 PNA P/ Continue current POC and Medications. COVID19 Protocol/ Oxygen supplementation. Wean steroid therapy as tolerated. Give Metolazone. Continue Vitamin D. Increase Lantus prn. Encourage nutrition. No NSAIDs. AM labs. Daily weight.
[2020-04-01] MEDS: ATORVASTATIN 40 MG TAB PO SCH (20:17)
[2020-04-01] MEDS: MELATONIN 3 MG TABLET PO SCH (20:17)
[2020-04-01] MEDS: METOLAZONE 5 MG TABLET PO SCH (20:27)
[2020-04-02] MEDS: METHYLPREDNISOLONE 125 MG INJ IV SCH ×3 (01:01→21:19)
[2020-04-02 05:43] LABS: C-Reactive Protein 22.4 mg/L (<3.00); Ferritin 1284.8 ng/mL (26-388); Potassium 3.6 mmol/L (3.5-5.1)
[2020-04-02] MEDS: LEVOTHYROXINE SOD 0.1 MG TAB PO SCH (05:45)
--- NOTE | 2020-04-02 06:57 | RAD REPORT ---
EXAM DESCRIPTION: RAD - Chest Single View - 04/02/2020 6:29 am CLINICAL HISTORY: Pneumonia, shortness of breath, positive COVID test COMPARISON: CT chest March 25, portable chest March 25 TECHNIQUE: AP portable chest image was obtained 04/02/2020 6:29 am . FINDINGS: Bilateral airspace opacification is present. Superior aspect of each upper lobe worse in a ppearance from March 25. Right lung base also shows progression. Heart and vasculature are normal. N o measurable pleural effusion and no pneumothorax. No acute bony abnormality seen. No acute aortic fi ndings suspected. IMPRESSION: Worsening bilateral pneumonia pattern since March 25.
[2020-04-02] MEDS: INSULIN -REGULAR HUMAN 50 UNIT/0.5 ML ML SQ SCH ×4 (08:06→21:21)
[2020-04-02] MEDS: FUROSEMIDE 40 MG/4 ML VIAL IV SCH (08:07)
[2020-04-02] MEDS: THIAMINE 200 MG/2 ML INJ IVP SCH (08:07)
[2020-04-02] MEDS: VITAMIN D 1000 UNIT TAB PO SCH (08:08)
[2020-04-02] MEDS: APIXABAN 2.5 MG TABLET PO SCH (08:08)
[2020-04-02] MEDS: ASCORBIC ACID 500 MG TABLET PO SCH ×3 (08:08→21:23)
[2020-04-02] MEDS: ASPIRIN 81 MG CHEWABLE TABLET PO SCH (08:08)
[2020-04-02] MEDS: SOTALOL HCL 80 MG TAB PO SCH ×2 (08:08→21:20)
[2020-04-02] MEDS: allopurinoL 100 MG TAB PO SCH (08:08)
[2020-04-02] MEDS: DOCUSATE NA 100 MG CAP PO SCH (08:08)
[2020-04-02] MEDS ORDERED: INSULIN GLARGINE 100 UNITS/ML SQ SCH (09:00)
--- NOTE | 2020-04-02 11:45 | P.PN ---
Subjective Date of Service: 04/02/20 Chief Complaint: COVID-19 PNEUMONIA patient is hypoxic requiring significant concentration of oxygen improving steadily Physical Examination - Vital Signs Temperature: 97.1 F Blood Pressure: 146/78 Pulse: 58 Respirations: 15 Pulse Ox (%): 92 - Physical Exam General: Alert, Cooperative - Studies Medications List Reviewed: Yes Assessment & Plan - Problems (Diagnosis) (1) Pneumonia due to COVID-19 virus Current Visit: Yes Status: Acute Plan: Patient is doing better he is on 50% oxygen high-flow nasal cannula CRP is not less than 50 white count is mildly elevated increase the dose of Eliquis 2 5 mg twice a day change Solu-Medrol to 80 b.i.d. (2) Renal failure (ARF), acute on chronic Current Visit: Yes Status: Acute Plan: Renal function is steadily improving Qualifiers: Acute renal failure type: unspecified Chronic kidney disease stage: unspecified stage Qualified Code(s): N17.9 - Acute kidney failure, unspecified; N18.9 - Chronic kidney disease, unspecified
--- NOTE | 2020-04-02 12:06 | P.PN ---
Subjective Date of Service: 04/02/20 Chief Complaint: COVID-19 PNEUMONIA Subjective: Doing well Physical Examination - Vital Signs Temperature: 97.1 F Blood Pressure: 146/78 Pulse: 58 Respirations: 15 Pulse Ox (%): 92 - Physical Exam General: Alert, Cooperative HEENT: Atraumatic Neck: Supple Respiratory: Other (Patient on high-flow oxygen ) Cardiovascular: Normal pulses, Regular rate/rhythm Neurological: Normal speech, Normal strength at 5/5 x4 extr, Normal tone, Normal affect - Studies Medications List Reviewed: Yes Assessment & Plan Discharge Plan: Home Plan to discharge in: 48 Hours Physician Review Additional Text: Impression: Bilateral COVID 19 pneumonia with hypoxia Acute on chronic renal disease stage II Diabetes mellitus type 2 insulin-dependent Chronic atrial fibrillation on chronic anti coagulation therapy Hyperlipidemia Hypothyroidism Plan: Bilateral COVID 19 pneumonia with hypoxia: CRP continues to improve. Patient still requiring high-flow oxygen. Continue to wean off high-flow to nasal cannula. Continue incentive spirometer. Encourage ambulation. Will need to get diabetes better controlled. Basal insulin adjusted. Anticipate improvement over the next 48 hr. Acute on chronic renal disease stage II: Patient on IV Lasix. Renal function appears stable. Continue with Nephrology recommendations. Continue off TISH- inhibitor. Diabetes mellitus type 2 insulin-dependent: Diet adjusted. Continue to adjust basal insulin for better control. Chronic atrial fibrillation on chronic anti coagulation therapy: Patient no longer on amiodarone. Patient now on sotalol. Patient now on Eliquis. Rate controlled. Hyperlipidemia: Continue medication Hypothyroidism: Continue medication Time Spent Managing Pts Care (In Minutes): 55
[2020-04-02] MEDS: METOLAZONE 5 MG TABLET PO SCH (20:30)
--- NOTE | 2020-04-02 21:17 | P.PN ---
Date of Service: 04/02/20 Vital Signs Temp Pulse Resp BP Pulse Ox 98.4 F 60 16 152/80 H 94 04/02/20 20:00 04/02/20 20:00 04/02/20 20:00 04/02/20 20:00 04/02/20 20:00 Medications Acetaminophen (Tylenol -Extra Strength) 500 mg PO Q4HP PRN PRN Reason: pain/fever Stop: 04/24/20 17:21 Allopurinol (Zyloprim) 100 mg PO DAILY JEREMÍAS Stop: 04/28/20 09:01 Last Admin: 04/02/20 08:08 Dose: 100 mg Documented by: Apixaban (Eliquis) 5 mg PO BID JEREMÍAS Stop: 05/02/20 21:01 Ascorbic Acid (Vitamin C) 500 mg PO TID JEREMÍAS Stop: 04/25/20 09:01 Last Admin: 04/02/20 14:09 Dose: 500 mg Documented by: Aspirin (Aspirin Chewable) 81 mg PO DAILY JEREMÍAS Stop: 04/25/20 09:01 Last Admin: 04/02/20 08:08 Dose: 81 mg Documented by: Atorvastatin Calcium (Lipitor) 40 mg PO BEDTIME JEREMÍAS Stop: 04/25/20 21:01 Last Admin: 04/01/20 20:17 Dose: 40 mg Documented by: Cholecalciferol (Vitamin D 1000 Iu Tab) 2,000 unit PO DAILY JEREMÍAS Stop: 04/25/20 09:01 Last Admin: 04/02/20 08:08 Dose: 2,000 unit Documented by: Clonazepam (Klonopin) 0.5 mg PO Q8HP JEREMÍAS Stop: 04/24/20 18:01 Dextrose (Dextrose 50% Syringe/Vial) 12.5 gm IV PRN PRN; Protocol PRN Reason: HYPOGLYCEMIA Stop: 04/25/20 16:12 Docusate Sodium (Colace Cap) 100 mg PO DAILY JEREMÍAS Stop: 04/30/20 09:01 Last Admin: 04/02/20 08:08 Dose: 100 mg Documented by: Furosemide (Lasix) 40 mg IV DAILY JEREMÍAS Stop: 04/28/20 09:01 Last Admin: 04/02/20 08:07 Dose: 40 mg Documented by: Glucagon (Glucagen) 1 mg IM 1X PRN; Protocol PRN Reason: HYPOGLYCEMIA Stop: 04/25/20 16:12 Insulin Glargine (Lantus) [address] [facility] Stop: 05/03/20 09:01 Insulin Human Regular (Novolin -R) [address] [facility]; Protocol Stop: 04/25/20 16:31 Last Admin: 04/02/20 16:57 Dose: 9 unit Documented by: Lactulose (Cephulac) 10 gm PO BID PRN PRN Reason: CONSTIPATION Stop: 04/29/20 12:31 Levothyroxine Sodium (Synthroid) 0.1 mg PO DAILYAC JEREMÍAS Stop: 05/02/20 06:31 Last Admin: 04/02/20 05:45 Dose: 0.1 mg Documented by: Melatonin (Melatonin) 3 mg PO BEDTIME JEREMÍAS Stop: 04/25/20 21:01 Last Admin: 04/01/20 20:17 Dose: 3 mg Documented by: Methylprednisolone Sodium Succinate (Solu-Medrol) 80 mg IV Q12HR JEREMÍAS Stop: 05/02/20 21:01 Metolazone (Zaroxolyn) [address] [facility] Stop: 05/01/20 20:01 Last Admin: 04/01/20 20:27 Dose: 10 mg Documented by: Ondansetron HCl (Zofran) 4 mg IV Q6HP PRN PRN Reason: NAUSEA / VOMITING Stop: 04/24/20 17:21 Sodium Chloride (Normal Saline Flush) [address] [facility] Stop: 04/24/20 21:01 Last Admin: 04/02/20 08:39 Dose: 10 ml Documented by: Sotalol HCl (Betapace) [address] [facility] Stop: 04/24/20 21:01 Last Admin: 04/02/20 08:08 Dose: 40 mg Documented by: Thiamine HCl (Vitamin B-1) [address] [facility] Stop: 04/25/20 09:01 Last Admin: 04/02/20 08:07 Dose: 100 mg Documented by: Microbiology Results 03/25/20 14:52 Blood - Blood Aerobic Blood Culture - Final No growth in 5 days. 03/25/20 14:52 Blood - Blood Anaerobic Blood Culture - Final No growth in 5 days. 03/25/20 14:54 Nasopharnyx Influenza Type A Antigen Screen - Final 03/25/20 14:54 Nasopharnyx Influenza Type B Antigen Screen - Final Assessment/ Plan: Nephrology CPS improving without CP. +SOB Feeling a little better. Still requiring Oxygen. No acute events overnight. Vitals, medications, blood work and imaging reviewed in the chart. General: In no apparent distress, Cooperative HEENT: Atraumatic Neck: Supple Respiratory: Clear to auscultation bilaterally Cardiovascular: No edema, Regular rate/rhythm Gastrointestinal: Soft and benign, Non-distended Musculoskeletal: No clubbing, No contractures Integumentary: No rashes, No cyanosis Neurological: Normal speech Blood work reviewed in the chart. Imagings Data: EXAM DESCRIPTION: US - Renal Ultrasound-Complete - 03/29/2020 11:30 am CLINICAL HISTORY: Renal failure COMPARISON: RP EXAM COMPLETE dated 09/25/2014 FINDINGS: The right kidney measures 11.6 x 6.1 x 4.5 cm. The left kidney measures 8.9 x 3.9 x 3.5 cm. Right renal cortical thickness and echogenicity are normal. No right-sided hydronephrosis or mass lesion. Left kidney is atrophic relative to the right with thin cortex and increased cortical echogenicity. No hydronephrosis or mass. Multiple echogenic foci air seen in the bladder with dense posterior acoustic shadowing. These are most likely multiple bladder calcifications. These appear to be within the lumen and not within the wall of the bladder. IMPRESSION: No right kidney abnormality identifiable. Left kidney is atrophic relative to the right and shows evidence for medical renal disease. Cortex is thinned. No left-sided hydronephrosis or mass. Multiple bladder calculi present. Bladder is contracted which somewhat limits assessment. EXAM DESCRIPTION: CT - Chest For Pe Angio - 03/25/2020 5:11 pm CLINICAL HISTORY: cough TECHNIQUE: Dynamically enhanced axial 3 mm thick images of the chest were obtained during administration of <100> mL Isovue 370 IV contrast. Coronal and oblique reconstruction images were generated and reviewed. Exam utilizes a protocol for optimal evaluation of pulmonary arterial tree. The creatinine is 2.2. The referring physician wanted to proceed with the IV contrast in order to detect a pulmonary embolus. Maximum intensity projections 3D imaging was utilized All CT scans are performed using dose optimization technique as appropriate and may include automated exposure control or mA/KV adjustment according to patient size. FINDINGS: A pulmonary embolus is not seen. A thoracic aortic aneurysm is not noted. Small pleural effusions. A pericardial effusion is not seen. Mild to moderate left and [id number] right ground-glass opacities. IMPRESSION: Negative for a pulmonary embolism. Mild to moderate left and [id number]-wl-[id number] right ground-glass opacities can be seen with Covid pneumonia. EXAM DESCRIPTION: [facility] Single View03/25/2020 4:24 pm CLINICAL HISTORY: Shortness breath COMPARISON: 1999 FINDINGS: Bilateral patchy lung opacities The heart is moderately enlarged. Postsurgical changes involve the chest. IMPRESSION: Bilateral patchy lung opacities likely pneumonia Conclusions/Impression: A/ JUAN in the setting of acute illness. Hyponatremia. Hypocalcemia CKD IV with proteinuria HTN with CKD/ CHF. Diastolic CHF, chronic. DM II with CKD. Moderate malnutrition. Nephrolithiasis Acute hyoxic respiratory failure due to COVID19 PNA P/ Continue current POC and Medications. COVID19 Protocol/ Oxygen supplementation. Wean steroid therapy as tolerated. Continue Vitamin D. Increase Lantus prn. Encourage nutrition. No NSAIDs. AM labs. Daily weight.
[2020-04-02] MEDS: ATORVASTATIN 40 MG TAB PO SCH (21:18)
[2020-04-02] MEDS: MELATONIN 3 MG TABLET PO SCH (21:19)
[2020-04-02] MEDS: APIXABAN 5 MG TABLET PO SCH (21:19)
[2020-04-03 05:36] LABS: Ferritin 1119.6 ng/mL (26-388); Potassium 3.4 mmol/L (3.5-5.1)
[2020-04-03] MEDS: LEVOTHYROXINE SOD 0.1 MG TAB PO SCH (06:14)
--- NOTE | 2020-04-03 08:34 | P.PN ---
Subjective Date of Service: 04/03/20 Chief Complaint: COVID-19 PNEUMONIA p patient is doing much better he is now down to 4 L of nasal cannula oxygen no new complaints Review of Systems Respiratory: Shortness of Breath Physical Examination - Vital Signs Temperature: 98.6 F Blood Pressure: 128/63 Pulse: 62 Respirations: 14 Pulse Ox (%): 90 - Physical Exam General: Alert, Oriented x2 Respiratory: Clear to auscultation bilaterally - Studies Medications List Reviewed: Yes Assessment & Plan - Problems (Diagnosis) (1) Pneumonia due to COVID-19 virus Current Visit: Yes Status: Acute Plan: Patient admitted with castelan virus pneumonia he is not improving plan for discharge home on 4 L of nasal cannula oxygen continue with prednisone 10 mg twice a day for at least 2 weeks multi vitamin supplementation (2) Renal failure (ARF), acute on chronic Current Visit: Yes Status: Acute Plan: Renal function is steadily improving no change Qualifiers: Acute renal failure type: unspecified Chronic kidney disease stage: unspecified stage Qualified Code(s): N17.9 - Acute kidney failure, unspecified; N18.9 - Chronic kidney disease, unspecified
[2020-04-03] MEDS: VITAMIN D 1000 UNIT TAB PO SCH (08:37)
[2020-04-03] MEDS: allopurinoL 100 MG TAB PO SCH (08:37)
[2020-04-03] MEDS: SOTALOL HCL 80 MG TAB PO SCH (08:37)
[2020-04-03] MEDS: THIAMINE 200 MG/2 ML INJ IVP SCH (08:38)
[2020-04-03] MEDS: ASPIRIN 81 MG CHEWABLE TABLET PO SCH (08:38)
[2020-04-03] MEDS: DOCUSATE NA 100 MG CAP PO SCH (08:38)
[2020-04-03] MEDS: ASCORBIC ACID 500 MG TABLET PO SCH ×2 (08:38→14:08)
[2020-04-03] MEDS: INSULIN -REGULAR HUMAN 50 UNIT/0.5 ML ML SQ SCH ×3 (08:39→16:47)
[2020-04-03] MEDS: FUROSEMIDE 40 MG/4 ML VIAL IV SCH (08:39)
[2020-04-03] MEDS: METHYLPREDNISOLONE 125 MG INJ IV SCH (08:41)
[2020-04-03] MEDS: APIXABAN 5 MG TABLET PO SCH (08:45)
[2020-04-03] MEDS ORDERED: INSULIN GLARGINE 100 UNITS/ML SQ SCH (09:00)
[2020-04-03 12:07] VITALS: TEMP 97.1
--- NOTE | 2020-04-03 12:45 | P.DS ---
Admission Date: 03/25/20 Discharge Date: 04/03/20 Primary Care Provider: Dr. Valencia; Pulmomary-Dr. Brady Disposition: ROUTINE DISCHARGE Discharge Condition: GOOD Reason for Admission: COVID-19 PNEUMONIA Consultations: Pulmonary-Dr. Brady Nephrology-Dr. Sy Procedures: CT Chest: FINDINGS: A pulmonary embolus is not seen. A thoracic aortic aneurysm is not noted. Small pleural effusions. A pericardial effusion is not seen. Mild to moderate left and bvyzstkt-oi-jzufay right ground-glass opacities. IMPRESSION: Negative for a pulmonary embolism. Mild to moderate left and ftwwgmex-zc-jwpnqg right ground-glass opacities can be seen with Covid pneumonia Renal US: FINDINGS: The right kidney measures 11.6 x 6.1 x 4.5 cm. The left kidney measures 8.9 x 3.9 x 3.5 cm. Right renal cortical thickness and echogenicity are normal. No right-sided hydronephrosis or mass lesion. Left kidney is atrophic relative to the right with thin cortex and increased cortical echogenicity. No hydronephrosis or mass. Multiple echogenic foci air seen in the bladder with dense posterior acoustic shadowing. These are most likely multiple bladder calcifications. These appear to be within the lumen and not within the wall of the bladder. IMPRESSION: No right kidney abnormality identifiable. Left kidney is atrophic relative to the right and shows evidence for medical renal disease. Cortex is thinned. No left-sided hydronephrosis or mass. Multiple bladder calculi present. Bladder is contracted which somewhat limits assessment. Impression: Bilateral COVID 19 pneumonia with hypoxia Acute on chronic renal disease stage II now stage III Diabetes mellitus type 2 insulin-dependent Chronic atrial fibrillation on chronic anti coagulation therapy Hyperlipidemia Hypothyroidism HTN Brief History of Present Illness: 74-year-old male with multiple medical problems including atrial fibrillation, chronic renal disease, diabetes. Patient presented with increasing shortness of breath. Patient recently tested positive for COVID. Patient found to be hypoxic. Patient was admitted for further evaluation and treatment pre Hospital Course: Patient presented with bilateral COVID19 pneumonia and hypoxia. The course of his stay was prolonged. Patient required BiPAP and high-flow. This was eventually weaned off. His CRP improved. Patient was seen by pulmonology as well. The patient has significantly improved. At discharge patient does require home oxygen. At discharge he will continue with home oxygen to maintain sats above 90%. Patient currently on 4 L per nasal cannula. Patient will need to limit activity. At discharge patient will also continue with prednisone 20 mg 1 pill twice daily for 10 days then 1 pill daily for 7 days. Patient will continue with vitamin supplementation including vitamin-D, vitamin-C, melatonin and thiamine. Patient will continue with incentive spirometer. Patient should gradually increase his ambulation. Recommend follow up with pulmonology in 1 week to monitor his progress and further address his prednisone an oxygen use. Patient will continue with CDC guidelines for COVID 19. Patient should practice quarantine, face mask, hand washing and Social distancing. Education on COVID19 will be provided. Patient also had acute on chronic renal disease stage II. Patient was seen by nephrology. Patient was given IV Lasix during the course of his stay due to his infection. At discharge renal function at stage III. At discharge patient will continue with Lasix 40 mg daily. Recommend follow up with nephrology in 1-2 weeks to follow up this hospitalization. Recommend to recheck lab-BMP at that time. Future medications may need to be renally dosed. During the course of his stay multiple medications including losartan has been discontinued due to his renal function. Patient with diabetes mellitus type 2 insulin dependent. Medications had to be adjusted for better diabetic control. Blood sugars will need to be monitored at least twice daily. At discharge will recommend to discontinue Januvia. At discharge patient may continue with Soliqua 60 units daily. Recommend to maintain blood sugar less than 140 fasting and less than 200 after meals. His insulin medication may need to be further adjusted for better control. This can be done with the help of his PCP. Patient with chronic atrial fibrillation on chronic anti coagulation therapy. CT scan did not reveal pulmonary embolism. Patient remained in atrial fibrillation with rate controlled. Due to his COVID infection and acute on chronic renal disease medications were adjusted. Patient no longer on amiodarone. This was replaced with Betapace. Patient also no longer on Xarelto. Patient now on Eliquis. Patient currently stable on his current regimen. At discharge she will continue with Betapace 40 mg 1 pill twice daily and Eliquis 2.5 mg 1 pill twice daily. Recommend follow up with cardiology in 1-2 weeks to follow his progress. Patient with hypothyroidism. At discharge patient will continue with levothyroxine 100 mcg daily. Patient with hypertension. Due to his changes in medication will no longer take hydralazine, losartan, or tore as a send. Recommend to monitor blood pressure daily. Recommend to maintain blood pressure less 150/80. If blood pressure remains above 140/90 consistently the niece to contact his PCP or cuff stitcher for further recommendation. Patient with hyperlipidemia. At discharge patient may continue with pravastatin 40 mg daily. Vital Signs/Physical Exam: Temp Pulse Resp BP Pulse Ox 97.1 F 55 15 136/82 97 04/03/20 12:04/03/20 12:00 04/03/20 12:00 04/03/20 12:04/03/20 12:00 General: Alert, In no apparent distress, Oriented x3 HEENT: Atraumatic Neck: Supple Respiratory: Other (Patient on 4 L per nasal cannula. Patient breathing appropriately.) Cardiovascular: Irregular heart rate/rhythm (Atrial fibrillation rate controlled) Gastrointestinal: Normal bowel sounds, No masses, No rebound, No guarding Musculoskeletal: No tenderness, No warmth Integumentary: No tenderness/swelling, No erythema, No warmth, No cyanosis Neurological: Normal speech, Normal strength at 5/5 x4 extr, Normal tone, Normal affect Laboratory Data at Discharge: WBC 12.5 K/uL (4.3-10.9) H 03/30/20 05:15 Hgb 12.3 g/dL (13.6-17.9) L 03/30/20 05:15 Hct 37.6 % (39.6-49.0) L 03/30/20 05:15 Plt Count 181 K/uL (152-406) 03/30/20 05:15 PT 42.7 SECONDS (9.5-12.5) H 03/25/20 14:52 INR 3.71 03/25/20 14:52 APTT 40.1 SECONDS (24.3-36.9) H 03/25/20 14:52 Sodium 141 mmol/L (136-145) 04/03/20 04:57 Potassium 3.4 mmol/L (3.5-5.1) L 04/03/20 04:57 BUN 65 mg/dL (7-18) H 04/03/20 04:57 Creatinine 1.98 mg/dL (0.55-1.3) H 04/03/20 04:57 Glucose 196 mg/dL (74-106) H 04/03/20 04:57 Phosphorus 3.1 mg/dL (2.5-4.9) 03/30/20 05:15 Magnesium 2.9 mg/dL (1.8-2.4) H 03/30/20 05:15 Total Bilirubin 0.4 mg/dL (0.2-1.0) 03/29/20 05:23 AST 49 U/L (15-37) H 03/29/20 05:23 ALT 66 U/L (12-78) 03/29/20 05:23 Alkaline Phosphatase 95 U/L (45-117) 03/29/20 05:23 Troponin I 0.08 ng/mL (0.0-0.045) H 03/26/20 05:15 Triglycerides 76 mg/dL (<150) 03/26/20 05:15 Cholesterol 73 mg/dL (<200) 03/26/20 05:15 HDL Cholesterol 20 mg/dL (40-60) L 03/26/20 05:15 Cholesterol/HDL Ratio 3.65 03/26/20 05:15 Lipase 50 U/L (73-393) L 03/25/20 14:52 Home Medications: Allopurinol 300 mg PO DAILY 03/26/20 Insulin Glargine/Lixisenatide [Soliqua 100 Unit-33 Mcg/ml Pen] 60 units SQ DAILY 03/26/20 Levothyroxine Sodium [Euthyrox] 100 mcg PO DAILY 03/26/20 Pravastatin Sodium 40 mg PO BEDTIME 03/26/20 Apixaban [Eliquis] 2.5 mg PO BID #60 tablet 04/03/20 Ascorbic Acid [Vitamin C*] 500 mg PO TID #90 tablet 04/03/20 Cholecalciferol (Vitamin D3) [Vitamin D 1000 Iu Tab*] 2,000 unit PO DAILY #60 tab 04/03/20 Docusate [Colace Cap*] 100 mg PO DAILY #15 cap 04/03/20 Furosemide [Lasix] 40 mg PO DAILY #30 tab 04/03/20 Melatonin [Melatonin*] 3 mg PO BEDTIME #30 tablet 04/03/20 Sotalol HCl [Betapace*] 40 mg PO BID #30 tab 04/03/20 predniSONE [Prednisone*] 20 mg PO SEECOM #30 tab 04/03/20 New Medications: Sotalol HCl [Betapace*] 40 mg PO BID #30 tab Docusate [Colace Cap*] 100 mg PO DAILY #15 cap Apixaban [Eliquis] 2.5 mg PO BID #60 tablet Furosemide [Lasix] 40 mg PO DAILY #30 tab Melatonin [Melatonin*] 3 mg PO BEDTIME #30 tablet predniSONE [Prednisone*] 20 mg PO SEECOM #30 tab Ascorbic Acid [Vitamin C*] 500 mg PO TID #90 tablet Cholecalciferol (Vitamin D3) [Vitamin D 1000 Iu Tab*] 2,000 unit PO DAILY #60 tab Patient Discharge Instructions: 1. Follow up with PCP in 1 week. 2. Patient presented with bilateral COVID19 pneumonia and hypoxia. The course of his stay was prolonged. Patient required BiPAP and high-flow. This was eventually weaned off. His CRP improved. Patient was seen by pulmonology as well. The patient has significantly improved. At discharge patient does require home oxygen. At discharge he will continue with home oxygen to maintain sats above 90%. Patient currently on 4 L per nasal cannula. Patient will need to limit activity. At discharge patient will also continue with prednisone 20 mg 1 pill twice daily for 10 days then 1 pill daily for 7 days. Patient will continue with vitamin supplementation including vitamin-D, vitamin-C, melatonin and thiamine. Patient will continue with incentive spirometer. Patient should gradually increase his ambulation. Recommend follow up with pulmonology in 1 week to monitor his progress and further address his prednisone an oxygen use. Patient will continue with CDC guidelines for COVID 19. Patient should practice quarantine, face mask, hand washing and Social distancing. Education on COVID19 will be provided. 3. Patient also had acute on chronic renal disease stage II. Patient was seen by nephrology. Patient was given IV Lasix during the course of his stay due to his infection. At discharge renal function at stage III. At discharge patient will continue with Lasix 40 mg daily. Recommend follow up with nephrology in 1-2 weeks to follow up this hospitalization. Recommend to recheck lab-BMP at that time. Future medications may need to be renally dosed. During the course of his stay multiple medications including losartan has been discontinued due to his renal function. 4. Patient with diabetes mellitus type 2 insulin dependent. Medications had to be adjusted for better diabetic control. Blood sugars will need to be monitored at least twice daily. At discharge will recommend to discontinue Januvia. At discharge patient may continue with Soliqua 60 units daily. Recommend to maintain blood sugar less than 140 fasting and less than 200 after meals. His insulin medication may need to be further adjusted for better control. This can be done with the help of his PCP. 5. Patient with chronic atrial fibrillation on chronic anti coagulation therapy. CT scan did not reveal pulmonary embolism. Patient remained in atrial fibrillation with rate controlled. Due to his COVID infection and acute on chronic renal disease medications were adjusted. Patient no longer on amiodarone. This was replaced with Betapace. Patient also no longer on Xarelto. Patient now on Eliquis. Patient currently stable on his current regimen. At discharge she will continue with Betapace 40 mg 1 pill twice daily and Eliquis 2.5 mg 1 pill twice daily. Recommend follow up with cardiology in 1-2 weeks to follow his progress. 6. Patient with hypothyroidis m. At discharge patient will continue with levothyroxine 100 mcg daily. 7. Patient with hypertension. Due to his changes in medication will no longer take hydralazine, losartan, or tore as a send. Recommend to monitor blood pressure daily. Recommend to maintain blood pressure less 150/80. If blood pressure remains above 140/90 consistently the niece to contact his PCP or cuff stitcher for further recommendation. 8. Patient with hyperlipidemia. At discharge patient may continue with pravastatin 40 mg daily. Diet: ADA Activity: Fall precautions Time spent managing pt's care (in minutes): 55
[2020-04-03 13:30] VITALS: O2SAT 95
[2020-04-03 16:25] VITALS: BP 143/62
--- NOTE | 2020-04-03 21:32 | P.PN ---
Date of Service: 04/03/20 Vital Signs Temp Pulse Resp BP Pulse Ox 97.1 F 63 16 143/62 H 95 04/03/20 12:00 04/03/20 16:00 04/03/20 16:00 04/03/20 16:00 04/03/20 16:00 Microbiology Results 03/25/20 14:52 Blood - Blood Aerobic Blood Culture - Final No growth in 5 days. 03/25/20 14:52 Blood - Blood Anaerobic Blood Culture - Final No growth in 5 days. 03/25/20 14:54 Nasopharnyx Influenza Type A Antigen Screen - Final 03/25/20 14:54 Nasopharnyx Influenza Type B Antigen Screen - Final Assessment/ Plan: Nephrology CPS improving without CP. +SOB Feeling better today with improved strength and appetite. Still requiring Oxygen. No acute events overnight. Vitals, medications, blood work and imaging reviewed in the chart. General: In no apparent distress, Cooperative HEENT: Atraumatic Neck: Supple Respiratory: Clear to auscultation bilaterally Cardiovascular: No edema, Regular rate/rhythm Gastrointestinal: Soft and benign, Non-distended Musculoskeletal: No clubbing, No contractures Integumentary: No rashes, No cyanosis Neurological: Normal speech Blood work reviewed in the chart. Imagings Data: EXAM DESCRIPTION: US - Renal Ultrasound-Complete - 03/29/2020 11:30 am CLINICAL HISTORY: Renal failure COMPARISON: RP EXAM COMPLETE dated 09/25/2014 FINDINGS: The right kidney measures 11.6 x 6.1 x 4.5 cm. The left kidney measures 8.9 x 3.9 x 3.5 cm. Right renal cortical thickness and echogenicity are normal. No right-sided hydronephrosis or mass lesion. Left kidney is atrophic relative to the right with thin cortex and increased cortical echogenicity. No hydronephrosis or mass. Multiple echogenic foci air seen in the bladder with dense posterior acoustic shadowing. These are most likely multiple bladder calcifications. These appear to be within the lumen and not within the wall of the bladder. IMPRESSION: No right kidney abnormality identifiable. Left kidney is atrophic relative to the right and shows evidence for medical renal disease. Cortex is thinned. No left-sided hydronephrosis or mass. Multiple bladder calculi present. Bladder is contracted which somewhat limits assessment. EXAM DESCRIPTION: CT - Chest For Pe Angio - 03/25/2020 5:11 pm CLINICAL HISTORY: cough TECHNIQUE: Dynamically enhanced axial 3 mm thick images of the chest were obtained during administration of <100> mL Isovue 370 IV contrast. Coronal and oblique reconstruction images were generated and reviewed. Exam utilizes a protocol for optimal evaluation of pulmonary arterial tree. The creatinine is 2.2. The referring physician wanted to proceed with the IV contrast in order to detect a pulmonary embolus. Maximum intensity projections 3D imaging was utilized All CT scans are performed using dose optimization technique as appropriate and may include automated exposure control or mA/KV adjustment according to patient size. FINDINGS: A pulmonary embolus is not seen. A thoracic aortic aneurysm is not noted. Small pleural effusions. A pericardial effusion is not seen. Mild to moderate left and [id number]-bf-mvffyq right ground-glass opacities. IMPRESSION: Negative for a pulmonary embolism. Mild to moderate left and [id number]-[id number] right ground-glass opacities can be seen with Covid pneumonia. EXAM DESCRIPTION: [facility] Single View03/25/2020 4:24 pm CLINICAL HISTORY: Shortness breath COMPARISON: 2000 FINDINGS: Bilateral patchy lung opacities The heart is moderately enlarged. Postsurgical changes involve the chest. IMPRESSION: Bilateral patchy lung opacities likely pneumonia Conclusions/Impression: A/ JUAN in the setting of acute illness. Hyponatremia. Hypocalcemia CKD IV with proteinuria HTN with CKD/ CHF. Diastolic CHF, chronic. DM II with CKD. Moderate malnutrition. Nephrolithiasis Acute hyoxic respiratory failure due to COVID19 PNA P/ Continue current POC and Medications. COVID19 Protocol/ Oxygen supplementation. Wean steroid therapy as tolerated. Continue Vitamin D. Increase Lantus prn. Encourage nutrition. OOB as tolerated. No NSAIDs. AM labs. Daily weight.
== END 2020-04-03 18:30 | disposition home or self-care (01) | DRG 177 ==
LOC: ER 13:55 → ERHOLD 17:28 → 3RD-ICU 22:20
PROVIDERS: ADMIT Hospitalist; ATTEND Family Medicine
DX: U07.1 COVID-19 (principal); J12.89 Other viral pneumonia; J80 Acute respiratory distress syndrome; N17.9 Acute kidney failure, unspecified; E87.1 Hypo-osmolality and hyponatremia; I50.32 Chronic diastolic (congestive) heart failure; I13.0 Hypertensive heart and chronic kidney disease with heart failure and stage 1 through stage 4 chronic kidney disease, or unspecified chronic kidney disease; E44.0 Moderate protein-calorie malnutrition; I48.20 Chronic atrial fibrillation, unspecified; N18.3 Chronic kidney disease, stage 3 (moderate); E78.5 Hyperlipidemia, unspecified; E03.9 Hypothyroidism, unspecified; I25.10 Atherosclerotic heart disease of native coronary artery without angina pectoris; E11.22 Type 2 diabetes mellitus with diabetic chronic kidney disease; E83.51 Hypocalcemia; Z85.038 Personal history of other malignant neoplasm of large intestine; Z95.5 Presence of coronary angioplasty implant and graft; Z79.4 Long term (current) use of insulin; Z79.890 Hormone replacement therapy; Z79.01 Long term (current) use of anticoagulants; Z79.899 Other long term (current) drug therapy; Z68.32 Body mass index [BMI] 32.0-32.9, adult
CPT/HCPCS: 36415; 71045; 71275; 76770; 80048; 80053; 80061; 80076; 81003; 82570; 82728; 82947; 83605; 83615; 83690; 83735; 83880; 84100; 84145; 84300; 84484; 85025; 85379; 85610; 85730; 86140; 87040; 87804; 93005; 94660; 94760; 96365; 96375; 99285; J0456; J0696; J1650; J1815; J1940; J2930; J3411; J7030; J7040; J7050; Q9967

== ENCOUNTER 2021-07-13 13:21 | Emergency (ER) | payer OTHER ==
--- OUTSIDE RECORDS SUMMARY | 2021-07-13 13:24 | XMS REPORT | Continuity of Care Document ---
:1945 Author Organization [facility] t Address [address] [place] [address] Care Team Providers Name Role Phone PREZAS Primary Care Physician Unavailable Ralph DERAS Attending Clinician Unavailable Only, Test Attending Clinician Unavailable Ralph Deras MD Attending Clinician Doctor Unassigned, Name Attending Clinician Unavailable ADRIÁN Attending Clinician Unavailable Adrián SULLIVAN Attending Clinician GC_TEG_Boccalandro_C Attending Clinician Unavailable Kaylene Reveles Attending Clinician [phone] CHARLEY Attending Clinician Unavailable PRETI Attending Clinician Unavailable GC_TEG_Boccalandro_C Admitting Clinician Unavailable Payers Payer Name Policy Type Policy Number Effective Date Expiration Date S lio MEDICARE PART A [id number] 2008 \T\ B 00:00:00 MEDICARE B-[place]: [id number] 2007 NOVCell [employer] niid.to 00:00:00 MEDICARE A B [id number] 2008 00:00:00 Problems This patient has no known problems. Allergies, Adverse Reactions, Alerts Allergy Allergy Status Severity Reaction(s) Onset Inactive Treating Comm ents Source Name Type Date Date Clinician NO KNOWN Allergy Active [facility] ALLERGIE S NO KNOWN Drug Active Univers ALLERGIE Class ity of S [facility] Lisinopr Adverse Active Info Not [facility] Social History Social Habit Start Date Stop Date Quantity Comments Source Exposure to Not sure [facility] SARS-CoV-2 (event) Medica l Branch Sex Assigned At [birth year] [facility] 00:00:00 00:00:00 Medical Branch Smoking Status Start Date Stop Date Source Unknown if ever smoked [facility] Medications Ordered Filled Start Stop Current Ordering Indication Dosage Frequency Signature Comments Components Source Medication Medication Date Date Medication? Clinician (SIG) Name Name Benzonatate Benzonatate 2019-0 2020- No Na Valencia [address] [facility] 03-23 as needed [facility] 00 :00 l [facility] Clinics Synthroid Synthroid Yes Na Valencia [address] [facility] in the [facility] morning on [facility]oria an empty l stomach [facility] Allopurinol Allopurinol Yes Na Valencia [address] [facility] Januvia Januvia Yes Na Valencia [address] [facility] Tricor Tricor Yes Na Valencia [address] [facility] Melatonin Melatonin Yes Na Valencia [address] [facility] at bedtime [facility] - as needed [facility]oria l [facility] Benicar Benicar Yes Na Valencia [address] [facility] Aspirin Aspirin Yes Na Valencia [address] Adult Low Adult Low [facility] Dose Dose Memoria l [facility] Losartan Losartan Yes Na Valencia [address] [facility] Potassium Potassium [facility] HydrALAZINE HydrALAZINE Yes Na Valencia [address] [facility] HCl HCl with food [facility] Xarelto Xarelto Yes Na Valencia [address] with food [facility] Betapace Betapace Yes Na Valencia [address] [facility] Lasix Lasix Yes Na Valencia [address] [facility] PredniSONE PredniSONE Yes Na Valencia [address] [facility] Hytrin Hytrin Yes Na Valencia not [facility] defined [facility] Terazosin Terazosin Yes Na Valencia [address] [facility] [address] HCl HCl at bedtime [facility] Multaq Multaq Yes Na Valencia [address] [facility] with meals [facility] Soliqua Soliqua Yes Na Valencia as [facility] directed [facility] Pravachol Pravachol Yes Na Valencia [address] [facility] Jublia Jublia Yes Na Valencia [address] [facility] applicatio [facility] Eliquis 2.5 Eliquis 2.5 Yes Na Valencia [facility] mg mg [facility] Cholecalcif Cholecalcif Yes Na Valencia as [facility] ysah-Vitami yash-Vitami directed [facility] Amiodarone Amiodarone Yes Na Valencia [address] [facility] [address] HCl HCl [facility] Ascorbic Ascorbic Yes Na Valencia [address] [facility] Acid Acid [facility] Docusate Docusate Yes Na Valencia [address] [facility] Sodium Sodium as needed [facility] Procedures Procedure Date / Time Performing Clinician Source Performed AGREEMENTS AUTHORIZATIONS 2021-06-07 05:01:00 Doctor Unassigned, [facility] AND IRREVOCABLE [place] [facility] ASSIGNMENTS (FORM 2001) ASSIGNMENT OF BENEFITS 2021-01-03 19:49:57 Doctor Unassigned, [facility] [place] [facility] Encounters Start End Encounter Admission Attending Care Care Encounter Source Date/Time Date/Time Type Type Clinicians Facility Department ID 2021-06-07 2021-06-07 Outpatient R [facility] [id number] Univers 08:45:00 08:45:00 [id number] [facility] 2021-06-07 2021-06-07 Outpatient R LUDA [facility] [id number] Univers 08:45:00 08:45:00 LAMINE [facility] 2021-06-07 2021-06-07 Laboratory Only, Adc Test [facility] 1.2.840. [id number] Univers 08:26:07 08:41:07 Only Lamine Deras [id number] ity of [place] 4.2.7.2.686 [facility] [phone] [address] 2021-06-07 2021-06-07 Orders Doctor CAMILO [id number] Univers 00:00:00 00:00:00 Only Unassigned, [place] [id number] ity of [place] [facility] 4.2.7.2.686 [place] as [id number] [address] 2021-01-03 2021-01-03 Outpatient Stanley SAMPSON, [facility] [id number] Univers 15:15:00 15:15:00 AMADEO blackwood [facility] 2021-01-03 2021-01-03 Laboratory Only, Adc Test [facility] 1.2.840. [id number] Univers 14:54:54 15:09:54 Only Amadeo Sampson [id number] ity of [place] 4.2.7.2.686 [facility] [id number] [address] 2021-01-03 2021-01-03 Orders Doctor PAGE [id number] Univers 00:00:00 00:00:00 Only Unassigned, [place] 350.1.13.10 ity of [place] [facility] 4.2.7.2.686 [place] as [id number] [address] 2020-12-12 2020-12-12 Outpatient STLMLC [facility]LMLC [id number] [facility] St 00:00:00 00:00:00 Emil Alexis ent Clinics 2020-12-09 2020-12-09 Outpatient GC_TEG_Bocc PRIV PRIV [id number] [facility] 07:14:00 07:14:00 Cece [id number] [facility] 2020-12-06 2020-12-06 Outpatient GC_TEG_Bocc PRIV PRIV [id number] [facility] 02:19:00 02:19:00 alandro_C [id number] [facility] 2020-12-04 2020-12-04 Outpatient GC_TEG_Bocc PRIV PRIV [id number] [facility] 11:01:00 11:01:00 alandro_C [id number] [facility] 2020-12-04 2020-12-04 Outpatient Abdirizak, PRIV PRIV [id number] 00:00:00 00:00:00 Xenia [id number] Kaylene [id number] 2020-11-08 2020-11-08 Outpatient [facility]LMLC [facility] [id number] [facility] 2020-08-29 2020-08-29 Outpatient [facility]LMLC [facility] [id number] [facility] 2020-08-07 2020-08-07 Outpatient STLMLC [facility] [id number] [facility] 2020-07-02 2020-07-02 Outpatient [facility]LMLC [facility] [id number] [facility] 2020-07-02 2020-07-02 Outpatient STLMLC [facility] [id number] [facility] 2020-06-25 2020-06-25 Outpatient [facility]LMLC [facility] [id number] [facility] 2020-06-11 2020-06-11 Outpatient [facility]LMLC [facility] [id number] [facility] 2020-06-10 2020-06-10 Outpatient STLMLC [facility] [id number] [facility] 2020-06-05 2020-06-05 Outpatient EL MAGO [facility] [id number] [facility] 00:00:00 00:00:00 KIRA OLMSTEAD 2020-05-20 2020-05-20 Outpatient [facility]LMLC [facility] [id number] [facility] 2020-05-15 2020-05-15 Outpatient [facility] [id number] [facility] 2020-05-13 2020-05-13 Outpatient [facility] [id number] [facility] 2020-05-02 2020-05-02 Outpatient [facility] [id number] [facility] 2020-05-01 2020-05-01 [facility] [id number] 2020-04-12 2020-04-12 [facility] [id number] [facility] 11:30:00 11:30:00 [place] [facility] - [facility] Out[facility] Clinics 2020-04-04 2020-04-04 [facility] [id number] [facility] 10:00:00 10:00:00 t Medialive s - Drive [facility] Out[facility] Clinics 2020-03-25 2020-03-25 [facility] [id number] [address] 08:19:00 08:19:00 t [place] [facility] - [facility] Out[facility] Clinics 2020-03-23 2020-03-23 [facility] [id number] [address] 12:42:00 12:42:00 t [place] [facility] - [facility] Outpat[facility] Clinics 2020-03-21 2020-03-21 [facility] [id number] 12:00:00 12:00:00 t Medialive s - Drive [facility] Medicine l Medicine Outpati ent Clinics 2020-03-21 2020-03-21 [facility] [id number] 11:24:00 11:24:00 [place] [facility] ent [facility] 2020-03-21 2020-03-21 [facility] [id number] 08:39:00 08:39:00 [facility] [employer] [facility] 2019-10-04 2019-10-04 Outpatient [facility] [place] [id number] 10:00:00 10:00:00 [facility] 2019-07-12 2019-07-12 Outpatient PRETI, [facility] [id number] [address] [place] [address] 00:00:00 00:00:00 STANLEY [address] Results Test Description Test Time Test Comments Results Result Sourc e Comments MRI LUMBAR WO 2021-03-27 11:25:36 [facility] IMAGINGName: RON ELLIOTT : 1945 Sex: M CLINICAL INDICATION: M54.16, Radiculopathy, lumbar region M19.90, Unspecified osteoarthritis, unspecified site MODALITY: Siemens Hansoftyra 3.0 Nydia MRI TECHNIQUE: Multiplanar multi sequence MRI examination of the lumbar spine was performed.IMPRESSION:1. No acute fracture.2. Modic type 1 degenerative change (bone marrow edema) of the opposing endplates at L2-L3 asymmetric to the right. Severe disc height loss at this level.3. Moderate foraminal stenosis left L5-S1. Mild bilateral foraminal stenosis L2-L3.FINDINGS:COMPARISON : 03/20/2021 lumbar spine radiographGeneral observations: Five lumbar type vertebrae are identified with a rudimentary disc at S1-S2. There is straightening of the lumbar spine with otherwise preserved sagittal alignment. Chronic mild superior endplate compression deformities of L2-L3 are noted.There is bone marrow edema, asymmetric to the right, of the opposing endplates at L2-L3 most consistent with Modic type 1 degenerative change. Severe disc height loss, again asymmetric to the right, at L2-L3 is noted.No spinal canal stenosis is present. The conus terminates at mid L2. Prevertebral and paraspinal soft tissues are unremarkable. Severe atrophy of the left kidney is noted.FINDINGS AT SPECIFIC LEVELS:L5-S1: Disc desiccation with advanced disc height loss there is maría sacralization of L5 on the left. Moderate facet arthropathy. Right foramen is patent. Moderate left foraminal stenosis.L4-L5: Disc desiccation with preserved disc height. Mild to moderate facet arthropathy. Foramina are patent.L3-L4: Disc desiccation with preserved disc height. Mild facet arthropathy. Foramina are patentL2-L3: Disc desiccation with advanced disc height loss asymmetric to the right where there is modic type 1 degenerative change. Mild facet arthropathy. Mild foraminal narrowing bilaterally.L1-L2: Disc height is preserved. Facets are unremarkable. Foramina are patent. MRI KNEE T LT 2021-03-27 WO CONTRAST 11:02:58 [facility]: RON [facility]LL[facility] : 1945 Sex: M CLINICAL INDICATION: M25.562, Pain in left knee M19.90, Unspecified osteoarthritis, unspecified site MODALITY: Siemens Skyra 3.0 Nydia MRITECHNIQUE: Multiplanar multisequence MRI of the left knee was performed .IMPRESSION:1. Grade 2 sprain of the medial collateral ligament.2. Small joint effusion.FINDINGS:COMPARI SON: none MENISCI: Prominent grade 1 signal is present in the posterior horn of medial meniscus. The lateral meniscus is intact.CRUCIATE LIGAMENTS: Anterior and posterior cruciate ligaments are intact.COLLATERAL LIGAMENTS: Grade 2 sprain involves the medial collateral ligament, superior to the medial joint line.OSSEOUS STRUCTURES AND CARTILAGINOUS SURFACES: No fractures or destructive osseous lesions are seen. Marrow signal is unremarkable. High-grade chondral lesion in the medial or lateral compartment is not seen.PATELLOFEMORAL COMPARTMENT: Patellofemoral alignment is normal. High-grade patellar or trochlear groove chondromalacia is not seen.MISCELLANEOUS FINDINGS: Small joint effusion is present. Trace fluid is present in the gastrocnemius - semimembranosus bursa. CR - XRAY KNEE XR 2021-03-20 4 OR MORE VWS LT ::13 [facility] IMAGINGName: RON ELLIOTT : 1945 Sex: M CLINICAL INDICATION: M17.9, Osteoarthritis of knee, unspecifiedMODALITY: X-rayTECHNIQUE: Three-view radiographs of the left knee FINDINGS:COMPARISON STUDY: NoneAlignment of the left knee is maintained. Mild disc space narrowing of the medial compartment is noted. No acute fractures are seen. Vascular calcifications are noted.IMPRESSION:Mild osteoarthrosis of the medial compartment CR - XRAY KNEE XR 2021-03-20 4 OR MORE VWS RT ::23 [facility] IMAGINGName: RON ELLIOTT : 1945 Sex: M CLINICAL INDICATION: M17.9, Osteoarthritis of knee, unspecifiedMODALITY: X-rayTECHNIQUE: Three-view radiograph of the right kneeFINDINGS:COMPARISON STUDY: NoneTricompartmental osteoarthrosis is noted most pronounced in the lateral compartment where there is moderate joint space narrowing. No acute fractures are seen. Vascular calcifications are identified.IMPRESSION:Tri compartmental osteoarthrosis most pronounced at the lateral compartment CR - XRAY LUMBAR 2021-03-20 XR MIN OF 4 VIEWS 13:17:00 [facility] IMAGINGName: RON ELLIOTT : 1945 Sex: M CLINICAL INDICATION: M54.16, Radiculopathy, lumbar regionFINDINGS:COMPARISON : NoneFive lumbar vertebrae are present. Mild dextroconvex scoliotic curvature of the lumbar spine is noted. Sagittal alignment is maintained with a straightened lordosis.Wedge compression deformities of L2 and L3 are noted and are age indeterminate. There is no retropulsion.There is severe disc height loss at L1-L2, L4-L5 and L5-S1. Multilevel facet arthropathy is also present.IMPRESSION:1. Wedge compression deformities of L2 and L3, these are age indeterminate. Correlate with point tenderness and MRI is needed.2. Multilevel advanced disc height loss and facet arthropathy. Radiologic 2021-03-20 examination, 13:06:13 hips, bilateral, [facility] with pelvis when IMAGINGName: LEXI, performed; 3-4 RON : views [[id number]] 1945 Sex: M CLINICAL INDICATION: M19.90, Unspecified osteoarthritis, unspecified siteFINDINGS:COMPARISON: NoneThe hip joints are well preserved. There are no significant marginal osteophytes. The femoral heads and necks appear intact. There are no intra-articular abnormalities.No fractures, dislocations or destructive lesions are seen. High-density material in the lower pelvis which could represent calcified structures in the pelvis or ingested material within the colon.Vascular calcifications.IMPRESSION :Negative bilateral hips. MR, CARDIAC, 2020-06-05 PT HAD COVID WITHOUT 17:41:00 19Unlisted Reason for PATRICIA GOLDBERG - Exam - Click [facility]: Yes and Enter RON ELLIOTT Reason : 1945 Below->YesUnl Sex: isted Reason M for Exam->MYOCARD FINAL REPORT ITIS I51.4 Cardiac MRI dated 05-Jun-20 INDICATION: This is a 74 year-old male with diagnosis of myocarditis presents for assessment. Patient has prior history of ischemic heart disease, post coronary artery bypass surgery. According to patient, six bypass graft was placed. Patient has recent viral infection, concern for potential myocarditis. TECHNIQUE: Rupal ACHIEVA MRI scanner. Morphologic and dynamic cine imaging were performed in multiple projections before and after contrast administration. Thereafter, gadolinium was administered, which was followed by viability/scar imaging. Finally, flow quantification sequences were performed to determine the degree of valvular dysfunction. Please refer to the contrast sheet scanned in the EPIC system for the amount and route of contrast given. Scanning blood pressure was 145/82. Patient weighs 180 pounds, with height of 66 inches. Body surface area is approximately 1.99 sq m. FINDINGS: The chest wall and mediastinum appears unremarkable. Patient is post median sternotomy. No pericardial effusion is identified. The central pulmonary artery is prominent. There is trace left basal pleural effusion identified and mild right basal pleural effusion is seen. The cardiac chambers demonstrate normal atrioventricular and ventriculoarterial concordance, and systemic and pulmonary venous return. The thoracic aorta is normal in course, calibre, and contour. There is mild atherosclerosis is evident in the descending thoracic aorta. There is no evidence of acute aortic pathology, such as dissection, intramural hematoma, or contained rupture. The left ventricle is normal in size, however, there is more directed systolic dysfunction. In the short axis orientation, the majority of the inferior wall and the adjacent lateral wall is severely hypokinetic/akinetic. In the available images no obvious myocardial oedema is identified. Quantitative values are as follows: EDV = 172 cc; ESV = 108 cc; stroke volume = 64 cc; and ejection fraction = 37%. Calculated absolute cardiac output = 4.9 liters/min. Absolute left ventricular mass = 156 grams. The right ventricle is normal in size and function. Quantitative values are as follows: EDV = 132 cc; ESV = 60 cc; stroke volume = 71 cc; and ejection fraction = 54%. Cine imaging and flow quantification reveals a tricuspid aortic valve. By planimetry, aortic valve area is at least 2.2 sq cm indicating the absence of aortic stenosis. Mitral regurgitation is identified, and mitral regurgitant fraction 27%, and tricuspid regurgitation is identified with tricuspid regurgitant fraction of 34%. Viability/scar imaging reveals no evidence of epicardial hyperenhancement that may suggest underlying myocarditis. However, prior myocardial injury is identified, specifically, despite the most basal 1 cm of the inferior wall is viable, majority of the inferior wall has near transmural scar present (up to 75%). The entire lateral wall has subendocardial scar present (25 to 50% thickness). The entire septum is essentially is viable. Majority of the anterior wall is viable though in the mid anterior wall, subendocardial scar is identified (25 to 50%). The apex is fully viable as well as the inferoapex. Ventricular thrombus is not present. Left and right atrial prominence is identified. Flow curves indicates raised left and right atrial pressures. The IVC and hepatic veins are also prominent. CONCLUSIONS: 1. The left ventricle is normal in size, with moderate systolic dysfunction, and segmental wall motion modalities as described above. Ejection fraction is quantified to be 37%. Quantitative left ventricular functional values are as described above. At the time of examination, there is no definitive evidence of myocarditis, in the absence of subepicardial hyperenhancement. 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 The entire lateral wall has subendocardial scar present (25 to 50% thickness). The entire septum is essentially is viable. Majority of the anterior wall is viable though in the mid anterior wall, an area of subendocardial scar is identified (25 to 50%). 2. The right ventricle is normal in size and function. Quantitative right ventricular functional values as described above. No abnormal enhancement of the right ventricular myocardium is seen after contrast administration. 3. Mild mitral regurgitation and more directed tricuspid regurgitation, with regurgitant fraction = 27% and 34%, respectively. 4. Left and right atrial enlargement is identified. Raised left and right atrial pressure is seen. The IVC and hepatic veins are prominent. Bibasal pleural effusions identified, right greater than left. The constellation of finding appears to be more suggestive of cardiomyopathy due to underlying ischaemic heart disease. Please kindly correlate clinically. Signed: Alec Cohen MDReport Verified Date/Time: 06/05/2020 17:41:44 Reading Location: [place] [address] [address] Reading Room -CREATININE 2020-06-05 10:35:00 Test Item Value Reference Range Interpretation Comme nts POC-CREATININE (BEAKER) 1.4 mg/dL 0.6-1.3 H : TE STED AT [facility] [address] (test code = 1859) AUGUSTE Caitie Anastacia, [id number]: Gantry Crane Operator/Techni letty ID = [id number] for Jina Corcoran POC-EGFR (BEAKER) (test 49 mL/min/1.73M2 code = 1860)
--- NOTE | 2021-07-13 14:39 | RAD REPORT ---
EXAM DESCRIPTION: CT - Facial Bones W/ Mpr - 07/13/2021 2:13 pm CLINICAL HISTORY: Fall, blunt force trauma to the face COMPARISON: None. TECHNIQUE: Axial 2 millimeter thick images of the facial bones were obtained with sagittal and coron al reconstruction imaging. All CT scans are performed using dose optimization technique as appropriate and may include automated exposure control or mA/KV adjustment according to patient size. FINDINGS: Mandible fracture identified. Condyles of the mandible are normally positioned. No mandibl e acute tooth finding seen. There are 2 teeth missing in the midline believed to be chronic. Mastoid air cells and middle ears are clear. There is no skullbase fracture identified. Dense calcifications are seen in the internal carotid arteries. No displaced nasal bone fracture seen. No fracture of the nasal septum identified. Facial bones are i ntact. Mucosal thickening seen in each maxillary sinus and in the ethmoid air cells. No globe or orbi anabell content abnormality seen. IMPRESSION: No facial bone fracture identified. Paranasal sinus mucosal thickening without air-fluid level or evidence for acute injury.
--- NOTE | 2021-07-13 14:43 | RAD REPORT ---
EXAM DESCRIPTION: CT - CTHCSPWOC - 07/13/2021 2:12 pm CLINICAL HISTORY: PAIN, fall with blunt force trauma to the face, head and neck pain COMPARISON: No comparisons TECHNIQUE: Axial 5 mm thick images of the head were obtained. Axial 2 mm thick images of the cervic al spine were obtained with sagittal and coronal reconstruction images generated and reviewed. All CT scans are performed using dose optimization technique as appropriate and may include automated exposure control or mA/KV adjustment according to patient size. FINDINGS: No intracranial hemorrhage, mass, edema or acute intracranial finding. No suspicion for ac point lay ira infarction. No extra-axial fluid collections. Atrophy and chronic ischemic changes are mild. Vent ricles are in proportion to any volume loss. Mastoid air cells are clear. No skullbase fracture. The globes, orbits and paranasal sinuses are separately detailed. Cervical bodies are normal in height. There is very slight anterior subluxation of C5 on C6 from face t degenerative change. Slight disc space narrowing is present throughout the cervical spine. No patho logic bone process seen. Facet joint degenerative changes are present. Uncovertebral hypertrophy and facet hypertrophy cause right foraminal stenosis C3-4 and left foraminal stenosis C4-5. Mild bilatera l foraminal stenosis at C5-6. Patient has incomplete union of the lamina into the C7 body. There is d evelopmental variant at the origin of the right first rib as well. No fracture or acute bony abnormal ity. Central canal detail is inherently limited. No paraspinal mass or hematoma. IMPRESSION: Negative CT head examination for acute or significant finding. Atrophy and chronic ische dony changes are minimal. Orbits, facial bones and sinuses are separately detailed. Cervical spine degenerative changes are present as detailed. No acute finding.
--- NOTE | 2021-07-13 14:58 | EDPHYS ---
Physician Documentation [facility] Name: Penelope De Leon Age: 75 yrs Sex: Male : 1945 Arrival Date: 07/13/2021 Time: 13:23 Bed 7 Private MD: ED Physician Dinesh Jimenes HPI: 07/13 14:00 This 75 yrs old Male presents to ER via Unassigned with complaints of Fall ma2 Injury. 14:00 Details of fall: The patient fell from an upright position. Onset: The symptoms/episode ma2 began/occurred suddenly, 1 hour(s) ago. Severity of symptoms: At their worst the symptoms were moderate, in the emergency department the symptoms are unchanged. The patient has not experienced similar symptoms in the past. 14:00 Associated injuries: The patient sustained injury to the head. Patient tripped, fell ma2 hit his nose and head, left knee abrasion, takes blood thinner.. Historical: - Allergies: 13:25 NSAIDS; iw - PMHx: 13:25 Atrial Fib; bypass x6; CAD; colon cancer; Diabetes - NIDDM; Gout; Hyperlipidemia; iw Hypertension; Hypothyroidism; Kidney stones; - Immunization history:: Adult Immunizations up to date, Client reports receiving the 2nd dose of the Covid vaccine. - Social history:: Patient/guardian denies using alcohol, street drugs, The patient lives with family, Smoking status: Patient denies any tobacco usage or history of. - Immunization history: Last tetanus immunization: - up to date. - Family history:: not pertinent. ROS: 14:00 Constitutional: Negative for fever, chills, and weight loss. ma2 14:00 All other systems are negative. Exam: 14:00 Constitutional: This is a well developed, well nourished patient who is awake, alert, ma2 and in no acute distress. Head/Face: Nasal and forehead abrasion, otherwise normocephalic, atraumatic. Eyes: Pupils equal round and reactive to light, extra-ocular motions intact. Lids and lashes normal. Conjunctiva and sclera are non-icteric and not injected. Cornea within normal limits. Periorbital areas with no swelling, redness, or edema. ENT: Nares patent. No nasal discharge, no septal abnormalities noted. Tympanic membranes are normal and external auditory canals are clear. Oropharynx with no redness, swelling, or masses, exudates, or evidence of obstruction, uvula midline. Mucous membranes moist. Neck: Trachea midline, no thyromegaly or masses palpated, and no cervical lymphadenopathy. Supple, full range of motion without nuchal rigidity, or vertebral point tenderness. No Meningismus. Chest/axilla: Normal chest wall appearance and motion. Nontender with no deformity. No lesions are appreciated. Cardiovascular: Regular rate and rhythm with a normal S1 and S2. No gallops, murmurs, or rubs. Normal PMI, no JVD. No pulse deficits. Respiratory: Lungs have equal breath sounds bilaterally, clear to auscultation and percussion. No rales, rhonchi or wheezes noted. No increased work of breathing, no retractions or nasal flaring. Abdomen/GI: Soft, non-tender, with normal bowel sounds. No distension or tympany. No guarding or rebound. No evidence of tenderness throughout. Back: No spinal tenderness. No costovertebral tenderness. Full range of motion. Skin: Warm, dry with normal turgor. Normal color with no rashes, no lesions, and no evidence of cellulitis. MS/ Extremity: Left knee abrasion, otherwise full range of motion. Pulses equal, no cyanosis. Neurovascular intact. Full, normal range of motion. Neuro: Awake and alert, GCS 15, oriented to person, place, time, and situation. Cranial nerves II-XII grossly intact. Motor strength 5/5 in all extremities. Sensory grossly intact. Cerebellar exam normal. Normal gait. Vital Signs: 13:33 BP 156 / 84; Pulse 60; Resp 17; Pulse Ox 96% on R/A; Pain 0/10; jh6 14:30 BP 167 / 76; Pulse 66; Resp 17; Pulse Ox 100% ; Pain 2/10; jh6 15:35 BP 170 / 77; Pulse 72; Resp 18; Pulse Ox 100% ; Pain 1/10; jh6 Zi Coma Score: 13:36 Eye Response: spontaneous(4). Verbal Response: oriented(5). Motor Response: obeys jh6 commands(6). Total: 15. MDM: 13:28 Patient medically screened. ma2 14:00 Differential diagnosis: abrasion, closed head injury, contusion, sprain, strain. ma2 14:56 Data reviewed: vital signs, nurses notes. Counseling: I had a detailed discussion with ma the patient and/or guardian regarding: the historical points, exam findings, and any diagnostic results supporting the discharge/admit diagnosis, the presence of at least one elevated blood pressure reading (>120/80) during this emergency department visit, the need for outpatient follow up. Response to treatment: the patient's symptoms have markedly improved after treatment. 07/13 13:44 Order name: CT Facial Bones W/O Con; Complete Time: 14:55 ma2 07/13 13:49 Order name: Head C Spine Mpr Wo Con; Complete Time: 14:55 EDMS Administered Medications: No medications were administered Disposition Summary: 07/13/21 14:57 Discharge Ordered Location: Home ma2 Condition: Stable ma2 Diagnosis - Fall (on)(from) sidewalk curb - facial abrasion ma2 Followup: ma2 - With: Private Physician - When: Tomorrow - Reason: If symptoms return, Continuance of care Discharge Instructions: - Discharge Summary Sheet ma2 - Facial or Scalp Contusion, [id number] ma2 Forms: - Medication Reconciliation Form ma2 - Thank You Letter ma2 - Antibiotic Education ma2 - Prescription Opioid Use ma2 Signatures: Dispatcher [employer] EDMS Danya Sharma, RN RN Dinesh Jimenes MD MD mn2 Sue Marmolejo RN RN jh6 Corrections: (The following items were deleted from the chart) 13:49 13:44 Head Brain Wo Cont+CT.RAD.BRZ ordered. EDMS EDMS 13:49 13:44 C Spine Wo Con+CT.RAD.BRZ ordered. EDMS EDMS
--- NOTE | 2021-07-13 14:58 | ER ---
Nurse's Notes [facility] Name: Penelope De Leon Age: 75 yrs Sex: Male : 1945 Arrival Date: 07/13/2021 Time: 13:23 Bed 7 Private MD: Diagnosis: Fall (on)(from) sidewalk curb-facial abrasion Presentation: 07/13 13:23 Chief complaint: EMS states: tripped and fell into concrete after getting out of [place], abrasion to face and left knee, is on blood thinners, hx of Afib CHF, denies LOC, A\T\OX3, Irish speaking. 13:23 Acuity: FER 3 13:35 Coronavirus screen: Vaccine status: Patient reports receiving the 2nd dose of the covid jh6 vaccine. Client denies travel out of the [place] in the last 14 days. At this time, the client does not indicate any symptoms associated with coronavirus-19. Ebola Screen: Patient negative for fever greater than or equal to 101.5 degrees Fahrenheit, and additional compatible Ebola Virus Disease symptoms. Initial Sepsis Screen: Does the patient meet any 2 criteria? No. Patient's initial sepsis screen is negative. Does the patient have a suspected source of infection? No. Patient's initial sepsis screen is negative. Risk Assessment: Do you want to hurt yourself or someone else? Patient reports no desire to harm self or others. Onset of symptoms was July 13, 2021. 15:45 Care prior to arrival: None. Mechanism of Injury: Fall standing, tripped over concrete. [facility] 15:45 Method Of Arrival: Ambulatory [facility] Historical: - Allergies: 13:25 NSAIDS; iw - PMHx: 13:25 Atrial Fib; bypass x6; CAD; colon cancer; Diabetes - NIDDM; Gout; Hyperlipidemia; Hypertension; Hypothyroidism; Kidney stones; - Immunization history:: Adult Immunizations up to date, Client reports receiving the 2nd dose of the Covid vaccine. - Social history:: Patient/guardian denies using alcohol, street drugs, The patient lives with family, Smoking status: Patient denies any tobacco usage or history of. - Immunization history: Last tetanus immunization: - up to date. - Family history:: not pertinent. Screenin:34 Abuse screen: Denies threats or abuse. Nutritional screening: No deficits noted. jh6 Tuberculosis screening: No symptoms or risk factors identified. Fall Risk Fall in past 12 months (25 points). Primary Survey: 13:34 NO uncontrolled hemorrhage observed. A: The patient is alert. Airway: patent. jh6 Breathing/Chest: Respiratory pattern: regular, Respiratory effort: spontaneous, unlabored, Breath sounds: clear. Circulation: Cardiac rhythm: sinus rhythm. Disability Alert. 13:37 Exposure/Environment: There is no evidence of uncontrolled external bleeding. Obvious jh6 injury(ies) are noted at this time: abrasions to face/. Assessment: 13:32 General: Appears in no apparent distress. comfortable, Behavior is calm, cooperative. jh6 Pain: Denies pain. Derm: abrasions to forehead and bridge of nose. 14:30 Reassessment: No changes from previously documented assessment. Patient and/or family jh6 updated on plan of care and expected duration. Pain level reassessed. Patient is alert, oriented x 3, equal unlabored respirations, skin warm/dry/pink. Patient states feeling better. 15:35 Reassessment: Patient and/or family updated on plan of care and expected duration. Pain jh6 level reassessed. wounds to face cleaned and bandaged, verbal understanding of dc instructions and wound care at home. Patient states symptoms have improved. Vital Signs: 13:33 BP 156 / 84; Pulse 60; Resp 17; Pulse Ox 96% on R/A; Pain 0/10; jh6 14:30 BP 167 / 76; Pulse 66; Resp 17; Pulse Ox 100% ; Pain 2/10; jh6 15:35 BP 170 / 77; Pulse 72; Resp 18; Pulse Ox 100% ; Pain 1/10; jh6 Odell Coma Score: 13:36 Eye Response: spontaneous(4). Verbal Response: oriented(5). Motor Response: obeys jh6 commands(6). Total: 15. ED Course: 13:23 Patient arrived in ED. iw 13:24 Triage completed. iw 13:28 Dinesh Jimenes MD is Attending Physician. ma2 13:31 Sue Marmolejo RN is Primary Nurse. jh6 13:35 Arm band placed on left wrist. jh6 13:36 Bed in low position. Call light in reach. Side rails up X 1. jh6 13:37 No provider procedures requiring assistance completed. [facility] 14:12 Head C Spine Mpr Wo Con In Process Unspecified. EDMS 14:13 CT Facial Bones W/O Con In Process Unspecified. EDMS Administered Medications: No medications were administered Outcome: 14:57 Discharge ordered by . luciano 15:45 Discharged to home ambulatory. [facility] 15:45 Condition: improved 15:45 Discharge instructions given to patient, family, Instructed on discharge instructions, follow up and referral plans. Demonstrated understanding of instructions, follow-up care, wound care. 15:47 Patient left the ED. [facility] Signatures: Dispatcher [employer] Danya Durán, RN RN Dinesh Whitlock MD MD ma2 Hastedt, Jennifer, RN RN [facility]
[2021-07-13 15:56] VITALS: O2SAT 100
[2021-07-13 15:58] VITALS: BP 170/77
== END 2021-07-13 15:47 | disposition home or self-care (01) ==
LOC: ER 13:21
DX: S00.81XA Abrasion of other part of head, initial encounter (principal); W01.0XXA Fall on same level from slipping, tripping and stumbling without subsequent striking against object, initial encounter; I10 Essential (primary) hypertension; Z95.1 Presence of aortocoronary bypass graft; Z88.6 Allergy status to analgesic agent
CPT/HCPCS: 70450; 70486; 72125; 76377; 99283